=== PATIENT | female | born 1975 | race Caucasian/White ===

== ENCOUNTER 2018-11-18 05:00 | Inpatient (IN) | payer BC ==
[2018-11-14 16:17] LABS: BASOPHILS # (AUTO) 0.1 (0.0-0.1); BASOPHILS % 1.2 % (0.0-1.0); EOSINOPHILS # (AUTO) 0.3 (0.0-0.4); EOSINOPHILS % 3.3 % (0.0-6.0); HEMATOCRIT 38.8 % (34.2-44.1); HEMOGLOBIN 12.6 g/dL (12.0-16.0); LYMPHOCYTES # (AUTO) 2.2 (1.0-3.2); LYMPHOCYTES % 29.3 % (18.0-39.1); MEAN CORPUSCULAR HEMOGLOBIN 29.9 pg (28-32); MEAN CORPUSCULAR HGB CONC 32.5 g/dL (31-35); MEAN CORPUSCULAR VOLUME 91.9 fL (81-99); MONOCYTES # (AUTO) 0.8 (0.2-0.8); NEUTROPHILS # (AUTO) 4.3 (2.1-6.9); NEUTROPHILS % 55.9 % (38.7-80.0); PLATELET COUNT 215 x10e3/uL (140-360); RED BLOOD COUNT 4.22 x10e6/uL (3.6-5.1); RED CELL DISTRIBUTION WIDTH 13.4 % (11.7-14.4)
[2018-11-14 16:36] LABS: ANION GAP 11.5 mmol/L (8-16); CALCIUM 8.1 mg/dL (8.4-10.2); CREATININE, SERUM 1.71 mg/dL (0.57-1.11); POTASSIUM 4.5 mmol/L (3.5-5.1)
[2018-11-18] VITALS (41 sets, daily range): BP systolic 5–161; BP diastolic 28–95
[~2018-11-18] VITALS: Ht 167.6 cm; Wt 103.0 kg
[~2018-11-18 05:00] MED LIST: AMITRIPTYLINE H25 MG PO; ASPIRIN325 MG PO; ATORVASTATIN CA10 MG PO; B 100 PO; CYMBALTA30 MG PO; DECARA25000 UNIT PO; GABAPENTIN300 MG PO; GENERLAC10 GM/15 M PO; LISINOPRIL10 MG PO; METOPROLOL SUCC50 MG PO; NOVOLIN 70/30 SQ; OMEPRAZOLE40 MG PO; ONDANSETRON PO; ROPINIROLE HC0.25 MG PO; SPIRONOLACTONE25 MG PO; TYLENOL WITH C1 EACH PO
--- OUTSIDE RECORDS SUMMARY | 2018-11-18 05:08 | XMS REPORT ---
Author Author [facility] Address Unknown Phone Unavailable Care Team Providers Care Russet Repairer Name Role Phone Unavailable Unavailable Payers Payer Name Policy Type Policy Number Effective Date Expiration Date Problems This patient has no known problems. Allergies, Adverse Reactions, Alerts Allergy Name Allergy Type Status Severity Reaction(s) Onset Date Inactive Date Treating Clinician Comments carisoprodol DA Active SV 2018-01-18 00:00:00 prednisone DA Active U 2018-01-18 00:00:00 daptomycin DA Active SV 2018-01-18 00:00:00 Medications This patient has no known medications. Results Test Description Test Time Test Comments Text Results Atomic Results Result Comments - XR ENEMA W/AIR 2018-09-24 16:08:00 FAX: Lasha Tarango [phone] [place]: [address] St: REG Name: [facility] : 1975 Age/S: 43/F [address] Unit #: [id number] Loc: [place] [address] Phys: Lasha Garcia MD Acct: [id number] Dis Date: Status: REG CLI PHONE #: [phone] Exam Date: 09/24/2018 1112 FAX #: [phone] Reason: EPIGASTRIC [id number] EXAMS: CPT CODE: [id number] XR ENEMA W/AIR [id number] REASON FOR EXAM: EPIGASTRIC [id number] Exam Order Date: 09/24/2018 8:35 AM Attending Darshan: Lasha Garcia MD PROCEDURE: Gastrografin enema and double contrast barium enema FINDINGS: The patient was brought to radiology and placed supine on the table. The aircraft machinist radiograph shows scattered mild amount of stool in the colon. The patient was then placed in a left lateral decubitus position. An enema tip was introduced within the rectum. The retention balloon was inflated. Gastrografin was introduced within the colon through the rectal tube. There is a high-grade irregular stricture of the distal sigmoid colon near the rectum. The remaining portion of the colon is grossly unremarkable. The Gastrografin was evacuated. A repeat double contrast barium enema with focus on the sigmoid colon was performed. Again there is a high-grade irregular stenosis of the distal sigmoid colon near the rectum. Fluoroscopic time: 66 sec Fluoroscopic dose: 348 mGy Fluoroscopic images: 30 IMPRESSION: Short segment high-grade (80%) stenosis of the distal sigmoid colon with irregular wall, multiple core appearing lesion suspicious for neoplasm. at 1606 Reported and signed by: Luis Amador M.D. CC: Lasha Garcia MD Technologist: Anahi solomon; STUDENT TECHNOLOGIST Trnscrd Date/Time/By: 09/24/2018 (2647) : By: ParthaVTL Orig Print D/T: S: 09/24/2018 (8032) PAGE 1 Signed Report
[2018-11-18] MEDS ORDERED: INSULIN REGULAR, HUMAN 100 UNIT/1 ML 3ML VIAL ONE ×2 (06:21→11:26)
[2018-11-18] MEDS ORDERED: BUPIVACAINE HCL 0.5% INJ 30 ML VIAL INJ ONE (06:40)
[2018-11-18] MEDS ORDERED: LEVOFLOXACIN 500MG/D5W 100ML 100 ML IV ONE (07:16)
[2018-11-18] MEDS ORDERED: METRONIDAZOLE 500MG/NS 100ML 100 ML IV ONE (07:16)
[2018-11-18] MEDS ORDERED: METHYLENE BLUE 1% INJ 10 ML VIAL INJ ONE (09:27)
[2018-11-18] MEDS ORDERED: IOPAMIDOL 610MG/1ML 300 MG/ML VIAL IV ONE (09:31)
[2018-11-18] MEDS ORDERED: NALOXONE HCL INJ 0.4 MG/ML AMP IV PRN (11:00)
[2018-11-18] MEDS ORDERED: DIPHENHYDRAMINE HCL INJ 50 MG/ML VIAL IM PRN (11:00)
[2018-11-18] MEDS ORDERED: ACETAMINOPHEN 1000 MG/100 ML IV PRN ×2 (11:00→19:15)
[2018-11-18] MEDS ORDERED: MORPHINE SULFATE 1 MG/ML 30ML PCA IV PRN ×2 (11:00→13:00)
[2018-11-18] MEDS ORDERED: DEXTROSE 50% SYRINGE 50 ML IV PRN ×2 (11:00→19:15)
[2018-11-18] MEDS ORDERED: MORPHINE SULFATE 1 MG/ML 30ML PCA ONE (11:21)
[2018-11-18] MEDS ORDERED: INSULIN LISPRO 100 UNIT/1 ML 3ML VIAL SQ SCH (11:30)
--- NOTE | 2018-11-18 11:48 | NUR ---
RECEIVED REPORT FROM [facility] IN OR WAITING FOR PT TO ARRIVE TO UNIT
[2018-11-18] MEDS ORDERED: LEVOFLOXACIN 500MG/D5W 100ML 100 ML IV SCH (12:00)
--- NOTE | 2018-11-18 12:15 | NUR ---
PT ARRIVED TO FLOOR DROWSY BUT ALERT. PT ABD DRESSING ARE CLEAN AND DRY. SON DRAIN FULL EMPTIED 80CC. CHECKED CUSTOMS AND BORDER PROTECTION INSPECTOR PUMP WITH SHAWN AT BEDSIDE. PT UNDERSTANDS TO PRESS IF NEEDED PT IS NPO FOR S/P RESECTION BEATTY IN PLACE DRAINING CLEAR YELLOW URINE WILL TAKE V/S NOW
--- NOTE | 2018-11-18 12:20 | NUR ---
PT BP LOW UPON ARRIVAL TO UNIT, PT AROUSES WITH STERNAL RUB, BUT DROWSY ATTEMPTED TO TAKE BP MANUALLY UNABLE TO GET A READING CLAMPED BANDER AND CELLOPHANER MACHINE HELPER PUMP AND STARTED A BOLUS AT THIS TIME RAPID CALLED
--- NOTE | 2018-11-18 12:25 | NUR ---
RAPID RESPONSE TEAM ASSESSING PT, UPON ARRIVAL PT PLACE ON O2 2L , BOLUS FLOWING WITH LR , NEW IVSTARTED TO THE LEFT AC FOR ADDITIONAL ACCESS IF INDICATED . TEAM HAS AGREED PT IS CANDIDATE FOR ICU FLOOD FOR BETTER MONITORING .
--- NOTE | 2018-11-18 12:33 | NUR ---
Call placed to Dr. diaz at this time to inform that patient's blood pressure was low and we were bolusing her fluids at this time. Inquiring about other orders. Bolus patient with one liter of fluids. Went to assess patient in room with flood nurse and noted BP to be dropping noted at 61/37. Rapid response called.
[2018-11-18] MEDS ORDERED: NALOXONE HCL INJ 0.4 MG/ML AMP ONE (12:42)
--- NOTE | 2018-11-18 12:44 | NUR ---
Call placed to Dr. Palacios and informed of the new orders from Dr. diaz and the current situation of this patient. New orders to transfer to icu and continue with the rapid response. IV antibiotics were changed as well. Orders noted
[2018-11-18] MEDS ORDERED: LACTATED RINGER'S 1,000 ML ONE ×2 (12:55→18:24)
--- NOTE | 2018-11-18 13:10 | NUR ---
MD CESAR WAS NOTIFIED OF SITUATION. AGREED WITH PLAN OF CARE. PT IS ON SECOND BOLUS OF LR AT THIS TIME BP HAS ELEVATED WITH FLUIDS AND DOSE OF [facility] EMERGENCY MEDICINE PHYSICIAN ANDREA GARCIA IS STAYING WITH PT UNTIL TRANSFER IS COMPLETE. PT BP IS NOW 86/40 HR OF 85 SAT 100 ON 2L FAMILY IS AT BEDSIDE AND AWARE OF PLAN OF CARE.
[2018-11-18 13:12] LABS: ABG PH 7.33 (7.31-7.41)
[2018-11-18 13:13] LABS: ABG HCO3 23 mmol/L (23-28); ABG PCO2 43 mmHg (41-51); ABG PO2 104 mmHg (80-105)
[2018-11-18 13:19] LABS: BASOPHILS # (AUTO) 0.1 (0.0-0.1); BASOPHILS % 0.4 % (0.0-1.0); EOSINOPHILS # (AUTO) 0.1 (0.0-0.4); EOSINOPHILS % 0.9 % (0.0-6.0); HEMATOCRIT 35.5 % (34.2-44.1); HEMOGLOBIN 11.6 g/dL (12.0-16.0); LYMPHOCYTES # (AUTO) 1.6 (1.0-3.2); MEAN CORPUSCULAR HEMOGLOBIN 29.6 pg (28-32); MEAN CORPUSCULAR HGB CONC 32.7 g/dL (31-35); MEAN CORPUSCULAR VOLUME 90.6 fL (81-99); MONOCYTES # (AUTO) 0.8 (0.2-0.8); MONOCYTES % 6.3 % (4.4-11.3); NEUTROPHILS # (AUTO) 9.7 (2.1-6.9); NEUTROPHILS % 78.9 % (38.7-80.0); PLATELET COUNT 206 x10e3/uL (140-360); RED BLOOD COUNT 3.92 x10e6/uL (3.6-5.1); RED CELL DISTRIBUTION WIDTH 13.3 % (11.7-14.4)
--- NOTE | 2018-11-18 13:40 | NUR ---
PT TRANSFERRED TO ICU AT THIS TIME
[2018-11-18 13:43] LABS: ANION GAP 11.4 mmol/L (8-16); CALCIUM 7.7 mg/dL (8.4-10.2); CREATININE, SERUM 1.4 mg/dL (0.57-1.11); POTASSIUM 4.4 mmol/L (3.5-5.1)
--- NOTE | 2018-11-18 14:27 | Operative Report ---
DATE OF PROCEDURE: 11/18/2018 SURGEON: Ej Mcgee MD PREOPERATIVE DIAGNOSIS: Rectosigmoid colon stricture. POSTOPERATIVE DIAGNOSES: Rectosigmoid colon stricture and transected ureter. PROCEDURES: Laparoscopic-assisted rectosigmoid colon resection with coloproctostomy. GEOSPATIAL APPLICATIONS DEVELOPER: None. ANESTHESIA: General. INDICATIONS AND FINDINGS: The patient is a 43-year-old female with complaints of pain with constipation. Workup revealed a stricture in the rectosigmoid colon. Surgery, there was dense fibrosis around the distal sigmoid colon extending into the rectum, where there was fibrosis in the rectosigmoid colon with area of stricture that appeared to be possibly secondary to ischemia or chronic inflammation. After the resection was done, it was noted that the ureter on the left side was transected requiring repair by Urology, Dr. aBch. There was no tumor that could be identified. There was no free fluid in the abdomen. Liver had changes of cirrhosis. Small bowel appeared normal. TECHNIQUE: After adequate general endotracheal anesthesia, the patient in supine position and legs in Yellofins stirrups, the abdomen and perineum were prepped and draped in a sterile fashion with ChloraPrep to the abdomen and Betadine to the perineum. Initially, laparoscopy was done. 0.5% Marcaine infiltrated the umbilicus. Incision was made in the umbilicus, abdominal wall was elevated and Veress needle was introduced. Pneumoperitoneum was then created. A 10 mm trocar and cannula was then passed through this wound. Laparoscopic camera was introduced. Initial laparoscopy revealed extensive adhesions to lower abdomen involving the omentum. A 5 mm trocar and cannula was placed in the epigastrium just to the left of midline. The adhesions involving the omentum were lysed using a LigaSure device. Once the adhesions were lysed enough, a 5 mm trocar and cannula was placed to the left of the midline suprapubically. The left colon was mobilized by dividing peritoneal attachments. The colon was mobilized up to the splenic flexure. Colon was completely mobilized down to the sigmoid colon, where there was found to be extensive adhesions and fibrosis around the colon. Colon was mobilized. Care was taken not to injure the colon. Once the colon down to the mid sigmoid were mobilized, I decided to switch to open surgery because the adhesions became very dense, difficult to visualize. Through a lower midline incision, the peritoneal cavity was entered. The remaining adhesions involving the omentum were lysed. Omentum was adherent in the pelvis. This also was lysed. There was considerable adhesions and fibrosis around the colon. Colon was mobilized further by dividing peritoneal attachments. The left ureter was identified and preserved. As the colon was mobilized, there were very extensive adhesions around the distal sigmoid colon with fibrosis. Care was taken to stay close to the colon. The ureter had been identified as the colon was mobilized, however, it was freed from all the adhesions. Bladder was also adherent to the colon and was freed from the bladder. Colon was mobilized distally. I decided at this point to divide the colon. This was done on the distal sigmoid colon, divided with PEDRO PABLO stapler, mesentery was then divided with LigaSure device. As the colon was mobilized further, it was found to have significant fibrosis around the colon. Mesentery was divided straight down to the sacral prominence and then the mesentery divided with LigaSure device and the colon was mobilized. The area of stricture was found to be in the rectosigmoid junction. As the colon was mobilized further, vessels going into the colon were divided with LigaSure device until the colon was completely free from the bladder and free below the area of the stricture, which was palpable, grossly appeared to be significant fibrosis of the colon. Once the colon was completely free below the area of the stricture, a TX 60 stapler was placed across the rectum below the area of the stricture, staple line fired, colon was divided and removed. The proximal colon was then mobilized, easily reached the pelvis and then using an EEA stapler, anastomosis was made between the proximal and distal colon. Pursestring suture of 2-0 silk was placed into the side of the proximal colon, anvil placed in the colon, a pursestring suture tied around the anvil, EEA stapler was introduced transanally and anastomosis made between the proximal colon and the rectum using the EEA stapler and once it was completed, tissue donuts were seen to be intact. The pelvis was filled with saline and air instilled through the rectum and there was no evidence of any leakage. Examination of pelvis, ureter was identified, as I entered close to the pelvis, it was found that there was an area where the ureter was transected. With this identified, Urology was called, Dr. Bach, and the ureter was repaired directly with the details covered in Dr. Bach's operative note. Once this was completed, the wound was irrigated with saline, inspected for hemostasis, which was seen to be adequate. A 19-Dutch Robin drain was placed into the area of the ureteral repair through a separate stab wound incision. The midline fascia was closed with running suture of #1 PDS. Subcutaneous tissue was irrigated with saline. Skin to all wounds closed with gretel. Sterile dressing was applied. The patient tolerated procedure well. Estimated blood loss was 300 mL. There were no complications. All counts were correct. The patient was taken to the recovery room in satisfactory condition. MD RADHA TavarezG/MODL /[id number] cc: MD Emily Cabrera MD
[2018-11-18] MEDS: ONDANSETRON HCL INJ 2MG/ML 2ML 2 MG/ML VIAL IV PRN (14:40)
[2018-11-18] MEDS: DEXTROSE 5%/LACTATED RINGERS 1,000 ML IV SCH ×2 (14:56→18:59)
[2018-11-18] MEDS: METRONIDAZOLE 500MG/NS 100ML 100 ML IV SCH ×2 (14:56→18:24)
[2018-11-18] MEDS: MORPHINE SULFATE INJ 4 MG/ML INJ 1ML IV PRN (16:48)
[2018-11-18] MEDS ORDERED: PROPOFOL IV EMULSION 10 MG/ML 20 ML VIAL ONE (17:49)
[2018-11-18] MEDS ORDERED: ROCURONIUM BROMIDE 10 MG/ML 5ML VIAL ONE (17:49)
[2018-11-18] MEDS ORDERED: LIDOCAINE HCL 2% LOCAL INJ 5 ML SDV VIAL INJ ONE (17:49)
[2018-11-18] MEDS ORDERED: ONDANSETRON HCL INJ 2MG/ML 2ML 2 MG/ML VIAL ONE (17:49)
[2018-11-18] MEDS ORDERED: SEVOFLURANE INHAL SOLN 250 ML PEN BTL ONE (17:49)
[2018-11-18] MEDS ORDERED: FENTANYL CITRATE/PF 100MCG/2 ML INJ ONE (18:22)
[2018-11-18] MEDS ORDERED: MIDAZOLAM HCL 2 MG/2 ML VIAL ONE (18:22)
[2018-11-18] MEDS: PIPER-TAZ 3.375 GM 50 ML IV SCH (18:24)
--- NOTE | 2018-11-18 18:55 | NUR ---
nursing report given to assembler 1st shift rn
[2018-11-18] MEDS ORDERED: LACTATED RINGER'S 500 ML IV ONE (19:15)
[2018-11-18] MEDS ORDERED: VANCOMYCIN 1GM/NS 250 ML 250 ML IV ONE (19:45)
--- NOTE | 2018-11-18 20:24 | NUR ---
PATIENT received from med surg 1 after artificial breeding distributor called at 1220. patient lethargic, hypotensive. starting ivf's as ordered. abdominal incisions dressing intact but rlq oozing drainage. gustavo drain emptied twice during icu transfer. notified Dr. Palacios, Mikala, and Arely all updated with patient status. new orders received. miranda catheter changed for 20Fr 10cc nonsilicone per Dr. Bach order. pt tolerated miranda exchange well.
[2018-11-18] MEDS ORDERED: PNEUMOCOCCAL VACCINE POLYVALENT 23 MCG/0.5 ML VIAL IM NR (20:30)
[2018-11-18] MEDS ORDERED: LIDOCAINE HCL 2% LOCAL 20 ML VIAL ONE ×2 (20:40→20:46)
--- NOTE | 2018-11-18 21:00 | NUR ---
While rounding on another patient Dr. Ravinder Jacobs observed patient's critical BP status and was informed Dr. Joey Palacios had ordered a central line to be placed for Vasopressors. At that time Dr. Jacobs offered to place the central line since it would take several hours for IR to arrive and do so. Central line was placed at 2044 without incident or patient distress. Chest X-ray obtained and line placement confirmed.
[2018-11-18 21:16] LABS: HEMATOCRIT 35.2 % (34.2-44.1); HEMOGLOBIN 11.6 g/dL (12.0-16.0)
[2018-11-18] MEDS: NOREPINEPHRINE INJ 4MG/4ML 8 MG in DEXTROSE 5% 250ML 250 ML IV PRN (21:40)
--- NOTE | 2018-11-18 21:53 | Diagnostic Imaging Report ---
Examination: Single AP view of the chest. COMPARISON: None. INDICATION: Status post central line placement IMPRESSION: 1. Lines and Tubes: Right IJ central line has distal tip projecting near the cavoatrial junction 2. Hypoinflated lungs with bibasilar atelectasis. No definite consolidation or effusion. No pneumothorax. 3. Enlarged cardiac silhouette, which may be due to AP projection and low lung volumes. The intravenous crowding, likely due to low lung volumes. 4. No acute bony abnormalities. Signed by: Dr. Kareem Pelaez M.D. on 11/18/2018 9:50 PM
[2018-11-18] MEDS: INSULIN LISPRO 100 UNIT/1 ML 3ML VIAL SQ SCH (22:00)
--- NOTE | 2018-11-18 22:38 | NUR ---
Left message with Dr. Maxwell's answering service regarding consult at 9930. Awaiting return call.
[2018-11-18] MEDS: PANTOPRAZOLE 40 MG 10ML VIAL IV SCH (23:30)
--- NOTE | 2018-11-18 23:44 | Consultation ---
DATE OF CONSULTATION: 11/18/2018 SERVICE: Urology. HISTORY OF PRESENT ILLNESS: This is a 43-year-old, who underwent resection of the sigmoid colon anastomosis for stricture and abdominal pain. During the procedure, the surgeon noticed that the ureter on the left side was transected above the junction between the operative two-third and lower third of the ureter. At that point, I was called in. Lower abdominal incision between the umbilicus and symphysis pubis was done and the 2 edges of the ureter were identified. Dissection was done on the proximal as well as distal. The blood supply appeared to be good for both segments. At this point, trimming of the distal was done on each side and stay sutures were placed. Both sides were spatulated in the opposite direction. A 7-Chinese 26 cm long double-J stent was then positioned proximally as well as distally. The anastomosis was then carried using a 4-0 Vicryl absorbable sutures. Interrupted sutures were placed anteriorly and then the ureter was flipped and additional sutures were placed posteriorly. The anastomosis appeared to be watertight. The trimmed area of very distal ureter on both edges was removed. The omentum was then brought down and placed on the anastomosis. A #19 Robin was brought out with separate stab incision on the right side of the abdomen and I placed in the pelvis on the right side. Following this, wound was closed with running PDS suture and skin was approximated with skin gretel. This was done with Dr. Mcgee. The patient appeared to be stable. PHYSICAL EXAMINATION: VITAL SIGNS: Blood pressure was 125/80, pulse 80. The patient is on respirator. Appeared to be quite obese. CHEST: Clear. ABDOMEN: Incision is in the lower abdomen between symphysis pubis and umbilicus. EXTREMITIES: Lower extremities, unremarkable. LABORATORY DATA: Reviewed. White count on 11/14/2018 was 7.6, hemoglobin 12.6, creatinine 1.4 on 11/18/2018 and electrolytes otherwise normal. No urinalysis was present at that time. IMPRESSION: 1. Injury to the left ureter and junction between the operative third and lower third. 2. Status post colon resection of the sigmoid for a sigmoid stricture and abdominal pain. 3. Obesity. PLAN: Dr. Mcgee advised anastomosis of the ureter to correct the injury is required. Decision was made about this procedure. MD GRACIELA Pedraza/JOHNATHAN /[id number]
[2018-11-19] VITALS (42 sets, daily range): BP systolic 77–141; BP diastolic 32–107
--- NOTE | 2018-11-19 00:19 | Operative Report ---
DATE OF PROCEDURE: 11/18/2018 SURGEON: Emily Bach MD SERVICE: Urology. PREOPERATIVE DIAGNOSES: 1. Injury, transection of the left ureter, the junction between the upper two-third and lower third. 2. Status post resection of sigmoid stricture. 3. Obesity. POSTOPERATIVE DIAGNOSES: 1. Injury, transection of the left ureter, the junction between the upper two-third and lower third. 2. Status post resection of sigmoid stricture. 3. Obesity. OPERATIONS PERFORMED: 1. End-to-end anastomosis of the ureter following spatulation of both sides and excision of the edge. 2. Placement of omentum surrounding the anastomosis. 3. Placement of a drain 19 Robin. 4. Placement of double-J stent through the ureterotomies, 7 English 26 cm longer. 5. X-ray to verify the proper position of the stents. Radiologist is not present. MORTGAGE LOAN ASSISTANT: Ej Mcgee MD. DESCRIPTION OF PROCEDURE AND FINDINGS: Both edges of the ureter were identified. Stay sutures were placed and the edges were spatulated. Following this, a double-J stent was properly positioned in the proximal as well as distal. Anastomosis was created with no tension at all and end-to-end anastomosis was done using the spatulated of both edges. 4-0 absorbable Vicryl suture was used, interrupted sutures were placed. The edge, this was excised and removed. The anastomosis appeared to be watertight. Following this, the omentum was freed and brought down and placed around the anastomosis. A 19-Robin drain was inserted. A stab wound on the right side of the lower abdomen was used to introduce the drain that was placed in the left side around the . Following this, with Dr. Mcgee, the lower abdominal incision was closed with running #2 PDS, which was used. The skin was approximated with skin gretel. The patient tolerated the procedure well. Estimated blood loss for the . The patient was transferred to the recovery room. Emily Bach MD [facility]/MODL /[id number]
[2018-11-19] MEDS: PIPER-TAZ 3.375 GM 50 ML IV SCH ×4 (00:35→18:34)
[2018-11-19] MEDS ORDERED: SODIUM CHLORIDE 0.9% 250ML 250 ML ONE (00:37)
[2018-11-19] MEDS: METRONIDAZOLE 500MG/NS 100ML 100 ML IV SCH ×4 (01:00→18:34)
[2018-11-19] MEDS: INSULIN LISPRO 100 UNIT/1 ML 3ML VIAL SQ SCH ×6 (01:29→21:01)
[2018-11-19] MEDS: MORPHINE SULFATE INJ 4 MG/ML INJ 1ML IV PRN ×6 (02:38→23:05)
--- NOTE | 2018-11-19 02:40 | Consultation ---
DATE OF CONSULTATION: 11/18/2018 REASON FOR CONSULTATION: Medical management. CHIEF COMPLAINT: Status post sigmoid colon resection with complication of injury to the right ureter, status post right ureteral resection by Dr. Bach. SUMMARY: The patient is a 43-year-old female with postoperative hypotension and possible infection. The patient transferred to the ICU on multiple IV boluses of fluid. Her systolic blood pressure is improving, the systolic now is 104 over 57 diastolic. The patient received lactated Ringer. She seems in pain, but not in any respiratory distress. The patient is improving with her blood pressure previously was systolic in the 80s. The patient is awake. BUN and creatinine noted of 18 and 1.4 respectively. The patient had a Tillman catheter in place. She had a SON drain on the right side. She has some significant output at this time. The patient is in ICU, continue with ICU Critical Care. PAST MEDICAL HISTORY: Including liver cirrhosis, major depression, diabetes type 2, fatty liver, gastroparesis, reflux, hypertension, chronic kidney disease, history of stroke with right-sided weakness. History of back surgery, knee surgery, , hysterectomy, appendectomy, and liver biopsy. The patient is now status post rectosigmoid colon stricture resection with transected ureter with estimated blood loss approximately 300 mL. PHYSICAL EXAMINATION: VITAL SIGNS: Temperature is 98, blood pressure 104/57, pulse rate 100, and respirations 18. GENERAL: The patient is critically stable. HEENT: Normocephalic, atraumatic. Anicteric. NECK: Supple grossly. PULMONARY: Diminished breath sounds. CARDIOVASCULAR: Slightly tachycardic. ABDOMEN: Status post surgery as mentioned above. Tillman catheter in place. Diminished bowel sounds appropriate. EXTREMITIES: SCD in place. NEUROLOGIC: The patient is aphasic. She has right-sided weakness due to previous stroke. At baseline, the patient is able to ambulate with walker and assistance. LABORATORY DATA: Sodium is 137, potassium 4.4, chloride 107, bicarb 23, BUN 18, creatinine 1.4, glucose 241. WBC 12.2, hemoglobin 11.6, hematocrit 35.5, and platelets 206. IMPRESSION: 1. Status post operative day #1 sigmoid colon stricture, status post resection with right ureteral injury, status post repair. 2. Hypotension, most likely postop reaction, could be from infection, possible sepsis versus volume depletion. We will see resuscitation note. 3. Baseline multiple chronic medical problems. PLAN: Obtain repeated lab work in the morning. Continue with antibiotic, change the Levaquin to Zosyn for broader coverage. We will add on vancomycin 1 g. Continue with metronidazole IV. IV fluid resuscitation, insulin sliding scale coverage. We will do H and H every 6 hours and if needed, we will transfuse the patient. Currently, the patient is stable in the ICU with her sister by her bedside. MD GISELLE Ibrahim/MICHAELL /[id number]
[2018-11-19 03:46] LABS: HEMATOCRIT 35.9 % (34.2-44.1); HEMOGLOBIN 11.7 g/dL (12.0-16.0)
[2018-11-19] MEDS: DEXTROSE 5%/LACTATED RINGERS 1,000 ML IV SCH ×3 (03:59→19:49)
--- NOTE | 2018-11-19 04:05 | Operative Report ---
DATE OF PROCEDURE: 11/18/2018 SURGEON: Kris Jacobs MD PREOPERATIVE DIAGNOSIS: Anemia secondary to chronic blood loss and sigmoid colon stricture. POSTOPERATIVE DIAGNOSIS: Anemia secondary to chronic blood loss and sigmoid colon stricture. CONSENT: Consent was obtained from the patient and the family. ANESTHESIA: 1% lidocaine was used for local anesthesia. PROCEDURE: Central line placement under ultrasound guidance. PROCEDURE IN DETAIL: The patient was placed in a supine position. The ultrasound was used to locate the right internal jugular vein. The patient was then prepped sterilely. Ultrasound was again used to locate the right internal jugular vein. The right internal jugular vein was cannulated on the first attempt with a 16-gauge needle. A wire was then passed through the needle and the triple-lumen catheter was passed over the wire by the Seldinger technique. All the ports were flushed. The chest x-ray is pending. COMPLICATIONS: None. ESTIMATED BLOOD LOSS: None. Kris Jacobs MD [facility]/MODL /[id number]
[2018-11-19 05:28] LABS: BASOPHILS # (AUTO) 0.1 (0.0-0.1); BASOPHILS % 0.5 % (0.0-1.0); EOSINOPHILS # (AUTO) 0.1 (0.0-0.4); EOSINOPHILS % 0.9 % (0.0-6.0); HEMATOCRIT 35.4 % (34.2-44.1); HEMOGLOBIN 11.4 g/dL (12.0-16.0); LYMPHOCYTES # (AUTO) 1.5 (1.0-3.2); LYMPHOCYTES % 10.4 % (18.0-39.1); MEAN CORPUSCULAR HGB CONC 32.2 g/dL (31-35); MEAN CORPUSCULAR VOLUME 90.1 fL (81-99); MONOCYTES # (AUTO) 1.4 (0.2-0.8); MONOCYTES % 9.6 % (4.4-11.3); NEUTROPHILS # (AUTO) 11.6 (2.1-6.9); NEUTROPHILS % 78.1 % (38.7-80.0); PLATELET COUNT 268 x10e3/uL (140-360); RED BLOOD COUNT 3.93 x10e6/uL (3.6-5.1); RED CELL DISTRIBUTION WIDTH 13.6 % (11.7-14.4)
[2018-11-19 05:44] LABS: INR 1.25; PROTHROMBIN TIME 16.3 seconds (11.9-14.5)
[2018-11-19 05:45] LABS: PARTIAL THROMBOPLASTIN TIME 35.1 seconds (23.8-35.5)
[2018-11-19 05:53] LABS: ALBUMIN/GLOBULIN RATIO 0.7 (0.8-2.0); ANION GAP 9.3 mmol/L (8-16); CALCIUM 7.5 mg/dL (8.4-10.2); CREATININE, SERUM 1.58 mg/dL (0.57-1.11); POTASSIUM 4.3 mmol/L (3.5-5.1)
[2018-11-19] MEDS ORDERED: SODIUM CHLORIDE 0.9% 1000ML 1,000 ML IV ONE (06:00)
[2018-11-19] MEDS ORDERED: LEVOFLOXACIN 500MG/D5W 100ML 100 ML IV SCH (09:00)
[2018-11-19] MEDS: PANTOPRAZOLE 40 MG 10ML VIAL IV SCH (11:30)
--- NOTE | 2018-11-19 14:11 | Diagnostic Imaging Report ---
CT BRAIN WO HISTORY: Right arm weakness COMPARISON: None. TECHNIQUE: Noncontrast axial scans were obtained from skull base to the vertex. Coronal and sagittal reconstructions obtained from the axial data. One or more of the following dose reduction techniques were used: Automated exposure control, adjustment of the mA and/or kV according to patient size, and/or utilization of iterative reconstruction technique. DISCUSSION: Scalp/Skull: Unremarkable. Brain sulci: Appropriate for patient's age. Ventricles: Mild ex vacuo dilatation of the left lateral ventricle. Otherwise, unremarkable Extra-axial spaces: No masses or fluid collections. Parenchyma: Focal loss of mon-white differentiation along the left precentral gyrus and postcentral gyrus may be due to acute or subacute ischemia. Adjacent cystic encephalomalacia along the anterior left centrum semiovale and yi radiata is compatible with remote infarct. Otherwise, no mass or hemorrhage is seen. Dural sinuses: No abnormal densities. Sellar/Suprasellar region: Intact. Skull base: Intact. Incidental findings: None. IMPRESSION: 1. Focal loss of mon-white differentiation in the left perirolandic region may be due to acute or subacute ischemia. 2. Adjacent cystic encephalomalacia along the left anterior centrum semiovale and yi radiata is compatible with remote/chronic infarct. Evaluation of the left carotid artery with CTA or MRA is recommended. Signed by: Dr. Hank Ramos M.D. on 11/19/2018 2:07 PM
--- NOTE | 2018-11-19 16:23 | Diagnostic Imaging Report ---
EXAM: ABDOMEN-1VIEW (KUB) DATE: 11/19/2018 1:32 PM INDICATION: Sigmoid colon stricture COMPARISON: None FINDINGS: Supine view of the abdomen shows a normal distribution of bowel air. A left double-J ureteral stent is present extending from the level of the left kidney to the level of the bladder. There is a soft tissue drain in the pelvis. A vertical row of skin gretel is seen overlying the pelvis to the right of midline. Skin gretel are also seen in the midline upper abdomen and in the midline pelvis. Lumbar fusion hardware extends from L3 through L5. There are electrodes projected over the L1-L3 vertebral bodies. IMPRESSION: 1. No bowel dilatation or evidence for bowel obstruction. 2. Left double-J ureteral stent extends from the level of the kidney to the level of bladder. Soft tissue drain is seen in the pelvis. Signed by: Dr. Triston Franklin M.D. on 11/19/2018 4:20 PM
--- NOTE | 2018-11-19 18:02 | NUR ---
CASE MANAGEMENT INITIAL ASSESSMENT Marketing Strategy Analyst to bedside to discuss plan of care with patient/family. CM/SW role and care transitions discussed. Anticipated discharge plan discussed along with duration of care. CM/SW discussed patients right to make decisions in care. CM/SW work hours given. Patient lives: MOTHER REJI [place] Admit/Transfer: ER Hospital/ER visits since last admit:0 POA/Emergency contact: REJI MASON [phone] Current/Previous Home Health: NONE PCP/Follow-up Care: DR FATMATA MARIN Current/Previous DME: [employer] Medications (referring to index hospitalization or the first time you were in the hospital) a. Were changes made in your medications when you were in the hospital on [date of index hospitalization]? N0 b. Did you understand the changes? c. Were you able to obtain your new medications right away? Yes No n/a SNF only Explain: d. Were you able to take your medications like the doctor wanted you to? YES PER PCP e. Did the hospital give you an accurate, easy to understand list of medications when you left? N/A Scale of 1-10 how comfortable does patient feel with disease management in outpatient settin Other Services: PT'S WHOLE FAMILY ARE NURSES AND HELP PT'S MOTHER CARE FOR HER; THEY TAKE SHIFTS HELPING Employment Status: UNEMPLOYED Areas of Concerns: NONE Referral Needs: TO BE DETERMINED Education Needs: NONE IMM/HOSKINS given and signed (if applicable): N/A Goal for discharge:TO RETURN HOME WITH FAMILY CM/SW left business card at the bedside with contact information. Name and number was also written on the patients whiteboard. Patient verbalized understanding of discussion. CM will follow-up with ongoing discharge and transition of care needs.
[2018-11-19] MEDS ORDERED: CEFEPIME 1GM/NS 0.9% 50 ML 50 ML IV SCH (19:15)
[2018-11-19] MEDS: NOREPINEPHRINE INJ 4MG/4ML 8 MG in DEXTROSE 5% 250ML 250 ML IV PRN (19:49)
[2018-11-19] MEDS: ASPIRIN 300 MG SUPP PR SCH (19:49)
[2018-11-19] MEDS: ACETAMINOPHEN 1000 MG/100 ML IV PRN (20:05)
[2018-11-20] VITALS (25 sets, daily range): BP systolic 96–144; BP diastolic 41–73
[2018-11-20] MEDS: METRONIDAZOLE 500MG/NS 100ML 100 ML IV SCH ×4 (00:05→18:05)
--- NOTE | 2018-11-20 00:46 | Consultation ---
DATE OF CONSULTATION: 11/19/2018 REASON FOR CONSULTATION: Sepsis, septic shock. HISTORY OF PRESENT ILLNESS: This is a 43-year-old white female, who is currently in the intensive care unit. This patient originally comes in on November 18, 2018, with abdominal pain. She was found to have rectosigmoid colon stricture with transected urethra. She underwent laparoscopic-assisted rectosigmoid colon resection with coloproctostomy by Dr. Ej Mcgee on November 18. After resection, it was noted that the urethra on the left side required repair. Urology was contacted, Dr. Bach. There was no fluid in the abdomen, but from the operative report she has liver cirrhosis. The patient had surgery, discharged to the floor, apparently became hypotensive and was brought to the intensive care unit. I was asked to see her and she is currently alert, follows command. The patient has no complaints. She is really not a good source of information. Her mother and her family at the bedside, they provided the history. This patient who is a 43-year-old, who has history of hemochromatosis diagnosed 10 years ago. As a result, she was found to have chronic kidney disease stage III, liver cirrhosis. She gets recurrent infections. She was septic twice before. She is coming now with sigmoid stricture with abdominal pain. During surgery, she had an injury to her left urethra, underwent repair. The patient postoperatively dropped her blood pressure, so I am asked to see her. She currently looks comfortable. PAST MEDICAL HISTORY: Significant for liver cirrhosis, depression, diabetes mellitus, fatty liver, gastroparesis, reflux disease, hypertension, obesity, chronic kidney disease, history of stroke affecting her right side with weakness and speech since then. She does have history of back surgery, knee surgery, , hysterectomy, appendectomy, liver biopsy plus hemochromatosis as mentioned above about 10 years. ALLERGIES: ACCORDING TO THE FAMILY, SHE IS ALLERGIC TO GABAPENTIN, DAPTOMYCIN, PREDNISONE, CARISOPRODOL. DAPTOMYCIN CAUSES TWITCHING ACCORDING TO THE MOTHER. SOCIAL HISTORY: There is no smoking, drug abuse, or alcohol abuse. FAMILY HISTORY: Noncontributory. She has 5 siblings. REVIEW OF SYSTEMS: She is alert. Does not provide any complaints, she is not a good communicator. MEDICATION LIST: The patient is currently on Zosyn, metronidazole, acetaminophen, dextrose. PHYSICAL EXAMINATION: GENERAL: She is alert. VITAL SIGNS: Vitals stable. She had a temperature of 101.5. HEENT: She is normocephalic. She is not icteric. NECK: Supple. CHEST: Few crackles. COR: S1, S2. No S3, S4, or murmur. ABDOMEN: Soft. Bowel sounds present. No tenderness. EXTREMITIES: No edema. SKIN: No rash. IMPRESSION AND PLAN: 1. Sepsis postoperatively, probably peritonitis early. The patient clinically looks better now. I think probably there is a component of dehydration, status post rectosigmoid colon resection, status post injury to the urethra, diabetes mellitus, neuropathy, liver cirrhosis, chronic kidney disease, depression, cerebrovascular accident. I agree with Flagyl. I will change the Zosyn to cefepime. We will give her 1 g q.12 hours. Continue with Flagyl. She just spiked fever again. We will get her blood cultures. 2. Anemia. 3. Chronic kidney disease. 4. History of hemochromatosis. 5. History of stroke. 6. We will follow up. MD ARMIN Mustafa/JOHNATHAN /[id number]
--- NOTE | 2018-11-20 01:11 | Consultation ---
DATE OF CONSULTATION: 11/19/2018 Neurology consult note. HISTORY OF PRESENT ILLNESS: Ms. De Leon is a 43-year-old right-hand dominant woman with past medical history significant for multiple vascular risk factors including a prior stroke with residual dysarthria, expressive aphasia, and mild right hemiparesis, admitted to [facility] on November 18, 2018, with abdominal pain. Ms. De Leon was found to have a stricture of the sigmoid colon and was taken emergently to the operating room for partial colectomy. This procedure was complicated by injury to the left ureter. Ms. De Leon is status post repair of the left ureter. At approximately 1100 on November 19, 2018, the patient was noted to have worsened expressive aphasia as well as right hemiparesis. A CT of the brain without contrast was ordered and revealed acute to subacute ischemia in the left perirolandic region. A neurology consultation was requested for further evaluation and treatment of stroke. At present, Ms. De Leon is in the ICU, septic, on norepinephrine at 4 mcg/minute. Other than pain medication, the patient is not being sedated. According to the patient's family members who are at the bedside, Ms. De Leon's residual deficits from her prior stroke were mild to moderate. Her dysarthria and expressive aphasia were reportedly moderate. Her right hemiparesis was mild. At home, the patient was able to walk without assistance. In the community, the patient utilized a walker when ambulating. At home, Ms. De Leon is independent in her activities of daily living as well as some independent activities of daily living (preparing simple meals, washing dishes, loading the clean rice grader and reel tender, etc.). Ms. De Leon is responsible for the management of her medications at home. Her family does not know whether or not the patient has been taking her medications including aspirin 325 mg by mouth daily, as prescribed. PAST MEDICAL HISTORY: Hypertension, hyperlipidemia, insulin-dependent diabetes mellitus complicated by peripheral neuropathy, CKD stage 3B, hemochromatosis, liver cirrhosis secondary to hemochromatosis, prior stroke with residual dysarthria, expressive aphasia, and mild right hemiparesis, and restless legs syndrome. PAST SURGICAL HISTORY: As per history of present illness, thoracic spine fusion, left knee surgery, section, total hysterectomy, cholecystectomy, and appendectomy. PAST HOSPITALIZATIONS: Surgeries/procedures as listed, stroke in December 2017, urosepsis in July 2018. FAMILY MEDICAL HISTORY: Hypertension, diabetes mellitus, and coronary artery disease. SOCIAL HISTORY: Ms. De Leon is . She is unemployed. The patient does continue to smoke cigarettes. She has smoked one half to one pack of cigarettes per day for the past 25 years. The patient's family does not report current or prior alcohol or recreational drug use. HOME MEDICATIONS: Reviewed. Please see the list of home medications available in the electronic medical record. HOSPITAL MEDICATIONS: Reviewed. Please see the list of hospital medications available in the electronic medical record. ALLERGIES: CARISOPRODOL, PREDNISONE, PREGABALIN, DAPTOMYCIN. NO KNOWN FOOD ALLERGIES. NO KNOWN ALLERGIES TO LATEX. NO KNOWN ALLERGIES TO IODINE OR OTHER CONTRAST MATERIALS. PHYSICAL EXAMINATION: VITAL SIGNS: Height 68 inches, weight 240 pounds, BMI 36.5 kg/m2. Blood pressure 123/36 mmHg on norepinephrine 4 mcg/minute, pulse 115 beats per minute, respiratory rate 23 breaths per minute, and oxygen saturation 100% on 2 L by nasal cannula. GENERAL: The patient is awake and alert, appears mildly distressed. Obese. HEENT: Normocephalic, atraumatic. Pupils are equal, reactive, and sluggishly reactive to light. Moist mucous membranes. NECK: Supple. No appreciable thyromegaly. No appreciable carotid bruits. CARDIOVASCULAR: S1, S2, tachycardic, regular rhythm. No murmurs, rubs, or gallops. RESPIRATORY: Tachypneic. Clear to auscultation bilaterally. No wheezes, rhonchi, or rales. EXTREMITIES: The skin is warm and dry. No clubbing, cyanosis, or edema. The posterior tibial and dorsalis pedis pulses are 1+ and symmetric. SKIN: No rashes or lesions. NEUROLOGIC: Memory/attention: The patient is awake and alert, oriented to person only. Cranial nerves: Cranial nerve 1-not tested. Cranial nerve 2, 3, 4, and 6- pupils are equal and round, react sluggishly to light (from 4 mm to 2 mm). Extraocular movements are grossly intact. No nystagmus. Cranial nerve 5-sensation to light touch is grossly intact in the bilateral V1 through V3 distributions. Strength in the temporalis and masseter muscles appears to be within normal limits. Cranial nerve 7-the face is asymmetric on the right as are all facial movements. There is moderate to severe right central facial weakness. Cranial nerve 8-hearing is grossly intact to voice bilaterally. Cranial nerve 9, 10-the soft palate elevates equally and symmetrically. Cranial nerve 12-the tongue protrudes midline and moves symmetrically from [id number]. Strength: Bulk is normal. Ms. De Leon will not participate in a formal assessment of strength. She does move the left arm spontaneously. Strength of the finger flexors on the left is 5/5. Ms. De Leon withdraws the remaining extremities from peripheral noxious stimulation. Tone is mildly decreased in the right arm and right leg. DTRs: Deep tendon reflexes are 2+ at the left triceps, biceps, and brachioradialis. Deep tendon reflexes are 3+ at the right triceps, biceps, and brachioradialis. Deep tendon reflexes are absent and symmetric at the patellas and Achilles. Plantar responses are flexor bilaterally. Sensation: Sensation is as per motor exam. Cerebellar: Unable to assess due to lack of the patient's cooperation. Gait: Deferred. Speech: Spontaneous speech is markedly dysarthric with expressive aphasia. Repetition is intact. Involuntary movements: None. Pronator drift: As per motor exam. LABORATORY DATA: The most recent comprehensive metabolic panel is significant for sodium of 134, creatinine of 1.58, estimated GFR of 36, glucose of 291, calcium of 7.5, total protein of 4.8, and albumin of 2.0. Serum glucoses have ranged from 245 to 357 in the past 24 hours. The most recent CBC with differential and platelets reveals a white blood cell count of 14.86 with a right shift with 78.1% neutrophils, 10.4% lymphocytes, 9.6% monocytes, 0.9% eosinophils, and 0.5% basophils. An arterial blood gas drawn on November 18, 2018, revealed a pH of 7.33, pCO2 of 43, PO2 of 104, bicarbonate of 23, O2 saturation of 98.0, base excess of -3.0, and FiO2 of 28. PT 16.3, INR 1.25, and PTT 35.1. DIAGNOSTIC STUDIES: Electrocardiogram on 11/18/2018: Normal sinus rhythm at 83 beats per minute with a prolonged QT interval. Chest x-ray 11/18/2018: 1. Lines and tubes: Right IJ central line has distal tip projecting near the cavoatrial junction. 2. Hypoinflated lungs with bibasilar atelectasis. No definite consolidation or effusion. No pneumothorax. 3. Enlarged cardiac silhouette, which may be due to AP projection and low lung volumes. The intravenous crowding, likely due to low lung volumes. 4. No acute bony abnormalities. CT of the brain without contrast on 11/19/2018: On my review, there is evidence of acute to subacute ischemia in the left paralytic region. This is adjacent to cystic encephalomalacia along the left anterior centrum semiovale and yi radiata. Cerebral volumes are appropriate for age. There is mild ex vacuo dilatation of the left lateral ventricle. There are findings compatible with [id number] chronic small vessel ischemic disease. Abdomen x-ray on 11/19/2018: 1. No bowel dilatation or evidence for bowel obstruction. 2. Left double-J ureteral stent extends from the level of the kidney to the level of bladder. Soft tissue drain is seen in the pelvis. ASSESSMENT AND PLAN: Ms. De Leon is a 43-year-old right-hand dominant woman with multiple vascular risk factors, admitted to [facility] on November 18, 2018, with abdominal pain and stricture of the sigmoid colon, status post partial colectomy. On the morning of November 19, 2018, worsening of the patient's baseline dysarthria, expressive aphasia, and right hemiparesis was observed. This was subsequently found to be due to a second stroke in the left middle cerebral artery distribution. Ms. De Leon has undergone a thorough neurological examination with findings detailed above. The patient's laboratory data and other diagnostic studies have been reviewed and are documented above. RECOMMENDATIONS: 1. A lipid panel and hemoglobin A1c will be ordered. 2. An echocardiogram will be ordered. 3. Bilateral carotid artery ultrasound with Doppler will be ordered. 4. Ms. De Leon is n.p.o. at present. Therefore, she will receive aspirin 300 mg per rectum daily for stroke prophylaxis. 5. The patient is septic, on norepinephrine 4 mcg/minute. Maintain blood pressures as high as possible for the next 24-48 hours status post stroke. 6. The patient's lipid panel is pending. Her goal total cholesterol is less than 200 with an LDL of less than 70. As stated above, Ms. De Leon is n.p.o. at this time. 7. The patient's hemoglobin A1c is pending. Her goal hemoglobin A1c is less than 7.0. Ms. De Leon is on sliding scale insulin per protocol. Tight glycemic control is recommended while the patient is hospitalized. 8. Gastrointestinal prophylaxis with Protonix. Deep venous thrombosis prophylaxis with DONNIE hose and SCDs. 9. Speech and Physical therapy consultations will be delayed pending stabilization of the patient. 10. The patient will require tobacco cessation counseling prior to discharge. 11. Defer treatment of the remaining medical comorbidities to the primary and other services following the patient. Thank you for this consultation. I will continue to follow the patient while she remains in the hospital. TIME SPENT: 70 minutes. Tracy Boggs MD CP/JOHNATHAN /[id number] MTDAlicia
[2018-11-20] MEDS: INSULIN LISPRO 100 UNIT/1 ML 3ML VIAL SQ SCH ×6 (01:24→21:58)
[2018-11-20] MEDS: DEXTROSE 5%/LACTATED RINGERS 1,000 ML IV SCH (01:25)
[2018-11-20] MEDS: MORPHINE SULFATE INJ 4 MG/ML INJ 1ML IV PRN ×3 (04:04→20:18)
--- NOTE | 2018-11-20 04:30 | NUR ---
Pt SON dressing changed. Midline abd dressing reinforced with non-adherent dressing, abd, and tape. Pt gown changed. New XL Allevyn Life Sacral Patch placed on pt, glide sheet and paper pads changed, jose david-care/miranda care completed.
--- NOTE | 2018-11-20 04:50 | NUR ---
AM blood specimen collected and sent with Cori to lab.
[2018-11-20 05:41] LABS: ANION GAP 10.1 mmol/L (8-16); CREATININE, SERUM 1.74 mg/dL (0.57-1.11); POTASSIUM 4.1 mmol/L (3.5-5.1)
[2018-11-20 06:46] LABS: HEMATOCRIT 31.4 % (34.2-44.1); HEMOGLOBIN 10.3 g/dL (12.0-16.0); MEAN CORPUSCULAR HEMOGLOBIN 29.7 pg (28-32); MEAN CORPUSCULAR HGB CONC 32.8 g/dL (31-35); MEAN CORPUSCULAR VOLUME 90.5 fL (81-99); PLATELET COUNT 223 x10e3/uL (140-360); RED BLOOD COUNT 3.47 x10e6/uL (3.6-5.1)
--- NOTE | 2018-11-20 07:00 | NUR ---
Bedside report given to Shraddha MONTALVO. Care plan reviewed, no family present at this time. No signs of distress noted at this time
[2018-11-20 08:18] LABS: EOSINOPHILS % (MANUAL) 1 % (0-7); HYPOCHROMASIA SLIGHT; LYMPHOCYTES % (MANUAL) 7 % (19-48); METAMYELOCYTES % (MANUAL) 1 % (0-0); MONOCYTES % (MANUAL) 9 % (3.4-9.0); NEUTROPHILS % (MANUAL) 82 % (40-74); PLATELET ESTIMATE ADEQUATE; PLATELET MORPHOLOGY COMMENT NORMAL; RBC MORPHOLOGY COMMENT NORMAL
--- NOTE | 2018-11-20 09:37 | NUR ---
ASSESSMENT: Spiritual concern Pt's mother requested prayer in writing for pt in Pre-Op Waiting Room prayer box. Pt's mother stated pt identifies as Yarsanism. Pt sleeping soundly and no family at bedside at time of visit. Acoustical Logging Engineer left card providing information on how to contact radioisotope production operator. Will follow as able. BETINA Posadalain Spiritual Care Department O: [phone] Pager: [phone] ([phone] number calling from)
[2018-11-20] MEDS: PANTOPRAZOLE 40 MG 10ML VIAL IV SCH (10:38)
[2018-11-20] MEDS: ASPIRIN 300 MG SUPP PR SCH (10:38)
[2018-11-20] MEDS: CEFEPIME 1GM/NS 0.9% 50 ML 50 ML IV SCH ×2 (10:38→21:57)
[2018-11-20 11:23] LABS: BASOPHILS % 0.2 % (0.0-1.0); EOSINOPHILS # (AUTO) 0.1 (0.0-0.4); EOSINOPHILS % 0.3 % (0.0-6.0); HEMATOCRIT 29.7 % (34.2-44.1); HEMOGLOBIN 9.7 g/dL (12.0-16.0); LYMPHOCYTES # (AUTO) 1.1 (1.0-3.2); LYMPHOCYTES % 7.1 % (18.0-39.1); MEAN CORPUSCULAR HEMOGLOBIN 29.7 pg (28-32); MEAN CORPUSCULAR HGB CONC 32.7 g/dL (31-35); MEAN CORPUSCULAR VOLUME 90.8 fL (81-99); MONOCYTES % 6.7 % (4.4-11.3); NEUTROPHILS # (AUTO) 12.5 (2.1-6.9); NEUTROPHILS % 84.5 % (38.7-80.0); PLATELET COUNT 198 x10e3/uL (140-360); RED BLOOD COUNT 3.27 x10e6/uL (3.6-5.1)
[2018-11-20 11:31] LABS: INR 1.47; PROTHROMBIN TIME 18.4 seconds (11.9-14.5)
[2018-11-20 11:46] LABS: ALBUMIN 1.7 g/dL (3.5-5.0); ALBUMIN/GLOBULIN RATIO 0.5 (0.8-2.0); ANION GAP 8.9 mmol/L (8-16); CREATININE, SERUM 1.77 mg/dL (0.57-1.11); POTASSIUM 3.9 mmol/L (3.5-5.1)
[2018-11-20] MEDS ORDERED: FUROSEMIDE INJ 10 MG/ML 2 ML VIAL IV ONE ×2 (12:15→14:30)
--- NOTE | 2018-11-20 13:20 | NUR ---
Dr. Roy notified of new patient consult. will continue to monitor
[2018-11-20] MEDS: LACTATED RINGER'S 1,000 ML IV SCH ×2 (13:27→20:51)
--- NOTE | 2018-11-20 14:05 | Diagnostic Imaging Report ---
Examination: Single AP view of the chest. COMPARISON: 11/18/2018 INDICATION: Shortness of breath DISCUSSION: Right internal jugular central venous catheter is unchanged in position. Lung volumes remain low with interval worsening bibasilar airspace opacities, likely atelectasis. Stable cardiomediastinal contour with prominence of the pulmonary interstitium likely accentuated by low lung volumes.. No acute osseous abnormality. IMPRESSION: Persistent low lung volumes with worsening bibasilar airspace opacities, likely atelectasis. Signed by: Dr. Ej Rocha M.D. on 11/20/2018 2:01 PM
--- NOTE | 2018-11-20 14:08 | Diagnostic Imaging Report ---
ADDENDUM #1 Addendum: Additional radiograph showing the lower abdomen and pelvis is submitted, showing distal aspects of the left internal ureteral stent as well as the low margin of the pelvic surgical drain, which appears stable in position. No change to impression. Signed by: Dr. Ej Rocha M.D. on 11/24/2018 7:33 AM ORIGINAL REPORT Exam: Abdominal film Clinical History: Shortness of breath,: Stricture Comparison: 11/19/2018 DISCUSSION: Stable bowel gas pattern without dilated, air-filled loops of small bowel. Left internal ureteral stent and pelvic surgical drain appears stable in position though are incompletely visualized along their inferior aspects. Midline surgical gretel, lumbar spine fusion hardware, and electrodes projecting over L1 and L2 are also unchanged. No mass effect or organomegaly. IMPRESSION: Stable nonobstructive bowel gas pattern relative to 11/19/2018. Left ureteral stent, pelvic surgical drainage catheter, and spinal surgical hardware as above. Signed by: Dr. Ej Rocha M.D. on 11/20/2018 2:04 PM
--- NOTE | 2018-11-20 14:26 | NUR ---
WOUND CARE CONSULTATION: THIS IS A 43 YEAR OLD FEMALE PATIENT ADMITTED TO [facility] FOR SIGMOID COLON STRICTURE. DR. CESAR AND DR. RUFFIN ASSISTED IN PREFORMING LAPAROSCOPIC ASSISTED RECTOSIGMOID COLON RESECTION ON 11-18-18. HEAD TO TOE SKIN ASSESSMENT PERFORMED. PATIENT HAS A MIDLINE ABDOMINAL PRESSURE DRESSING THAT IS SATURATED AND HAVING TO BE REINFORCED EACH SHIFT OR MORE THAN ONCE A SHIFT. A SON DRAIN IS VISIBLE TO THE RIGHT LOWER QUADRANT OF THE ABDOMEN AND HAS 75CC OF SEROSANGUINEOUS DRAINAGE NOTED IN DRAIN. PHONE CALL MADE TO DR. Vladimir RUFFIN TO REPORT FINDINGS OF THE SATURATED SURGICAL DRESSING THAT IS IN PLACE AND THE CONCERN FOR SUCH FREQUENT DRESSING CHANGES. ICU NURSE RECEIVED THE RETURN CALL AND RECEIVED NEW ORDERS TO REMOVE THE SURGICAL DRESSING TO THE ABDOMEN AND REPLACE WITH CURRENT DRESSING SELECTIONS THAT WERE IN PLACE. THE PATIENT HAS A REDDENED AREA OF CONCERN TO THE SACRUM, 100% BLANCHABLE. LABS: WBC14.79 [id number] BLOOD CULTURE PENDING. MEDICATIONS: METRONIDAZOLE CEFEPIME RECOMMENDATION: -CONTINUE ALTERNATING PRESSURE RELIEF MATTRESS. -BILATERAL HEEL PROTECTORS IN PLACE UPGRADED TO BILATERAL HEEL MEDIC BOOTS TO BLE. -TURN EVERY 2 HOURS. -NURSING TO REINFORCE MIDLINE ABDOMINAL DRESSING PRN PER DR. RUFFIN'S ORDERS. -NURSING TO CLEAN REDDENED AREA TO SACRUM WITH NORMAL SALINE, PAT DRY, APPLY VENELEX AND COVER WITH ALLEVYN FOAM; CHANGE DAILY AND PRN. THANK YOU FOR THIS WOUND CARE CONSULT. Addendum: 11/20/18 at 1443 by Rosamaria Little RN Amended: Links added.
[2018-11-20] MEDS: ACETAMINOPHEN 1000 MG/100 ML IV PRN (18:06)
--- NOTE | 2018-11-20 19:00 | NUR ---
Bedside report received from Shraddha MONTALVO. Care plan reviewed, family present and at the bedside. No signs of distress or discomfort noted at this time.
--- NOTE | 2018-11-20 20:43 | Progress Note ---
DATE: 11/20/2018 SUBJECTIVE: Ms. De Leon remains in intensive care unit. No new issues. She does have a complicated medical history, expressive aphasia, hemiparesis, thoracic spine fusion, , total hysterectomy, cholecystectomy, appendectomy, hypertension, hyperlipidemia, diabetes, chronic kidney disease stage 3B, hemochromatosis, liver cirrhosis secondary to hemochromatosis, CVA with residual dysarthria, expressive aphasia, and hemiparesis with restless legs syndrome. The patient is currently in the intensive care unit. Her blood culture is still pending. Her white count was 14.79 and hemoglobin 9.7. Sodium 134, potassium 3.9, and creatinine 1.77. The patient, who is currently on metronidazole and cefepime. Chest x-ray showed bibasilar airspace opacities. IMPRESSION AND PLAN: Sepsis on admission, postop. The patient, who presented with abdominal pain, found to have rectosigmoid colon stricture, underwent laparoscopic-assisted rectosigmoid colon resection with colpotomy by Dr. Mcgee on November 18. She did have sustained trauma to the urethra intraoperatively. She was seen by Dr. Jacobs and now I am asked to see her to assist with antibiotic. Continue the current choice of IV antibiotic as ordered. Recheck CBC. Recheck chemistry panel. Continue supportive care. MD ARMIN Mustafa/JOHNATHAN /[id number]
--- NOTE | 2018-11-20 21:34 | Consultation ---
DATE OF CONSULTATION: 11/20/2018 Renal Consultation REASON FOR CONSULTATION: Acute kidney injury on chronic kidney disease. CONSULTING PHYSICIAN: Jean Marie Palacios MD HISTORY OF PRESENT ILLNESS: A 43-year-old female with history of stage 3 chronic kidney disease, diabetes, hypertension, and strokes, was admitted for sigmoid colon resection, which was complicated by injury to her right ureter, status post repair by Dr. Bach. The patient developed worsening kidney function after she was hypotensive postoperatively. She had decreased urine output, Nephrology consultation was called. The patient was unable to give history as she is aphasic from previous stroke and history is taken from medical record as well as her sisters. REVIEW OF SYSTEMS: As above, otherwise unable to obtain. PAST MEDICAL HISTORY: 1. Chronic kidney disease stage 3. 2. 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 3. Diabetes. 4. Hypertension. 5. Hemachromatosis with cirrhosis. 6. Chronic pain syndrome. 7. Neuropathy. 8. GERD. PAST SURGICAL HISTORY: 1. Back surgery. 2. Knee surgery. 3. . 4. Hysterectomy. 5. Appendectomy. SOCIAL HISTORY: Positive tobacco. No alcohol. FAMILY HISTORY: Positive for chronic kidney disease. ALLERGIES: LYRICA, DAPTOMYCIN, PREDNISONE, CARISOPRODOL. CURRENT MEDICATIONS: See list. PHYSICAL EXAMINATION: VITAL SIGNS: Blood pressure 120/65, pulse 126, temperature 99.7, T-max 100.0, respiratory rate 18 at . GENERAL: No apparent distress. HEENT: Oropharynx clear and no scleral icterus. No peripheral edema. NECK: Supple. No elevation in jugular venous pressure. No lymphadenopathy. CHEST: Clear to auscultation anteriorly bilaterally. CARDIOVASCULAR: Regular rhythm. Tachycardiac. ABDOMEN: Soft, positive bowel sounds. Surgical site clean. Drain in place. EXTREMITIES: No edema. No clubbing. No cyanosis. SKIN: Warm. IMAGING: Chest x-ray; persistent lower lung volumes with atelectasis. Abdominal x-ray shows left ureteral stent, pelvic surgical drain catheter, and spinal surgical hardware as above. LABORATORY DATA: White count 14.79 down from 15.59. Hemoglobin 9.7, hematocrit 29.7, platelets 198. Sodium 134, potassium 3.9, chloride 105, CO2 24, BUN 12, creatinine 1.77, creatinine on admission was 1.71, glucose 392, hemoglobin A1c 7.8. ASSESSMENT AND PLAN: 1. Stage 3 chronic kidney disease. The patient is at baseline. We will not do any further workup. Her acute kidney injury is due to volume depletion. We will continue with IV fluids. 2. Hyponatremia. Continue with isotonic fluids. We will follow. 3. Hypotension, improved with fluids. 4. Anemia, suspect secondary to chronic kidney disease. 5. Status post ureteral repair with stent. Keep Tillman in place. Urology following. 6. Status post sigmoid colon resection postop day #2 per General Surgery. 7. Hemochromatosis with cirrhosis. Avoid diuresing patient too much. 8. CVA with aphasia. The patient is approximately at baseline. MD DEYA Hankins/MODL /[id number]
[2018-11-21] VITALS (24 sets, daily range): BP systolic 92–155; BP diastolic 47–88
[2018-11-21] MEDS: ACETAMINOPHEN 1000 MG/100 ML IV PRN ×2 (00:24→17:36)
[2018-11-21] MEDS: METRONIDAZOLE 500MG/NS 100ML 100 ML IV SCH ×4 (00:57→18:08)
[2018-11-21] MEDS: INSULIN LISPRO 100 UNIT/1 ML 3ML VIAL SQ SCH ×5 (02:00→16:54)
[2018-11-21] MEDS: LACTATED RINGER'S 1,000 ML IV SCH (04:15)
[2018-11-21 04:29] LABS: BASOPHILS # (AUTO) 0.1 (0.0-0.1); BASOPHILS % 0.4 % (0.0-1.0); EOSINOPHILS # (AUTO) 0.2 (0.0-0.4); EOSINOPHILS % 1.2 % (0.0-6.0); HEMATOCRIT 27.6 % (34.2-44.1); HEMOGLOBIN 8.9 g/dL (12.0-16.0); LYMPHOCYTES # (AUTO) 0.9 (1.0-3.2); LYMPHOCYTES % 7.7 % (18.0-39.1); MEAN CORPUSCULAR HEMOGLOBIN 29.9 pg (28-32); MEAN CORPUSCULAR HGB CONC 32.2 g/dL (31-35); MEAN CORPUSCULAR VOLUME 92.6 fL (81-99); MONOCYTES % 8.3 % (4.4-11.3); NEUTROPHILS # (AUTO) 9.8 (2.1-6.9); PLATELET COUNT 186 x10e3/uL (140-360); RED BLOOD COUNT 2.98 x10e6/uL (3.6-5.1); RED CELL DISTRIBUTION WIDTH 14.1 % (11.7-14.4)
[2018-11-21 04:48] LABS: ANION GAP 9.6 mmol/L (8-16); CREATININE, SERUM 1.78 mg/dL (0.57-1.11); POTASSIUM 3.6 mmol/L (3.5-5.1)
[2018-11-21 05:09] LABS: PHOSPHORUS 2.2 MG/DL (2.3-4.7)
[2018-11-21] MEDS: MORPHINE SULFATE INJ 4 MG/ML INJ 1ML IV PRN ×4 (06:19→20:37)
[2018-11-21] MEDS ORDERED: MAGNESIUM SULFATE 2GM/50ML 50 ML IV ONE (07:30)
[2018-11-21] MEDS: BALSAM PERU/CASTOR OIL 5 GM OINT...G. TP SCH (10:58)
[2018-11-21] MEDS: PANTOPRAZOLE 40 MG 10ML VIAL IV SCH (10:58)
[2018-11-21] MEDS: CEFEPIME 1GM/NS 0.9% 50 ML 50 ML IV SCH ×2 (10:58→20:35)
[2018-11-21] MEDS: ASPIRIN 300 MG SUPP PR SCH (10:58)
[2018-11-21] MEDS ORDERED: FUROSEMIDE INJ 10 MG/ML 2 ML VIAL IV PRN (12:00)
[2018-11-21] MEDS ORDERED: SODIUM CHLORIDE 0.9% 250ML 250 ML IV ONE (12:00)
[2018-11-21] MEDS ORDERED: INSULIN GLARGINE 100 UNITS/ML VIAL SQ SCH (12:15)
[2018-11-21] MEDS: FUROSEMIDE INJ 10 MG/ML 2 ML VIAL IV SCH (12:45)
--- NOTE | 2018-11-21 14:00 | NUR ---
spoke to daniel, another kub was shot lower.
[2018-11-21] MEDS: DULOXETINE HCL 30 MG DELAYED RELEASE PO SCH (18:08)
[2018-11-21] MEDS: GABAPENTIN 300 MG CAP PO SCH (20:36)
[2018-11-21] MEDS: ATORVASTATIN 10 MG TAB PO SCH (20:36)
[2018-11-21] MEDS: INSULIN GLARGINE 100 UNITS/ML VIAL SQ SCH (20:36)
[2018-11-21] MEDS ORDERED: HEPARIN SOD (PORCINE) 5,000 UNIT/ML VIAL SC SCH (21:00)
--- NOTE | 2018-11-21 23:15 | NUR ---
Gave report to Manasa Lauren RN
--- NOTE | 2018-11-21 23:20 | NUR ---
Pt Transferred to 197 via Hospital Bed accompanied by 2 RNs. Awake, NAD.
[2018-11-22] VITALS (7 sets, daily range): BP systolic 111–136; BP diastolic 61–91
[2018-11-22] MEDS: METRONIDAZOLE 500MG/NS 100ML 100 ML IV SCH ×2 (00:26→05:58)
[2018-11-22] MEDS: INSULIN LISPRO 100 UNIT/1 ML 3ML VIAL SQ SCH ×4 (00:26→18:47)
[2018-11-22] MEDS ORDERED: SODIUM CHLORIDE 0.9% 250ML 250 ML ONE (00:30)
[2018-11-22] MEDS: MORPHINE SULFATE INJ 4 MG/ML INJ 1ML IV PRN ×4 (01:26→20:30)
[2018-11-22] MEDS: ACETAMINOPHEN 1000 MG/100 ML IV PRN (04:45)
[2018-11-22 05:47] LABS: BASOPHILS # (AUTO) 0.1 (0.0-0.1); BASOPHILS % 0.5 % (0.0-1.0); EOSINOPHILS # (AUTO) 0.5 (0.0-0.4); HEMATOCRIT 30.1 % (34.2-44.1); HEMOGLOBIN 9.7 g/dL (12.0-16.0); LYMPHOCYTES % 10.2 % (18.0-39.1); MEAN CORPUSCULAR HEMOGLOBIN 29.3 pg (28-32); MEAN CORPUSCULAR HGB CONC 32.2 g/dL (31-35); MEAN CORPUSCULAR VOLUME 90.9 fL (81-99); MONOCYTES # (AUTO) 0.9 (0.2-0.8); MONOCYTES % 9.8 % (4.4-11.3); NEUTROPHILS # (AUTO) 6.9 (2.1-6.9); NEUTROPHILS % 73.8 % (38.7-80.0); PLATELET COUNT 187 x10e3/uL (140-360); RED BLOOD COUNT 3.31 x10e6/uL (3.6-5.1); RED CELL DISTRIBUTION WIDTH 13.7 % (11.7-14.4)
[2018-11-22 06:21] LABS: ANION GAP 10.2 mmol/L (8-16); CALCIUM 8.2 mg/dL (8.4-10.2); CREATININE, SERUM 1.51 mg/dL (0.57-1.11); MAGNESIUM 1.4 MG/DL (1.3-2.1); PHOSPHORUS 1.8 MG/DL (2.3-4.7); POTASSIUM 3.2 mmol/L (3.5-5.1)
[2018-11-22] MEDS: CEFEPIME 1GM/NS 0.9% 50 ML 50 ML IV SCH ×2 (08:59→22:19)
[2018-11-22] MEDS: DULOXETINE HCL 30 MG DELAYED RELEASE PO SCH ×2 (08:59→16:10)
[2018-11-22] MEDS: PANTOPRAZOLE 40 MG 10ML VIAL IV SCH (08:59)
[2018-11-22] MEDS: ASPIRIN 325 MG TAB PO SCH (08:59)
[2018-11-22] MEDS: FUROSEMIDE INJ 10 MG/ML 2 ML VIAL IV SCH (08:59)
[2018-11-22] MEDS: GABAPENTIN 300 MG CAP PO SCH ×3 (08:59→22:19)
[2018-11-22] MEDS ORDERED: ACETAMINOPHEN 1000 MG/100 ML IV PRN (09:15)
[2018-11-22] MEDS ORDERED: POTASSIUM CHLORIDE 20MEQ/100ML 100 ML IV ONE (09:30)
[2018-11-22] MEDS ORDERED: POTASSIUM PHOSPHATE 20 MM in SODIUM CHLORIDE 0.9% 250ML 250 ML IV ONE (09:45)
[2018-11-22] MEDS: ONDANSETRON HCL INJ 2MG/ML 2ML 2 MG/ML VIAL IV PRN ×2 (09:50→20:30)
[2018-11-22] MEDS: BALSAM PERU/CASTOR OIL 5 GM OINT...G. TP SCH (10:02)
[2018-11-22] MEDS: INSULIN GLARGINE 100 UNITS/ML VIAL SQ SCH (20:35)
[2018-11-22] MEDS: ATORVASTATIN 10 MG TAB PO SCH (22:19)
[2018-11-23] VITALS (9 sets, daily range): BP systolic 105–117; BP diastolic 55–71
[2018-11-23] MEDS: INSULIN LISPRO 100 UNIT/1 ML 3ML VIAL SQ SCH ×5 (00:06→21:14)
[2018-11-23] MEDS: MORPHINE SULFATE INJ 4 MG/ML INJ 1ML IV PRN ×4 (01:01→21:13)
--- NOTE | 2018-11-23 04:04 | Diagnostic Imaging Report ---
EXAM: Modified barium swallow INDICATION: Evaluate swallowing COMPARISON: None FINDINGS: This examination was conducted in conjunction with speech pathologist. Patient was given, by mouth, liquids and solids of various consistencies. Examination showed premature spillage to the vallecula with mixed texture. Flash penetration was noted with large consecutive straw sips of thin liquids. No aspiration was seen. Fluoro time: 1.2 minutes IMPRESSION: <No evidence of aspiration. Please see speech pathology report for detailed description and recommendations.> Signed by: Dr. Kareem Pelaez M.D. on 11/23/2018 4:01 AM
--- NOTE | 2018-11-23 05:23 | NUR ---
Patient had small yellow BM, assisted to cleaned and changed diaper. Patient tolerated well. Will continue to monitor.
[2018-11-23 06:00] LABS: HEMATOCRIT 31.4 % (34.2-44.1); MEAN CORPUSCULAR HEMOGLOBIN 29.2 pg (28-32); MEAN CORPUSCULAR HGB CONC 31.8 g/dL (31-35); MEAN CORPUSCULAR VOLUME 91.8 fL (81-99); PLATELET COUNT 212 x10e3/uL (140-360); RED BLOOD COUNT 3.42 x10e6/uL (3.6-5.1); RED CELL DISTRIBUTION WIDTH 13.7 % (11.7-14.4)
[2018-11-23 06:23] LABS: ANION GAP 10.2 mmol/L (8-16); CALCIUM 8.1 mg/dL (8.4-10.2); CREATININE, SERUM 1.26 mg/dL (0.57-1.11); POTASSIUM 3.2 mmol/L (3.5-5.1)
[2018-11-23 06:42] LABS: MAGNESIUM 1.2 MG/DL (1.3-2.1); PHOSPHORUS 2.5 MG/DL (2.3-4.7)
--- NOTE | 2018-11-23 07:22 | NUR ---
Report given to oncoming nurse,walking round done.
[2018-11-23] MEDS ORDERED: MAGNESIUM SULFATE 2GM/50ML 50 ML IV ONE (08:30)
[2018-11-23] MEDS ORDERED: POTASSIUM CHLORIDE 20MEQ/100ML 200 ML IV ONE (08:30)
[2018-11-23] MEDS: FUROSEMIDE INJ 10 MG/ML 2 ML VIAL IV SCH (08:51)
[2018-11-23] MEDS: DULOXETINE HCL 30 MG DELAYED RELEASE PO SCH ×2 (08:51→16:14)
[2018-11-23] MEDS: GABAPENTIN 300 MG CAP PO SCH ×3 (08:51→21:13)
[2018-11-23] MEDS: CEFEPIME 1GM/NS 0.9% 50 ML 50 ML IV SCH ×2 (08:51→21:13)
[2018-11-23] MEDS: ASPIRIN 325 MG TAB PO SCH (08:51)
[2018-11-23] MEDS: BALSAM PERU/CASTOR OIL 5 GM OINT...G. TP SCH (08:51)
[2018-11-23] MEDS: PANTOPRAZOLE 40 MG 10ML VIAL IV SCH (08:51)
[2018-11-23] MEDS ORDERED: POTASSIUM CHLORIDE 10MEQ EA PO NR (12:00)
[2018-11-23] MEDS ORDERED: MAGNESIUM SULFATE 2GM/50ML IV NR (12:00)
[2018-11-23] MEDS: METRONIDAZOLE 500MG/NS 100ML 100 ML IV SCH ×2 (13:09→22:02)
[2018-11-23 16:14] LABS: BASOPHILS % 0.4 % (0.0-1.0); EOSINOPHILS # (AUTO) 0.5 (0.0-0.4); EOSINOPHILS % 5.2 % (0.0-6.0); HEMATOCRIT 32.3 % (34.2-44.1); HEMOGLOBIN 10.4 g/dL (12.0-16.0); LYMPHOCYTES # (AUTO) 1.4 (1.0-3.2); LYMPHOCYTES % 13.6 % (18.0-39.1); MEAN CORPUSCULAR HEMOGLOBIN 29.3 pg (28-32); MEAN CORPUSCULAR HGB CONC 32.2 g/dL (31-35); MONOCYTES % 10.3 % (4.4-11.3); NEUTROPHILS # (AUTO) 7.1 (2.1-6.9); PLATELET COUNT 212 x10e3/uL (140-360); RED BLOOD COUNT 3.55 x10e6/uL (3.6-5.1); RED CELL DISTRIBUTION WIDTH 13.6 % (11.7-14.4)
--- NOTE | 2018-11-23 20:39 | NUR ---
Report received from AM nurse. Patient resting on his bed. Family in the room.Denied pain and no SOB. Respiration even and unlabored. Assisted to connected 2liters oxygen via nasal canula. Spo2 maintained 93%Bed in lower position,locked. Call carl within reach. Will continue to monitor.
[2018-11-23] MEDS: ATORVASTATIN 10 MG TAB PO SCH (21:13)
[2018-11-23] MEDS: INSULIN GLARGINE 100 UNITS/ML VIAL SQ SCH (21:14)
[2018-11-24] VITALS (7 sets, daily range): BP systolic 105–138; BP diastolic 58–95
[2018-11-24] MEDS: ONDANSETRON HCL INJ 2MG/ML 2ML 2 MG/ML VIAL IV PRN ×5 (01:50→18:22)
[2018-11-24] MEDS: MORPHINE SULFATE INJ 4 MG/ML INJ 1ML IV PRN ×6 (01:50→21:46)
[2018-11-24 05:01] LABS: HEMATOCRIT 30.5 % (34.2-44.1); HEMOGLOBIN 9.8 g/dL (12.0-16.0); MEAN CORPUSCULAR HEMOGLOBIN 29.3 pg (28-32); MEAN CORPUSCULAR HGB CONC 32.1 g/dL (31-35); MEAN CORPUSCULAR VOLUME 91.3 fL (81-99); PLATELET COUNT 235 x10e3/uL (140-360); RED BLOOD COUNT 3.34 x10e6/uL (3.6-5.1); RED CELL DISTRIBUTION WIDTH 13.7 % (11.7-14.4)
[2018-11-24 05:21] LABS: ANION GAP 9.6 mmol/L (8-16); CREATININE, SERUM 1.25 mg/dL (0.57-1.11); MAGNESIUM 1.5 MG/DL (1.3-2.1); POTASSIUM 3.6 mmol/L (3.5-5.1)
--- NOTE | 2018-11-24 05:30 | NUR ---
Patient had small leaking from SON site, assisted to changed dressing at this time. Patient tolerated well. Will continue to monitor.
[2018-11-24] MEDS: METRONIDAZOLE 500MG/NS 100ML 100 ML IV SCH ×3 (05:55→22:05)
[2018-11-24] MEDS: FUROSEMIDE 40 MG TAB PO SCH ×2 (05:56→09:55)
[2018-11-24] MEDS: INSULIN LISPRO 100 UNIT/1 ML 3ML VIAL SQ SCH ×4 (07:50→21:23)
[2018-11-24] MEDS: ASPIRIN 325 MG TAB PO SCH (09:54)
[2018-11-24] MEDS: CEFEPIME 1GM/NS 0.9% 50 ML 50 ML IV SCH ×2 (09:54→21:22)
[2018-11-24] MEDS: PANTOPRAZOLE SOD 40 MG TABEC PO SCH (09:54)
[2018-11-24] MEDS: BALSAM PERU/CASTOR OIL 5 GM OINT...G. TP SCH (09:55)
[2018-11-24] MEDS: DULOXETINE HCL 30 MG DELAYED RELEASE PO SCH ×2 (09:55→16:56)
[2018-11-24] MEDS: GABAPENTIN 300 MG CAP PO SCH ×3 (09:55→21:23)
[2018-11-24] MEDS: FLUCONAZOLE 200 MG/100 ML 100 ML IV SCH (11:30)
--- NOTE | 2018-11-24 15:13 | NUR ---
ST NOTE: Attempted to see pt x 2 for f/u with diet and SLE. Pt labile and upset at 1315 and had received morphine prior to 1513 attempt. will check pt status on 11/25/18. Handoff to SELVIN Landry
[2018-11-24 15:55] LABS: BASOPHILS # (AUTO) 0.1 (0.0-0.1); BASOPHILS % 0.7 % (0.0-1.0); EOSINOPHILS # (AUTO) 0.5 (0.0-0.4); EOSINOPHILS % 4.3 % (0.0-6.0); HEMATOCRIT 32.6 % (34.2-44.1); HEMOGLOBIN 10.4 g/dL (12.0-16.0); LYMPHOCYTES # (AUTO) 1.9 (1.0-3.2); LYMPHOCYTES % 15.7 % (18.0-39.1); MEAN CORPUSCULAR HEMOGLOBIN 29.4 pg (28-32); MEAN CORPUSCULAR HGB CONC 31.9 g/dL (31-35); MEAN CORPUSCULAR VOLUME 92.1 fL (81-99); MONOCYTES # (AUTO) 1.1 (0.2-0.8); MONOCYTES % 9.2 % (4.4-11.3); NEUTROPHILS # (AUTO) 8.2 (2.1-6.9); NEUTROPHILS % 69.1 % (38.7-80.0); PLATELET COUNT 244 x10e3/uL (140-360); RED BLOOD COUNT 3.54 x10e6/uL (3.6-5.1); RED CELL DISTRIBUTION WIDTH 13.6 % (11.7-14.4)
[2018-11-24] MEDS: HOME MEDICATION--PATIENTS OWN TOP PRN (17:00)
--- NOTE | 2018-11-24 19:29 | NUR ---
Nutrition Screen Note RD Recommendation for Physician: -Rec adding ADA to GI soft diet as medically appropriate; diet texture per CORRECTIONAL MAINTENANCE TECHNICIAN Plan of Care: RD following, monitoring for tolerance and adequacy Nutrition reason for involvement: LOS Primary Diagnose(s): sigmoid colon stricture PMH: CKD III, CVA w aphasia, DM, HTN, hemachromatosis w cirrhosis, chronic pain, neuropathy, GERD Ht: 66in Wt: 238.13lb BMI: 38.4kg/m2 IBW: 130lb RD Assessment: (11/24) Chart reviewed. Labs and meds reviewed. 43yo F, who was admitted for abdominal pain. Pt underwent resection of the sigmoid colon anastomosis for stricture and abdominal pain on 11/18. Unable to obtain hx from pt due to aphasia. CORRECTIONAL MAINTENANCE TECHNICIAN following. Per SELVIN Sanchez, pt was able to tolerate milk and juice this AM. No GI complains noted. Diet has been advanced to GI soft. Will continue to monitor and follow. Please consult if pt has poor appetite while on regular diet. Current Diet: GI soft diet Malnutrition Evaluation (11/24/2018) The patient does not meet criteria for a specified degree of malnutrition at this time. Will re-evaluate at follow-up as appropriate. Diet Education Needs Assessment: Diet education not indicated. Nutrition Care Level: low Signed: Mia Belcher, MS, RD, LD
[2018-11-24] MEDS: ATORVASTATIN 10 MG TAB PO SCH (21:22)
[2018-11-24] MEDS: INSULIN GLARGINE 100 UNITS/ML VIAL SQ SCH (21:23)
[2018-11-25] VITALS (9 sets, daily range): BP systolic 94–127; BP diastolic 58–85
[2018-11-25] MEDS: MORPHINE SULFATE INJ 4 MG/ML INJ 1ML IV PRN ×6 (03:11→22:41)
[2018-11-25] MEDS: METRONIDAZOLE 500MG/NS 100ML 100 ML IV SCH ×3 (05:24→23:11)
[2018-11-25] MEDS: ASPIRIN 325 MG TAB PO SCH (09:21)
[2018-11-25] MEDS: PANTOPRAZOLE SOD 40 MG TABEC PO SCH (09:21)
[2018-11-25] MEDS: FUROSEMIDE 40 MG TAB PO SCH (09:21)
[2018-11-25] MEDS: CEFEPIME 1GM/NS 0.9% 50 ML 50 ML IV SCH ×2 (09:21→22:14)
[2018-11-25] MEDS: GABAPENTIN 300 MG CAP PO SCH ×3 (09:21→22:14)
[2018-11-25] MEDS: DULOXETINE HCL 30 MG DELAYED RELEASE PO SCH ×2 (09:21→17:50)
[2018-11-25] MEDS: BALSAM PERU/CASTOR OIL 5 GM OINT...G. TP SCH (09:21)
[2018-11-25] MEDS: INSULIN LISPRO 100 UNIT/1 ML 3ML VIAL SQ SCH ×4 (09:22→22:12)
--- NOTE | 2018-11-25 10:04 | Diagnostic Imaging Report ---
Abdomen, one view dated 11/25/2018 at 8:46 AM. History: Ureteral stent placement. Comparison: KUB dated 11/20/2018 Findings: Spinal fixator device is present. Rods overlie the lower lumbar spine. Skin gretel overlying the abdomen. Surgical drain within the pelvis. There is a double-J ureteral stent on the left in appropriate position. The intestinal gas pattern is nonobstructive with contrast outlining the colon. There no masses or abnormal calcifications. The osseous structures are intact. IMPRESSION: No acute abdominal abnormality. Signed by: Dr. Drew Garibay DO on 11/25/2018 10:00 AM
[2018-11-25] MEDS: FLUCONAZOLE 200 MG/100 ML 100 ML IV SCH (10:50)
[2018-11-25] MEDS: ONDANSETRON HCL INJ 2MG/ML 2ML 2 MG/ML VIAL IV PRN (10:58)
[2018-11-25] MEDS ORDERED: SODIUM CHLORIDE 0.9% 250ML 250 ML ONE (11:00)
--- NOTE | 2018-11-25 14:05 | NUR ---
ST NOTE: Att to see pt at 0945, pt having dressing changed. Now upgraded to mechanical soft with thin liquids, tolerating per RN. Will return if time permits. Handoff to SELVIN Landry
[2018-11-25] MEDS: HOME MEDICATION--PATIENTS OWN TOP PRN (14:31)
--- NOTE | 2018-11-25 16:33 | NUR ---
ORDER FOR LTAC FROM DR RUFFIN NURSE TAYLER NOTIFIED DR CESAR OF LTAC ORDER AND HE CANCELLED ORDER WBC GOING UP SPOKE WITH PT'S MOTHER, REJI MI REGARDING EVENTUAL DISCHARGE PLANS SHE WOULD LIKE PT TO GO TO ACUTE REHAB SINCE SHE DID HAVE A STROKE AFTER SURGERY AND IS NOT NEAR BACK TO HER BASELINE NOTE ON FRONT OF CHART FOR DR CESAR NOTIFYING HIM OF MOTHER'S WISHES WHEN PT IS MEDICALLY STABLE CM TO FOLLOW
[2018-11-25] MEDS: INSULIN GLARGINE 100 UNITS/ML VIAL SQ SCH (22:12)
[2018-11-25] MEDS: ATORVASTATIN 10 MG TAB PO SCH (22:14)
[2018-11-26] VITALS (8 sets, daily range): BP systolic 95–147; BP diastolic 53–94
[2018-11-26] MEDS: METRONIDAZOLE 500MG/NS 100ML 100 ML IV SCH ×3 (05:24→22:00)
[2018-11-26] MEDS: MORPHINE SULFATE INJ 4 MG/ML INJ 1ML IV PRN ×3 (05:25→20:34)
--- NOTE | 2018-11-26 06:37 | NUR ---
patient is running low grade fever its 100.7 ; made dr Mcgee aware, he ordered tylenol.
[2018-11-26] MEDS ORDERED: ACETAMINOPHEN 325 MG TAB ONE (06:38)
[2018-11-26] MEDS: INSULIN LISPRO 100 UNIT/1 ML 3ML VIAL SQ SCH ×4 (07:30→21:00)
[2018-11-26] MEDS: PANTOPRAZOLE SOD 40 MG TABEC PO SCH (08:56)
[2018-11-26] MEDS: FUROSEMIDE 40 MG TAB PO SCH (08:57)
[2018-11-26] MEDS: BALSAM PERU/CASTOR OIL 5 GM OINT...G. TP SCH (08:57)
[2018-11-26] MEDS: ASPIRIN 325 MG TAB PO SCH (08:57)
[2018-11-26] MEDS: DULOXETINE HCL 30 MG DELAYED RELEASE PO SCH ×2 (08:57→16:53)
[2018-11-26] MEDS: CEFEPIME 1GM/NS 0.9% 50 ML 50 ML IV SCH (08:57)
[2018-11-26] MEDS: GABAPENTIN 300 MG CAP PO SCH ×3 (08:57→20:34)
--- NOTE | 2018-11-26 10:39 | NUR ---
GURWINDER called pt mother, Gaby De Leon [phone] to notify her of order for acute inpatient rehab eval. She states she wants [facility] and gave telephone consent for choice letter for [facility] in [place]. GURWINDER called and notified Rachael Cash BSN RN, liaison and nurse with Dr. Davenport of pt choice. GURWINDER called Marii Raines [phone], liaison with [facility] and notified her of eval. She will be by later to spanish moss picker clinical. Faxed demographics at this time to [phone] [address]
[2018-11-26] MEDS: FLUCONAZOLE 200 MG/100 ML 100 ML IV SCH (12:56)
--- NOTE | 2018-11-26 14:00 | NUR ---
[facility] called to state they are in network with insurance and requested CM to fax clinical. Clinical faxed to [phone]
--- NOTE | 2018-11-26 19:07 | NUR ---
Received change of shift report from AM nurse. Rounds completed.
--- NOTE | 2018-11-26 20:09 | NUR ---
Patient turned and repositioned in bed. Pt had med, brown, soft BM. Tillman to bedside drainage 400cc dark yellow urine. SON drain with 40cc of light brown thick liquid. Patient c/o pain = 8 gen. with f/u with pain meds as ordered by MD. Cream applied to ailyn area on sacrum. Elevated right arm on pillow.
[2018-11-26] MEDS: ATORVASTATIN 10 MG TAB PO SCH (20:33)
[2018-11-26] MEDS: INSULIN GLARGINE 100 UNITS/ML VIAL SQ SCH (21:00)
[2018-11-27] VITALS (7 sets, daily range): BP systolic 113–153; BP diastolic 61–88
--- NOTE | 2018-11-27 | NUR ---
Patient turned q2 hours and prn. Patient moans but denies painb at this time. Family at bedside. Patient had BM x2.
[2018-11-27] MEDS: METRONIDAZOLE 500MG/NS 100ML 100 ML IV SCH ×3 (05:18→21:40)
--- NOTE | 2018-11-27 06:18 | NUR ---
Patient refused blood draw from line. and refused antibiotic. Will f/u.
[2018-11-27] MEDS: INSULIN LISPRO 100 UNIT/1 ML 3ML VIAL SQ SCH ×4 (07:30→21:40)
[2018-11-27 07:33] LABS: ANION GAP 9.1 mmol/L (8-16); CALCIUM 8.4 mg/dL (8.4-10.2); CREATININE, SERUM 1.33 mg/dL (0.57-1.11); POTASSIUM 3.1 mmol/L (3.5-5.1)
[2018-11-27] MEDS: PANTOPRAZOLE SOD 40 MG TABEC PO SCH (08:18)
[2018-11-27] MEDS: BALSAM PERU/CASTOR OIL 5 GM OINT...G. TP SCH (08:19)
[2018-11-27] MEDS: GABAPENTIN 300 MG CAP PO SCH ×3 (08:19→21:40)
[2018-11-27] MEDS: FUROSEMIDE 40 MG TAB PO SCH (08:19)
[2018-11-27] MEDS: ASPIRIN 325 MG TAB PO SCH (08:19)
[2018-11-27] MEDS: DULOXETINE HCL 30 MG DELAYED RELEASE PO SCH ×2 (08:19→16:58)
[2018-11-27] MEDS: MORPHINE SULFATE INJ 4 MG/ML INJ 1ML IV PRN ×4 (08:45→19:45)
[2018-11-27] MEDS ORDERED: POTASSIUM CHLORIDE 10MEQ EA PO ONE (09:00)
--- NOTE | 2018-11-27 09:13 | NUR ---
KAVON CALLED AND STATED SHE SPOKE WITH MOTHER AND WAS TOLD BY DOCTOR SHE WAS GOING TO NEED ANOTHER SURGERY AT [facility] SO NOT APPROPRIATE FOR [facility], MOTHER STATES SHE WANTS TO SPEAK WITH MD TODAY AND THEN MAKE A DECISION IF SHE WANTS [facility] OR SNF.
[2018-11-27] MEDS ORDERED: POTASSIUM CHLORIDE 20 MEQ TAB CR PO ONE (09:45)
[2018-11-27] MEDS: FLUCONAZOLE 200 MG/100 ML 100 ML IV SCH (11:00)
--- NOTE | 2018-11-27 12:10 | NUR ---
ST NOTE: Pt having lunch and refused Speech-Language Therapy at this time. Will continue to follow. Pt to d/c to IRF
--- NOTE | 2018-11-27 15:26 | NUR ---
Dr. Maxwell at the bedside making rounds. Per Flagyl and Diflucan should remain IV and not switch to PO. Dr. Maxwell removed right quadrant dressing with moderate amount of brownish drainage noted. SON site cleanse and drainage sponge/ABD pad applied.
--- NOTE | 2018-11-27 18:47 | Progress Note ---
DATE: 11/27/2018 SUBJECTIVE: The patient is out of ICU, comfortable, lying in bed. No problems. Family at bedside. She states she is feeling better. She still has a drain. OBJECTIVE: GENERAL: She is currently alert, does not seem to be in acute distress. VITAL SIGNS: Stable, currently afebrile. HEENT: She is not icteric. NECK: Supple. No JVD. No lymphadenopathy. No thyromegaly. CHEST: Clear bilateral. HEART: S1, S2. No S3, S4, or murmur. ABDOMEN: Soft. Bowel sounds present. No tenderness. She does have a drain from the right lower quadrant seems more like stool material. ASSESSMENT AND PLAN: 1. This patient is status post sigmoid colon resection postop with injury to her urethra status post stent repair concerned now about the present fistula. 2. Sepsis postop, resolved. 3. Status post surgery for rectosigmoid colon stricture status post laparoscopic-assisted rectosigmoid colon resection on November 18, 2018. 4. 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 She is currently on Flagyl, currently on fluconazole. She had low fever on November 26 at 100.3, but nothing since then. We will continue with IV antibiotic for now. We will follow and discuss with the family. MD ARMIN Mustafa/JOHNATHAN /[id number]
--- NOTE | 2018-11-27 19:03 | NUR ---
Walking round done and report given. Call carl within reach. Mom at the bedside.
[2018-11-27] MEDS: INSULIN GLARGINE 100 UNITS/ML VIAL SQ SCH (21:40)
[2018-11-27] MEDS: ATORVASTATIN 10 MG TAB PO SCH (21:40)
[2018-11-27] MEDS ORDERED: SODIUM CHLORIDE 0.9% 250ML 250 ML ONE (22:40)
[2018-11-28] VITALS (8 sets, daily range): BP systolic 111–126; BP diastolic 63–81
[2018-11-28] MEDS: MORPHINE SULFATE INJ 4 MG/ML INJ 1ML IV PRN ×5 (01:21→22:09)
[2018-11-28 05:21] LABS: BASOPHILS # (AUTO) 0.1 (0.0-0.1); BASOPHILS % 0.8 % (0.0-1.0); EOSINOPHILS # (AUTO) 0.5 (0.0-0.4); EOSINOPHILS % 3.9 % (0.0-6.0); HEMATOCRIT 30.7 % (34.2-44.1); HEMOGLOBIN 9.9 g/dL (12.0-16.0); LYMPHOCYTES # (AUTO) 2.1 (1.0-3.2); LYMPHOCYTES % 15.3 % (18.0-39.1); MEAN CORPUSCULAR HEMOGLOBIN 28.9 pg (28-32); MEAN CORPUSCULAR HGB CONC 32.2 g/dL (31-35); MEAN CORPUSCULAR VOLUME 89.8 fL (81-99); MONOCYTES # (AUTO) 1.5 (0.2-0.8); MONOCYTES % 11.2 % (4.4-11.3); NEUTROPHILS # (AUTO) 9.1 (2.1-6.9); NEUTROPHILS % 67.5 % (38.7-80.0); PLATELET COUNT 482 x10e3/uL (140-360); RED BLOOD COUNT 3.42 x10e6/uL (3.6-5.1); RED CELL DISTRIBUTION WIDTH 13.3 % (11.7-14.4)
[2018-11-28 05:47] LABS: ANION GAP 10.4 mmol/L (8-16); CALCIUM 8.3 mg/dL (8.4-10.2); CREATININE, SERUM 1.24 mg/dL (0.57-1.11); POTASSIUM 3.4 mmol/L (3.5-5.1)
[2018-11-28] MEDS: METRONIDAZOLE 500MG/NS 100ML 100 ML IV SCH (06:37)
[2018-11-28] MEDS: POTASSIUM CHLORIDE 10MEQ EA PO SCH (06:37)
--- NOTE | 2018-11-28 07:15 | NUR ---
Bedside report rec'd. Patient resting, eyes closed. No acute distress noted.
[2018-11-28] MEDS: INSULIN LISPRO 100 UNIT/1 ML 3ML VIAL SQ SCH ×4 (07:30→21:01)
[2018-11-28] MEDS ORDERED: POTASSIUM CHLORIDE 10MEQ EA PO ONE (08:45)
[2018-11-28] MEDS: PANTOPRAZOLE SOD 40 MG TABEC PO SCH (09:25)
[2018-11-28] MEDS: ASPIRIN 325 MG TAB PO SCH (09:25)
[2018-11-28] MEDS: DULOXETINE HCL 30 MG DELAYED RELEASE PO SCH ×2 (09:26→16:15)
[2018-11-28] MEDS: GABAPENTIN 300 MG CAP PO SCH ×3 (09:26→21:01)
[2018-11-28] MEDS: BALSAM PERU/CASTOR OIL 5 GM OINT...G. TP SCH (09:26)
[2018-11-28] MEDS: FUROSEMIDE 40 MG TAB PO SCH (09:26)
--- NOTE | 2018-11-28 10:09 | NUR ---
SPOKE WITH DR ROLLE AND NURSE MAUREEN REGARDING DC PLAN DR ROLLE STATES HE HAS ALREADY SPOKE WITH FAMILY REGARDING [facility] AND THEY ARE "OK WITH IT" MAUREEN CALLING TO GET ORDER FROM DR CESAR FOR [facility]
--- NOTE | 2018-11-28 10:15 | NUR ---
ORDER ALREADY IN CHART FOR ACUTE REHAB CRISTIAN CALLED PT'S MOTHER REJI MI [phone] SHE VERIFIED THAT SHE SPOKE WITH DR ROLLE AND HAS DECIDED TO GO WITH [facility] CHOICE LETTER AND MOT CONSENTS OVER PHONE TAKEN
[2018-11-28] MEDS: FLUCONAZOLE 100 MG TAB PO SCH (12:05)
[2018-11-28] MEDS: METRONIDAZOLE 500 MG TAB PO SCH ×3 (12:05→21:29)
--- NOTE | 2018-11-28 13:45 | NUR ---
CALLED ANDREWS WITH [facility] AND NOTIFIED HER OF CONSULT PHONE: [phone] FAXED CLINICAL TO [facility] [phone] CONFIRMATION REC'D
[2018-11-28] MEDS: INSULIN GLARGINE 100 UNITS/ML VIAL SQ SCH (21:01)
[2018-11-28] MEDS: ATORVASTATIN 10 MG TAB PO SCH (21:01)
[2018-11-28] MEDS: HEPARIN SOD (PORCINE) 5,000 UNIT/ML VIAL SC SCH (21:02)
[2018-11-28] MEDS: ONDANSETRON HCL INJ 2MG/ML 2ML 2 MG/ML VIAL IV PRN (22:09)
--- NOTE | 2018-11-28 22:48 | NUR ---
Patient had small yellow BM, assisted to cleaned and changed diaper/pads. Patient tolerated well. Will continue to monitor.
[2018-11-29] VITALS (8 sets, daily range): BP systolic 105–142; BP diastolic 50–89
[2018-11-29] MEDS: ACETAMINOPHEN 325 MG TAB PO PRN ×3 (00:11→22:13)
--- NOTE | 2018-11-29 00:24 | Consultation ---
DATE OF CONSULTATION: 11/28/2018 REASON FOR CONSULTATION: 1. Status post left MCA CVA stroke with right-sided hemiparesis upper extremity, more pronounced in the lower extremity. 2. Previous history of CVA. 3. Recent stricture surgery with interruption of ureter and urethral fixation. HISTORY: A [id number]-female, right-hand dominant with past medical history of CVA, right-sided weakness mild. She came to the hospital on October with abdominal pain and found to have strictures in the sigmoid colon and was taken to surgery and underwent partial colectomy. The patient's case was complicated by injury to the left ureter and it was repaired. The patient on November 19 was found to have expressive aphasia was worsening as well as right-sided hemiparesis. CT of the brain revealed an acute to subacute left region stroke. Neurology consult was obtained. The patient is confirmed to have a left MCA CVA with worsening right upper extremity weakness. She is since doing a little bit better PAST MEDICAL HISTORY: Hypertension, hyperlipidemia, diabetes, diabetic peripheral neuropathy, CKD stage 3, hemochromatosis, liver cirrhosis secondary to hemochromatosis, prior CVA with dysarthria, mild right upper extremity weakness. SURGERIES: Include thoracic spine fusion, left knee surgery, , hysterectomy, cholecystectomy, appendectomy. FAMILY HISTORY: Hypertension, diabetes, and coronary artery disease runs in the family. SOCIAL HISTORY: The patient is , unemployed, lives with her mother, was somewhat ambulatory. HABITS: Was smoking. Nondrinker. ALLERGIES: SOMA, PREDNISONE, PREGABALIN, DAPTOMYCIN. NO KNOWN FOOD ALLERGIES. REVIEW OF SYSTEMS: CONSTITUTIONAL: According to the patient, she had some right-sided mild weakness. She has dysarthria and no complaints of swallow issues. Rest of the review of systems essentially negative. LABORATORY DATA: White cell count 13.4, hemoglobin 9.9, hematocrit 30.7, platelets of . Sodium 135, potassium 3.4, BUN of 10, creatinine 1.24. PHYSICAL EXAMINATION: GENERAL: The patient is awake, alert, dysarthric. She has right-sided facial weakness. EYES: Gaze is conjugate. TONGUE: Deviates to the right with protrusion. NECK: Supple. HEART: Regular. LUNGS: Fair air entry throughout. ABDOMEN: Protuberant little bit, but she has dressing and gretel in place where she had surgery to her abdomen. EXTREMITIES: Functional range of motion to the left arm and left leg. No movement of right upper extremity. No active movement of the right upper extremity, right lower extremity. She is has very good strength. Sensory gavin, diminished sensation to the right arm and she said her right leg sensation is normal as is left arm and left leg. Manual muscle testing 5/5 strength in left arm and left leg throughout, and right lower extremity and right leg demonstrates 4/5 strength, and the right upper extremity 0/5 strength. Therapies have not been initiated. IMPRESSION: 1. Status post left MCA CVA with right-sided hemiparesis upper extremity history of stroke with right-sided mild weakness. 2. Recent surgery for stricture treatment. 3. Ureteral repair. 4. History of cirrhosis of the liver secondary to hemochromatosis. 5. The patient with hypertension. PLAN: Therapy will be initiated most likely could benefit from inpatient rehab. We will follow along and check with insurance Thank you once again for allowing me to participate in the care of this unfortunate patient. Arian Davenport DO RPL/MODL /[id number]
[2018-11-29] MEDS: MORPHINE SULFATE INJ 4 MG/ML INJ 1ML IV PRN ×6 (01:16→20:41)
[2018-11-29] MEDS: METRONIDAZOLE 500 MG TAB PO SCH ×3 (05:19→22:09)
[2018-11-29] MEDS: POTASSIUM CHLORIDE 10MEQ EA PO SCH (05:19)
[2018-11-29 05:26] LABS: BASOPHILS # (AUTO) 0.1 (0.0-0.1); EOSINOPHILS # (AUTO) 0.5 (0.0-0.4); HEMATOCRIT 31.1 % (34.2-44.1); HEMOGLOBIN 9.9 g/dL (12.0-16.0); LYMPHOCYTES % 16.8 % (18.0-39.1); MEAN CORPUSCULAR HEMOGLOBIN 28.7 pg (28-32); MEAN CORPUSCULAR HGB CONC 31.8 g/dL (31-35); MEAN CORPUSCULAR VOLUME 90.1 fL (81-99); MONOCYTES # (AUTO) 1.5 (0.2-0.8); MONOCYTES % 12.7 % (4.4-11.3); NEUTROPHILS # (AUTO) 7.6 (2.1-6.9); NEUTROPHILS % 63.9 % (38.7-80.0); PLATELET COUNT 498 x10e3/uL (140-360); RED BLOOD COUNT 3.45 x10e6/uL (3.6-5.1); RED CELL DISTRIBUTION WIDTH 13.4 % (11.7-14.4)
[2018-11-29 05:47] LABS: ANION GAP 10.9 mmol/L (8-16); CALCIUM 8.2 mg/dL (8.4-10.2); CREATININE, SERUM 1.48 mg/dL (0.57-1.11); POTASSIUM 3.9 mmol/L (3.5-5.1)
--- NOTE | 2018-11-29 06:57 | NUR ---
Report given to WILLOW MONTALVO.
[2018-11-29] MEDS: INSULIN LISPRO 100 UNIT/1 ML 3ML VIAL SQ SCH ×4 (07:52→20:40)
[2018-11-29] MEDS: FLUCONAZOLE 100 MG TAB PO SCH (08:18)
[2018-11-29] MEDS: HEPARIN SOD (PORCINE) 5,000 UNIT/ML VIAL SC SCH ×2 (08:18→20:40)
[2018-11-29] MEDS: DULOXETINE HCL 30 MG DELAYED RELEASE PO SCH ×2 (08:18→16:37)
[2018-11-29] MEDS: PANTOPRAZOLE SOD 40 MG TABEC PO SCH (08:18)
[2018-11-29] MEDS: ASPIRIN 325 MG TAB PO SCH (08:18)
[2018-11-29] MEDS: FUROSEMIDE 40 MG TAB PO SCH (08:19)
[2018-11-29] MEDS: GABAPENTIN 300 MG CAP PO SCH ×3 (08:19→20:39)
[2018-11-29] MEDS: FUROSEMIDE 20 MG TAB PO SCH (08:47)
[2018-11-29] MEDS: BALSAM PERU/CASTOR OIL 5 GM OINT...G. TP SCH (13:25)
[2018-11-29] MEDS: AMITRIPTYLINE HCL 25 MG TAB PO SCH (20:39)
[2018-11-29] MEDS: ATORVASTATIN 10 MG TAB PO SCH (20:39)
[2018-11-29] MEDS: INSULIN GLARGINE 100 UNITS/ML VIAL SQ SCH (20:41)
--- NOTE | 2018-11-29 22:03 | Progress Note ---
DATE: 11/29/2018 SUBJECTIVE: Ms. Moises Singh is doing better. More alert. No complaints. Her sister at the bedside. I reviewed with them her laboratory data and her findings. The patient has no complaints. REVIEW OF SYSTEMS: HEENT: Negative. PULMONARY: Negative. CARDIAC: Negative. : Negative. GI: Negative. PHYSICAL EXAMINATION: GENERAL: She is currently alert, follows commands, does not seem to be in acute distress. VITAL SIGNS: Stable. Currently afebrile. HEENT: She is not icteric. NECK: Supple. CHEST: Clear. COR: S1, S2. No S3, S4, or murmur. ABDOMEN: Soft. Bowel sounds present. No tenderness. She does have a drain. Does have thick brownish material. IMPRESSION: This patient is a 43-year-old white female, who has history of cerebrovascular accident and right-sided weakness, was admitted on November 18 with abdominal pain and found to have severe stricture in the sigmoid colon and was taken to surgery, underwent partial colectomy, complicated by injury to the left urethra, which was repaired on November 19. She had aphasia. The CAT scan of the brain showed acute and subacute stroke. Neurology was consulted and confirmed to have a left middle cerebral artery cerebrovascular accident with worsening right upper extremity weakness. The patient also had sepsis and peritonitis and grew yeast from the fluid. The patient is currently more alert, comfortable, stable. Concerned if she is developing a fistula because we can see stools coming from the drain. Surgery is following, but from Infectious Disease point of view, she is doing much better. Continue with fluconazole and metronidazole. She is getting them orally at the present time. Acute kidney injury/chronic kidney disease, stable. Diabetes mellitus. PLAN: Plan for her to go to rehab. From Infectious Disease point of view, I would like to take the central line out. If possible, we will change her pain medication to oral p.r.n. We will follow. MD ARMIN Mustafa/MODL /[id number]
[2018-11-30] VITALS (8 sets, daily range): BP systolic 106–127; BP diastolic 67–87
[2018-11-30] MEDS: HYDROCODONE/APAP 7.5MG-325MG 1 EA TAB PO PRN ×3 (02:57→21:05)
[2018-11-30 05:18] LABS: ANION GAP 14.2 mmol/L (8-16); CALCIUM 8.9 mg/dL (8.4-10.2); CREATININE, SERUM 1.49 mg/dL (0.57-1.11); POTASSIUM 4.2 mmol/L (3.5-5.1)
[2018-11-30] MEDS: METRONIDAZOLE 500 MG TAB PO SCH ×3 (05:50→22:40)
[2018-11-30] MEDS: POTASSIUM CHLORIDE 10MEQ EA PO SCH (05:50)
[2018-11-30] MEDS: PANTOPRAZOLE SOD 40 MG TABEC PO SCH (07:51)
[2018-11-30] MEDS: INSULIN LISPRO 100 UNIT/1 ML 3ML VIAL SQ SCH ×4 (07:54→21:04)
[2018-11-30] MEDS: ASPIRIN 325 MG TAB PO SCH (08:34)
[2018-11-30] MEDS: DULOXETINE HCL 30 MG DELAYED RELEASE PO SCH ×2 (08:34→17:03)
[2018-11-30] MEDS: FUROSEMIDE 20 MG TAB PO SCH (08:34)
[2018-11-30] MEDS: BALSAM PERU/CASTOR OIL 5 GM OINT...G. TP SCH (08:34)
[2018-11-30] MEDS: FLUCONAZOLE 100 MG TAB PO SCH (08:34)
[2018-11-30] MEDS: DOCUSATE SODIUM 100 MG CAP PO SCH ×2 (08:34→14:21)
[2018-11-30] MEDS: HEPARIN SOD (PORCINE) 5,000 UNIT/ML VIAL SC SCH ×2 (08:34→21:05)
[2018-11-30] MEDS: GABAPENTIN 300 MG CAP PO SCH ×3 (08:35→21:05)
[2018-11-30] MEDS: MORPHINE SULFATE INJ 4 MG/ML INJ 1ML IV PRN ×2 (09:41→18:28)
--- NOTE | 2018-11-30 17:52 | Progress Note ---
DATE: 11/30/2018 SUBJECTIVE: Ms. De Leon is doing better. No new complaints. OBJECTIVE: GENERAL: Alert, follows some simple commands and does not seem to be in acute distress. VITAL SIGNS: Stable. Afebrile. Her T-max 100.1. HEENT: Normocephalic, not icteric. NECK: Supple. No JVD. No lymphadenopathy. No thyromegaly. CHEST: Clear bilateral heart S1, S2. No S3, S4, or murmur. ABDOMEN: Soft. Bowel sounds present. No tenderness. EXTREMITIES: No edema. The drain still in the right lower quadrant showing stool type material, but liquid. IMPRESSION: 1. Low fever today. The central line was removed yesterday. We will observe the patient clinically, she seems okay now. Said she spiked high fever. May have blood cultures, CT scan, and put her back on antibiotic. We just discontinued antibiotic that too recently. 2. Chronic kidney disease, stage 3. 3. Status post surgery of the rectosigmoid colon stricture with urethra injury, status post surgery, status post peritonitis, now concerned about perhaps fistula, but stable. 4. History of hemochromatosis, history of stroke now with recent stroke. Leah tropicalis in the abdominal fluid. Currently on metronidazole, Neurontin, Florien p.r.n., fluconazole, Cymbalta, and Zofran. We will follow. MD ARMIN Mustafa/JOHNATHAN /[id number]
[2018-11-30] MEDS: INSULIN GLARGINE 100 UNITS/ML VIAL SQ SCH (21:04)
[2018-11-30] MEDS: ATORVASTATIN 10 MG TAB PO SCH (21:05)
[2018-11-30] MEDS: AMITRIPTYLINE HCL 25 MG TAB PO SCH (21:05)
[2018-12-01] VITALS (7 sets, daily range): BP systolic 101–111; BP diastolic 57–77
[2018-12-01] MEDS: MORPHINE SULFATE INJ 4 MG/ML INJ 1ML IV PRN ×3 (02:44→15:41)
[2018-12-01] MEDS: METRONIDAZOLE 500 MG TAB PO SCH ×2 (05:45→15:02)
[2018-12-01] MEDS: POTASSIUM CHLORIDE 10MEQ EA PO SCH (05:45)
[2018-12-01] MEDS: INSULIN LISPRO 100 UNIT/1 ML 3ML VIAL SQ SCH ×4 (07:30→21:00)
[2018-12-01] MEDS: GABAPENTIN 300 MG CAP PO SCH ×3 (08:09→21:00)
[2018-12-01] MEDS: FUROSEMIDE 20 MG TAB PO SCH (08:09)
[2018-12-01] MEDS: PANTOPRAZOLE SOD 40 MG TABEC PO SCH (08:09)
[2018-12-01] MEDS: FLUCONAZOLE 100 MG TAB PO SCH (08:09)
[2018-12-01] MEDS: DOCUSATE SODIUM 100 MG CAP PO SCH ×2 (08:09→16:17)
[2018-12-01] MEDS: ASPIRIN 325 MG TAB PO SCH (08:09)
[2018-12-01] MEDS: DULOXETINE HCL 30 MG DELAYED RELEASE PO SCH ×2 (08:09→16:59)
[2018-12-01] MEDS: BALSAM PERU/CASTOR OIL 5 GM OINT...G. TP SCH (08:34)
[2018-12-01] MEDS: HYDROCODONE/APAP 7.5MG-325MG 1 EA TAB PO PRN (08:34)
[2018-12-01] MEDS: HEPARIN SOD (PORCINE) 5,000 UNIT/ML VIAL SC SCH ×2 (08:37→21:00)
--- NOTE | 2018-12-01 13:30 | NUR ---
REPORT GIVEN TO ONCOMING NURSE. VISITOR AT BEDSIDE, CALL CRISTINA WITHIN REACH.
--- NOTE | 2018-12-01 14:14 | NUR ---
CALL TO ANDREWS Narayan [facility] X2. NO ANSWER; LEFT VM. CALL TO [facility] @ [phone]. SPOKE W BARRY. STATES ANDREWS IS OUT TODAY. SHE ASKED FOR A CALL BACK # FOR CM AND WILL CALL BACK W UPDATE.
--- NOTE | 2018-12-01 16:54 | NUR ---
Nutrition Screen Note RD Recommendation for Physician: - Rec adding ADA to GI soft diet as medically appropriate Plan of Care: RD following, monitoring for tolerance and adequacy Nutrition reason for involvement: Follow up Primary Diagnose(s): sigmoid colon stricture PMH: CKD III, CVA w aphasia, DM, HTN, hemachromatosis w cirrhosis, chronic pain, neuropathy, GERD Ht: 66in Wt: 238.13lb; 227.04lb BMI: 38.4kg/m2 IBW: 130lb RD Assessment: (12/01) Pt was discussed during AM rounds. Pending placement. Limited hx obtained from pt due to aphasia. Per RN Kathleen, pt was eating very well with 75-100% PO intake. Current diet texture was well tolerated. No GI complains noted. Family was bringing foods and sweets from home. BG 170 - 250 on insulin. Will continue to monitor and follow. (11/24) Chart reviewed. Labs and meds reviewed. 43yo F, who was admitted for abdominal pain. Pt underwent resection of the sigmoid colon anastomosis for stricture and abdominal pain on 11/18. Unable to obtain hx from pt due to aphasia. AIR CHIPPER following. Per SELVIN Sanchez, pt was able to tolerate milk and juice this AM. No GI complains noted. Diet has been advanced to GI soft. Will continue to monitor and follow. Please consult if pt has poor appetite while on regular diet. Current Diet: GI soft diet Malnutrition Evaluation (11/24/2018) The patient does not meet criteria for a specified degree of malnutrition at this time. Will re-evaluate at follow-up as appropriate. Diet Education Needs Assessment: Diet education not indicated. Nutrition Care Level: low Signed: Mia Belcher MS, RD, LD
--- NOTE | 2018-12-01 16:55 | NUR ---
Informed dr mcmillan, patient with elevated temperature and low grade fever through out shift, patient c/o nausea but no vomiting observed, orders received and entered, patients brother at bedside, updated on new orders
[2018-12-01] MEDS: ONDANSETRON HCL INJ 2MG/ML 2ML 2 MG/ML VIAL IV PRN ×2 (16:59→23:17)
[2018-12-01] MEDS: ACETAMINOPHEN 325 MG TAB PO PRN (17:16)
[2018-12-01 18:10] LABS: BASOPHILS # (AUTO) 0.1 (0.0-0.1); BASOPHILS % 0.9 % (0.0-1.0); EOSINOPHILS # (AUTO) 0.6 (0.0-0.4); EOSINOPHILS % 4.6 % (0.0-6.0); HEMATOCRIT 34.9 % (34.2-44.1); HEMOGLOBIN 10.9 g/dL (12.0-16.0); LYMPHOCYTES # (AUTO) 2.1 (1.0-3.2); LYMPHOCYTES % 16.2 % (18.0-39.1); MEAN CORPUSCULAR HEMOGLOBIN 28.7 pg (28-32); MEAN CORPUSCULAR HGB CONC 31.2 g/dL (31-35); MEAN CORPUSCULAR VOLUME 91.8 fL (81-99); MONOCYTES # (AUTO) 1.7 (0.2-0.8); MONOCYTES % 13.2 % (4.4-11.3); NEUTROPHILS % 63.1 % (38.7-80.0); PLATELET COUNT 587 x10e3/uL (140-360); RED CELL DISTRIBUTION WIDTH 13.8 % (11.7-14.4)
--- NOTE | 2018-12-01 18:22 | NUR ---
informed dr schroeder, patient nauseated and c/o abdominal pain and that medications given were not effective, orders received and entered, sister at bedside updated on new orders, verbalized understanding
[2018-12-01 18:24] LABS: ANION GAP 15.2 mmol/L (8-16); CALCIUM 9.1 mg/dL (8.4-10.2); CREATININE, SERUM 1.54 mg/dL (0.57-1.11)
[2018-12-01 18:27] LABS: POTASSIUM 5.2 mmol/L (3.5-5.1)
[2018-12-01] MEDS ORDERED: PROMETHAZINE 12.5MG/ NACL 0.9% 50 ML IV PRN (18:30)
[2018-12-01] MEDS ORDERED: PROMETHAZINE 12.5MG/ NACL 0.9% 12.5 MG/50 ML BAG IV PRN (18:30)
[2018-12-01] MEDS ORDERED: DIATRIZOATE MEGL/DIATRIZOA SOD 30 ML BTL PO ONE (18:32)
[2018-12-01] MEDS: HYDROMORPHONE 2MG/ML 2 MG/ML ML IV PRN ×2 (18:39→23:17)
--- NOTE | 2018-12-01 19:00 | NUR ---
patient received awake, alert, lying quietly in bed. vss. pain minimal at this time per patient. 02/2l/nc in use. respirations even and unlabored. patient to have ct abd and pelvis tonight. patient/family aware of this. pm assessment complete. many family members noted at the bedside. patient/family instructed to call for assistance when needed.
--- NOTE | 2018-12-01 20:47 | NUR ---
patient out of room for ct scan abd/pelvis via bed at this time. Sujey MONTALVO (med surg chrg) with patient.
[2018-12-01] MEDS: INSULIN GLARGINE 100 UNITS/ML VIAL SQ SCH (21:00)
[2018-12-01] MEDS: ATORVASTATIN 10 MG TAB PO SCH (21:00)
[2018-12-01] MEDS: AMITRIPTYLINE HCL 25 MG TAB PO SCH (21:00)
--- NOTE | 2018-12-01 21:15 | NUR ---
patient returned from ct scan at this time. patients pm medications given. patient medicated with Tylenol 650 mg po for temp 101.2. no c/o pain noted at this time. family remains at the bedside.
--- NOTE | 2018-12-01 21:17 | NUR ---
blood sugar 277. humalog 8 units and lantus 20 units sq given at this time. patient eating apple sauce at this time without difficulty.
--- NOTE | 2018-12-01 21:40 | Diagnostic Imaging Report ---
EXAMINATION: CT of the abdomen and pelvis without contrast. TECHNIQUE: Helical CT images of the abdomen and pelvis were performed from the lung bases to the lesser trochanters. No intravenous contrast was given. Positive enteric contrast. Coronal and sagittal reformatted images were obtained.Dose modulation, iterative reconstruction, and/or weight based adjustment of the mA/kV was utilized to reduce the radiation dose to as low as reasonably achievable. COMPARISON: None. CLINICAL HISTORY:Colonic structure DISCUSSION: ABSENCE OF INTRAVENOUS CONTRAST DECREASES SENSITIVITY FOR DETECTION OF FOCAL LESIONS AND VASCULAR PATHOLOGY. ABDOMEN/PELVIS: LOWER THORAX: Bilateral lower lung atelectasis. HEPATOBILIARY:No focal hepatic lesions. No biliary ductal dilation. The gallbladder is normal. SPLEEN: No splenomegaly. PANCREAS: No focal masses or ductal dilatation. ADRENALS: No adrenal nodules. KIDNEYS/URETERS: Left ureteral stent proximal portion in the renal pelvis and the distal overlying the left distal ureter. PELVIC ORGANS/BLADDER: The bladder is decompressed with a Tillman catheter. PERITONEUM/RETROPERITONEUM: Surgical drain extends over the decompressed bladder with the tip in the left lower pelvis. LYMPH NODES: No intra-abdominal,retroperitoneal, pelvic or inguinal lymphadenopathy. VESSELS: The celiac trunk,superior and inferior mesenteric and bilateral renal arteries are patent The portal, superior mesenteric and splenic veins are patent. GI TRACT: Enteric contrast is within the small bowel and colon. Area of anastomosis of the lower sigmoid colon. Wall thickening involving the sigmoid colon exam axial image 75. Narrowing of the distal sigmoid colon for example axial image 85 adjacent to the anastomosis. Air and contrast left lower pelvis extending 15 cm in axial dimension Small foci of additional areas of pneumoperitoneum. BONES AND SOFT TISSUES: No bony destructive lesions. No soft tissue abnormalities. IMPRESSION: Distal sigmoid narrowing/stricture. Distal sigmoid perforation with large 15 cm collection containing contrast and air. A drain is adjacent to the collection. Signed by: Dr. Vladislav Shah M.D. on 12/01/2018 9:37 PM
--- NOTE | 2018-12-01 22:45 | NUR ---
ct abd/pelvis results called to at this time. new order received for IR Consult for percutaneous drainage of fluid collection. no further orders noted.
--- NOTE | 2018-12-01 23:17 | NUR ---
patient medicated with dilaudid 2 mg and zofran 4 mg ivp for c/o abd pain 04/11 at this time.
[2018-12-02] VITALS (7 sets, daily range): BP systolic 102–121; BP diastolic 62–83
--- NOTE | 2018-12-02 03:00 | NUR ---
complete bed bath/skin care provided at this time.
[2018-12-02] MEDS: HYDROMORPHONE 2MG/ML 2 MG/ML ML IV PRN ×5 (04:15→20:19)
[2018-12-02] MEDS: ONDANSETRON HCL INJ 2MG/ML 2ML 2 MG/ML VIAL IV PRN ×3 (04:15→13:00)
--- NOTE | 2018-12-02 04:15 | NUR ---
patient medicated with dilaudid 2 mg and zofran 4 mg ivp for c/o abd pain 03/11 at this time.
--- NOTE | 2018-12-02 05:00 | NUR ---
all gretel to lower midline abd incision removed per orders. incision left open to air. no drainage noted. no c/o pain at this time.
[2018-12-02 05:26] LABS: BASOPHILS # (AUTO) 0.1 (0.0-0.1); EOSINOPHILS # (AUTO) 0.6 (0.0-0.4); EOSINOPHILS % 5.6 % (0.0-6.0); HEMOGLOBIN 10.3 g/dL (12.0-16.0); LYMPHOCYTES # (AUTO) 1.9 (1.0-3.2); LYMPHOCYTES % 17.9 % (18.0-39.1); MEAN CORPUSCULAR HEMOGLOBIN 28.7 pg (28-32); MEAN CORPUSCULAR HGB CONC 31.2 g/dL (31-35); MEAN CORPUSCULAR VOLUME 91.9 fL (81-99); MONOCYTES # (AUTO) 1.6 (0.2-0.8); MONOCYTES % 15.2 % (4.4-11.3); NEUTROPHILS # (AUTO) 6.2 (2.1-6.9); NEUTROPHILS % 58.4 % (38.7-80.0); PLATELET COUNT 581 x10e3/uL (140-360); RED BLOOD COUNT 3.59 x10e6/uL (3.6-5.1); RED CELL DISTRIBUTION WIDTH 13.8 % (11.7-14.4)
[2018-12-02 05:44] LABS: ANION GAP 10.2 mmol/L (8-16); CALCIUM 9.1 mg/dL (8.4-10.2); CREATININE, SERUM 1.44 mg/dL (0.57-1.11); MAGNESIUM 1.8 MG/DL (1.3-2.1); POTASSIUM 4.2 mmol/L (3.5-5.1)
--- NOTE | 2018-12-02 06:00 | NUR ---
consent obtained for percutaneous drainage of fluid collection by patient and placed on chart at this time.
[2018-12-02] MEDS: INSULIN LISPRO 100 UNIT/1 ML 3ML VIAL SQ SCH ×4 (07:30→20:55)
[2018-12-02] MEDS ORDERED: METRONIDAZOLE 500MG/NS 100ML 100 ML IV SCH (08:30)
[2018-12-02] MEDS: BALSAM PERU/CASTOR OIL 5 GM OINT...G. TP SCH (08:35)
[2018-12-02] MEDS: DULOXETINE HCL 30 MG DELAYED RELEASE PO SCH ×2 (08:35→17:38)
[2018-12-02] MEDS: GABAPENTIN 300 MG CAP PO SCH ×3 (08:35→20:47)
[2018-12-02] MEDS: ASPIRIN 325 MG TAB PO SCH (08:35)
[2018-12-02] MEDS: DOCUSATE SODIUM 100 MG CAP PO SCH ×2 (08:35→17:38)
[2018-12-02] MEDS: FUROSEMIDE 20 MG TAB PO SCH (08:35)
[2018-12-02] MEDS: HEPARIN SOD (PORCINE) 5,000 UNIT/ML VIAL SC SCH ×2 (08:35→22:33)
--- NOTE | 2018-12-02 08:36 | NUR ---
PER OR, PT TO GO DOWN FOR PROCEDURE SOON, KEEP NPO. MORNING PO MEDS HELD WITH HEPARIN.
[2018-12-02] MEDS: PIPER-TAZ 3.375 GM 50 ML IV SCH ×3 (08:40→20:19)
[2018-12-02] MEDS: PANTOPRAZOLE 40 MG 10ML VIAL IV SCH (08:40)
[2018-12-02 08:46] LABS: EOSINOPHILS % (MANUAL) 4 % (0-7); LYMPHOCYTES % (MANUAL) 25 % (19-48); MONOCYTES % (MANUAL) 12 % (3.4-9.0); NEUTROPHILS % (MANUAL) 59 % (40-74)
[2018-12-02 08:53] LABS: HYPOCHROMASIA SLIGHT; PLATELET ESTIMATE ADEQUATE; PLATELET MORPHOLOGY COMMENT NORMAL; RBC MORPHOLOGY COMMENT NORMAL
--- NOTE | 2018-12-02 10:25 | NUR ---
PT OFF UNIT FOR PROCEDURE. VS STABLE
[2018-12-02] MEDS ORDERED: FENTANYL CITRATE/PF 100MCG/2 ML INJ ONE (11:02)
[2018-12-02] MEDS ORDERED: MIDAZOLAM HCL 2 MG/2 ML VIAL ONE (11:02)
--- NOTE | 2018-12-02 12:42 | NUR ---
pt returned from procedure, vs stable. new drain to gravity LLQ.
--- NOTE | 2018-12-02 16:14 | Diagnostic Imaging Report ---
Date and Time: 12/02/2018 Procedure: CT-guided drainage of a left pelvic abscess rough and trueing machine operator: Dr. Rocha Pre-operative diagnosis: Left pelvic fluid and gas collection Post-operative diagnosis: Left pelvic abscess, suspected contained sigmoid colon perforation Conscious Sedation: Versed 1 mg and Fentanyl 75 mcg. The patient's heart rate and pulse oximetry were continuously monitored by the interventional radiology nurse. Blood pressure was monitored at 5 minute intervals. Total monitored sedation time: 60 minutes Additional Medications: Lidocaine 1% for local anesthesia Fluoroscopy time: 0 Dose-area Product: 0 mGycm2. Frontal Air Kerma: 0 Contrast used: None Estimated blood loss: Less than 10 cc Blood products administered: None Complications: No immediate Specimens: 60 cc feculent, debris-containing fluid Implants: 12 Spanish locking loop drainage catheter Condition at completion: Stable Disposition: Return to IMU DISCUSSION: Informed consent was obtained and documented in the medical record after discussion of risks and benefits. Patient was placed in the supine position on the CT couch. A marker grid was placed over the left lower quadrant of the abdomen. Limited CT of the low abdomen and pelvis confirmed a suitable percutaneous approach to the large left pelvic fluid and gas collection. The overlying skin was marked, then prepped and draped in the standard sterile fashion. 1% lidocaine was infiltrated into the skin and subcutaneous tissues for local anesthesia. Then under intermittent CT guidance, an 18-gauge needle was advanced into the anterior aspect of the collection. A 0.0 3 5-in. Amplatz Super Stiff wire was then advanced through the needle and coiled within the posterior/deep pelvic aspect of the collection. The needle was removed over the wire and the tract was dilated. Then a 12 Spanish locking loop drainage catheter was advanced over the wire, which was then removed. The locking loop of the drainage catheter was positioned in the deep/posterior portion of the fluid collection. A total of 60 cc of thick, feculent, debris-containing fluid was obtained. A specimen was submitted for Gram stain, aerobic and anaerobic cultures. The catheter was flushed with sterile saline, secured to the skin with monofilament nylon suture, and connected to gravity drainage. A sterile dressing was applied. The patient tolerated the procedure well without immediate complication. FINDINGS: Large left pelvic abscess. IMPRESSION: Successful CT-guided percutaneous drainage of a pelvic abscess, without immediate complication. The drainage catheter should be irrigated with sterile saline every 4 hours given debris-laden nature of the fluid. Orders to this effect were placed in the patient's chart prior to her leaving the radiology department. Signed by: Dr. Ej Rocha M.D. on 12/02/2018 4:11 PM
--- NOTE | 2018-12-02 16:41 | NUR ---
ORDER RECEIVED FOR LTAC EVAL. MET W THE PT, HER MOTHER AND SISTER AT THE BEDSIDE. INFORMED OF CHOICES OF LTAC. MOM WAS FAMILIAR. STATES SHE WAS OK W [facility]. CHOICE LETTER WAS SIGNED AND COPY TO PT AND COPY TO CHART. MOT INITIATED AND SIGNED BY PT'S MOTHER. CONTACTED [facility] FOR EVAL.
--- NOTE | 2018-12-02 18:53 | Progress Note ---
DATE: 12/02/2018 SUBJECTIVE: Yesterday, I was contacted in the evening as the patient was running fever, asked to do a CAT scan of the pelvis and blood cultures. Start the patient on Zosyn. CAT scan was done and showed there is an abscess, so the patient underwent fluid drainage. The patient currently lying in bed comfortably. The patient showed a distal sigmoid perforation with largest 15 cm containing contrast and air. The patient is currently lying in bed comfortably. PHYSICAL EXAMINATION: GENERAL: She is currently alert, oriented, does not seem to be in acute distress. VITAL SIGNS: Stable, currently afebrile. HEENT: She is not icteric. NECK: Supple. CHEST: Clear. ABDOMEN: Soft. Bowel sounds present. No tenderness. EXTREMITIES: No edema. IMPRESSION: 1. Intraabdominal abscess drained. Continue Zosyn. Concerned about fistula. 2. Distal segment narrowing, stricture, distal sigmoid perforation. 3. Chronic kidney disease stage 3. 4. 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 5. History of hemochromatosis. Continue with Zosyn. We will follow. MD ARMIN Mustafa/JOHNATHAN /[id number]
--- NOTE | 2018-12-02 19:18 | NUR ---
pt stable, report given to evening nurse
[2018-12-02] MEDS: ACETAMINOPHEN 325 MG TAB PO PRN (20:20)
[2018-12-02] MEDS: AMITRIPTYLINE HCL 25 MG TAB PO SCH (20:46)
[2018-12-02] MEDS: ATORVASTATIN 10 MG TAB PO SCH (20:47)
[2018-12-02] MEDS: INSULIN GLARGINE 100 UNITS/ML VIAL SQ SCH (20:55)
--- NOTE | 2018-12-02 21:13 | NUR ---
Spoke to Dr. Boggs about ptt levels and due heparin, ordered to give due dose now and check coagulations in the morning of 12/03/18.
--- NOTE | 2018-12-02 22:47 | NUR ---
patient temp. was 101.0 at 2019, tylenol was administered and rechecked at 2119 and was 98.9
[2018-12-03] VITALS (10 sets, daily range): BP systolic 108–128; BP diastolic 67–89
[2018-12-03] MEDS: HYDROMORPHONE 2MG/ML 2 MG/ML ML IV PRN ×7 (01:50→23:26)
[2018-12-03] MEDS: PIPER-TAZ 3.375 GM 50 ML IV SCH ×4 (02:57→21:54)
[2018-12-03] MEDS: HYDROCODONE/APAP 7.5MG-325MG 1 EA TAB PO PRN (03:15)
--- NOTE | 2018-12-03 04:21 | NUR ---
Received patient in bed, patient is alert, but speech is not clear, . patient is currently on room air. Patient has a gustavo drain and another drain on the right stomach for drains safety and fall precautions maintained as per hospital protocol: bed in lowest position and locked, needed items beside patient, call carl close to patient and patient instructed to use to call nurses for any assistance needed, patient verbalized understanding. 2000:family at bed side, patient rounded and stable, 2200: patient rounded and stable 0000: patient rounded and stable, 0200: patient rounded.
--- NOTE | 2018-12-03 05:00 | NUR ---
Irrigations done as ordered.
[2018-12-03 05:44] LABS: CALCIUM 8.8 mg/dL (8.4-10.2); CREATININE, SERUM 1.46 mg/dL (0.57-1.11)
--- NOTE | 2018-12-03 07:01 | NUR ---
Patient endorsed to next shift for continuity of care.
--- NOTE | 2018-12-03 08:23 | NUR ---
Dr. Arely talley received orders to stop fluid restriction under his name due to him not ordering fluid restriction.
[2018-12-03] MEDS: PANTOPRAZOLE 40 MG 10ML VIAL IV SCH (08:55)
[2018-12-03] MEDS: INSULIN LISPRO 100 UNIT/1 ML 3ML VIAL SQ SCH ×4 (08:55→21:58)
[2018-12-03] MEDS: DOCUSATE SODIUM 100 MG CAP PO SCH ×3 (08:56→17:00)
[2018-12-03] MEDS: FUROSEMIDE 20 MG TAB PO SCH (08:56)
[2018-12-03] MEDS: ASPIRIN 325 MG TAB PO SCH (08:56)
[2018-12-03] MEDS: GABAPENTIN 300 MG CAP PO SCH ×3 (08:56→21:54)
[2018-12-03] MEDS: DULOXETINE HCL 30 MG DELAYED RELEASE PO SCH ×2 (08:56→19:14)
[2018-12-03] MEDS: BALSAM PERU/CASTOR OIL 5 GM OINT...G. TP SCH (08:56)
[2018-12-03] MEDS: HEPARIN SOD (PORCINE) 5,000 UNIT/ML VIAL SC SCH (08:57)
[2018-12-03] MEDS: ACETAMINOPHEN 325 MG TAB PO PRN (08:59)
--- NOTE | 2018-12-03 11:24 | NUR ---
ST NOTE: Pt refused speech-language therapy for speech motor and oral motor strengthening today, she was labile and fatigued. Will continue to follow pt status. In conversation with mother on 12-02-18 she said the pt's speech-language was at baseline and that she normally communicates functionally by texting.
[2018-12-03] MEDS: HOME MEDICATION--PATIENTS OWN TOP PRN (12:05)
--- NOTE | 2018-12-03 13:37 | NUR ---
DISCUSSED PT IN ROUNDS TODAY. PT FOR ILEOSTOMY TOMORROW. LTAC EVAL STILL PENDING. SPOKE [facility] REUBEN NICKEL PLATER; RONI @ [phone].
--- NOTE | 2018-12-03 20:04 | NUR ---
Received patient, patient in bed, patient fairly stable, patient received pain meds. patient is alert and oriented x3. family at bed side, patient has a gustavo and a drain, site inspected and clean, safety and fall precautions maintained as per hospital protocol: bed in lowest position and locked needed items beside bed, patient is currently stable will continue to monitor
[2018-12-03] MEDS ORDERED: HEPARIN SOD (PORCINE) 5,000 UNIT/ML VIAL SC SCH (21:00)
[2018-12-03 21:18] LABS: INR 1.22
[2018-12-03] MEDS: AMITRIPTYLINE HCL 25 MG TAB PO SCH (21:54)
[2018-12-03] MEDS: ATORVASTATIN 10 MG TAB PO SCH (21:54)
[2018-12-03] MEDS: INSULIN GLARGINE 100 UNITS/ML VIAL SQ SCH (22:02)
--- NOTE | 2018-12-04 | NUR ---
Irrigation of drainage bag done as ordered. q4hrs
[2018-12-04] MEDS: PIPER-TAZ 3.375 GM 50 ML IV SCH ×4 (01:59→20:32)
[2018-12-04] MEDS: ONDANSETRON HCL INJ 2MG/ML 2ML 2 MG/ML VIAL IV PRN (02:00)
[2018-12-04] MEDS: HYDROMORPHONE 2MG/ML 2 MG/ML ML IV PRN ×6 (02:00→21:24)
[2018-12-04 05:59] LABS: ANION GAP 11.8 mmol/L (8-16); CALCIUM 8.8 mg/dL (8.4-10.2); CREATININE, SERUM 1.35 mg/dL (0.57-1.11); POTASSIUM 3.8 mmol/L (3.5-5.1)
--- NOTE | 2018-12-04 06:56 | NUR ---
patient endorsed to next shift for continuity of care.
[2018-12-04 07:00] VITALS: BP 124/65
[2018-12-04] MEDS: INSULIN LISPRO 100 UNIT/1 ML 3ML VIAL SQ SCH ×4 (07:30→21:24)
[2018-12-04 09:00] VITALS: BP 124/65
[2018-12-04] MEDS: FUROSEMIDE 20 MG TAB PO SCH (09:00)
[2018-12-04] MEDS ORDERED: HEPARIN SOD (PORCINE) 5,000 UNIT/ML VIAL SC SCH (09:00)
[2018-12-04] MEDS: GABAPENTIN 300 MG CAP PO SCH ×3 (09:00→20:32)
[2018-12-04] MEDS: DOCUSATE SODIUM 100 MG CAP PO SCH ×2 (09:00→17:00)
[2018-12-04] MEDS: ASPIRIN 325 MG TAB PO SCH (09:00)
[2018-12-04] MEDS: DULOXETINE HCL 30 MG DELAYED RELEASE PO SCH ×2 (09:00→18:29)
[2018-12-04] MEDS: PANTOPRAZOLE 40 MG 10ML VIAL IV SCH (09:48)
[2018-12-04] MEDS: BALSAM PERU/CASTOR OIL 5 GM OINT...G. TP SCH (09:49)
--- NOTE | 2018-12-04 11:48 | NUR ---
ST Therapy- Spoke with SELVIN Landry. Pt not appropriate for therapy today, in pain with peritonitis and abscess. Will continue to follow pt status, as stated in note from 12/03/18 pt can functionally communicate with texting.
[2018-12-04] MEDS: VANCOMYCIN 1GM/NS 250 ML 250 ML IV SCH (12:00)
[2018-12-04 12:30] VITALS: BP 94/68
[2018-12-04 12:30] LABS: BASOPHILS # (AUTO) 0.1 (0.0-0.1); BASOPHILS % 0.9 % (0.0-1.0); EOSINOPHILS # (AUTO) 0.4 (0.0-0.4); EOSINOPHILS % 4.1 % (0.0-6.0); HEMATOCRIT 29.7 % (34.2-44.1); HEMOGLOBIN 9.3 g/dL (12.0-16.0); LYMPHOCYTES # (AUTO) 1.9 (1.0-3.2); LYMPHOCYTES % 17.4 % (18.0-39.1); MEAN CORPUSCULAR HEMOGLOBIN 28.6 pg (28-32); MEAN CORPUSCULAR HGB CONC 31.3 g/dL (31-35); MEAN CORPUSCULAR VOLUME 91.4 fL (81-99); MONOCYTES # (AUTO) 1.7 (0.2-0.8); MONOCYTES % 15.4 % (4.4-11.3); NEUTROPHILS # (AUTO) 6.5 (2.1-6.9); NEUTROPHILS % 60.5 % (38.7-80.0); PLATELET COUNT 429 x10e3/uL (140-360); RED BLOOD COUNT 3.25 x10e6/uL (3.6-5.1); RED CELL DISTRIBUTION WIDTH 13.7 % (11.7-14.4)
[2018-12-04 13:10] LABS: BASOPHILS # (AUTO) 0.1 (0.0-0.1); BASOPHILS % 0.9 % (0.0-1.0); EOSINOPHILS # (AUTO) 0.6 (0.0-0.4); EOSINOPHILS % 4.7 % (0.0-6.0); HEMATOCRIT 30.4 % (34.2-44.1); HEMOGLOBIN 9.3 g/dL (12.0-16.0); LYMPHOCYTES # (AUTO) 2.6 (1.0-3.2); LYMPHOCYTES % 20.4 % (18.0-39.1); MEAN CORPUSCULAR HEMOGLOBIN 28.7 pg (28-32); MEAN CORPUSCULAR HGB CONC 30.6 g/dL (31-35); MEAN CORPUSCULAR VOLUME 93.8 fL (81-99); MONOCYTES # (AUTO) 2.1 (0.2-0.8); MONOCYTES % 16.4 % (4.4-11.3); NEUTROPHILS # (AUTO) 7.2 (2.1-6.9); NEUTROPHILS % 56.2 % (38.7-80.0); PLATELET COUNT 443 x10e3/uL (140-360); RED BLOOD COUNT 3.24 x10e6/uL (3.6-5.1); RED CELL DISTRIBUTION WIDTH 13.8 % (11.7-14.4)
[2018-12-04] MEDS ORDERED: VANCOMYCIN 1GM/NS 250 ML 250 ML ONE (13:25)
[2018-12-04 13:58] LABS: BAND NEUTROPHILS % (MANUAL) 2 %; EOSINOPHILS % (MANUAL) 5 % (0-7); HYPOCHROMASIA SLIGHT; LYMPHOCYTES % (MANUAL) 21 % (19-48); MONOCYTES % (MANUAL) 9 % (3.4-9.0); NEUTROPHILS % (MANUAL) 63 % (40-74); RBC MORPHOLOGY COMMENT NORMAL
[2018-12-04 13:59] LABS: PLATELET ESTIMATE SLIGHTLY INCREASED; PLATELET MORPHOLOGY COMMENT NORMAL
[2018-12-04] MEDS ORDERED: HYDROMORPHONE 2MG/ML 2 MG/ML ML ONE (14:31)
[2018-12-04] MEDS ORDERED: SODIUM CHLORIDE 0.9% 1000ML 1,000 ML ONE (14:58)
--- NOTE | 2018-12-04 15:15 | NUR ---
Patient arrived from PACU she is awake and alert and oriented x3, no s/s of distress, vital signs stable, assessed SON drain to left side placed today and SON drain to right sided abdominal quadrant draining milky grayish drainage. Transverse ileostomy to right upper quadrant, stool in ileostomy bag, stoma flat, pink moist covered with brown stool. Family at bedside with patient belongings and call light within reach will continue to monitor,
[2018-12-04 15:20] VITALS: BP 126/82
--- NOTE | 2018-12-04 15:34 | Operative Report ---
DATE OF PROCEDURE: 12/04/2018 SURGEON: Ej Mcgee MD PREOPERATIVE DIAGNOSIS: Colon fistula. POSTOPERATIVE DIAGNOSIS: Colon fistula. PROCEDURES: Creation of transverse loop colostomy. STORM DOOR MAKER: None. ANESTHESIA: General. INDICATIONS AND FINDINGS: The patient is a 43-year-old female, who had a colon rectosigmoid colon resection done about two weeks ago. 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 Surgery, there was no abnormalities in the area of the colostomy creation. TECHNIQUE: After adequate general anesthesia, the patient in supine position, the abdomen was prepped and draped in a sterile fashion with Betadine solution. Transverse incision made in the right upper quadrant, carried down through subcutaneous tissue. The fascia identified and this was opened. Muscle fiber was split and posterior fascia opened into the peritoneal cavity. Immediately seen was some omentum and this was followed to the transverse colon. The colon was mobilized by dividing some peritoneal attachments as well as freeing the omentum from the transverse colon and the colon was delivered up into the wound, easily reached to the skin level and was brought above the fascia, then the colon was opened to create a transverse loop colostomy. The edge of the colon was sutured to the open colon was sutured to the skin with interrupted sutures of 3-0 Vicryl. The entire colon was noted to be above the fascia, so it will be functionally diverting. Inside of the colon was irrigated with saline, particularly distal colon. There was not a large amount of stool in the colon. Colostomy appliance was then applied. The patient tolerated procedure well. Estimated blood loss was 10 mL. There were no complications. All counts were correct. The patient was taken to the recovery room in satisfactory condition. Ej Mcgee MD DWG/MODL /[id number]
[2018-12-04] MEDS ORDERED: HYDROMORPHONE 1MG/1ML INJ IV PRN (16:30)
[2018-12-04] MEDS ORDERED: FENTANYL CITRATE/PF 100MCG/2 ML INJ ONE (17:55)
[2018-12-04 18:00] VITALS: BP 129/77
[2018-12-04] MEDS ORDERED: NEOSTIGMINE 5 MG/5ML SYR ONE (19:41)
[2018-12-04] MEDS ORDERED: ONDANSETRON HCL INJ 2MG/ML 2ML 2 MG/ML VIAL ONE (19:41)
[2018-12-04] MEDS ORDERED: GLYCOPYRROLATE INJ 1MG/ 5 ML SYR ONE (19:41)
[2018-12-04] MEDS ORDERED: LIDOCAINE HCL 2% LOCAL INJ 5 ML SDV VIAL INJ ONE (19:41)
[2018-12-04] MEDS ORDERED: PROPOFOL IV EMULSION 10 MG/ML 20 ML VIAL ONE (19:41)
[2018-12-04] MEDS ORDERED: DEXAMETHASONE SOD PHOS INJ 4 MG/ML VIAL ONE (19:41)
[2018-12-04] MEDS ORDERED: ROCURONIUM BROMIDE 10 MG/ML 5ML VIAL ONE (19:41)
[2018-12-04] MEDS ORDERED: SEVOFLURANE INHAL SOLN 250 ML PEN BTL ONE (19:41)
[2018-12-04] MEDS: AMITRIPTYLINE HCL 25 MG TAB PO SCH (20:32)
[2018-12-04] MEDS: ATORVASTATIN 10 MG TAB PO SCH (20:32)
[2018-12-04] MEDS: ACETAMINOPHEN 325 MG TAB PO PRN (20:33)
[2018-12-04] MEDS: HEPARIN SOD (PORCINE) 5,000 UNIT/ML VIAL SC SCH (20:34)
[2018-12-04] MEDS: INSULIN GLARGINE 100 UNITS/ML VIAL SQ SCH (21:25)
[2018-12-05] VITALS: BP 111/72
[2018-12-05] MEDS: PIPER-TAZ 3.375 GM 50 ML IV SCH ×3 (01:48→15:40)
[2018-12-05] MEDS: HYDROMORPHONE 2MG/ML 2 MG/ML ML IV PRN ×4 (03:30→14:40)
[2018-12-05 04:00] VITALS: BP 95/74
--- NOTE | 2018-12-05 04:38 | NUR ---
ileostomy bag was leaking, changed it to the new one, now is intact, patient refused to be turn and wants to be on her back. PRN pain med given, will continue to monitor.
[2018-12-05 05:37] LABS: BASOPHILS # (AUTO) 0.1 (0.0-0.1); BASOPHILS % 1.2 % (0.0-1.0); EOSINOPHILS # (AUTO) 0.4 (0.0-0.4); EOSINOPHILS % 5.3 % (0.0-6.0); HEMATOCRIT 28.9 % (34.2-44.1); HEMOGLOBIN 8.9 g/dL (12.0-16.0); LYMPHOCYTES # (AUTO) 1.7 (1.0-3.2); MEAN CORPUSCULAR HEMOGLOBIN 28.2 pg (28-32); MEAN CORPUSCULAR HGB CONC 30.8 g/dL (31-35); MEAN CORPUSCULAR VOLUME 91.5 fL (81-99); MONOCYTES # (AUTO) 1.2 (0.2-0.8); MONOCYTES % 14.2 % (4.4-11.3); NEUTROPHILS # (AUTO) 4.8 (2.1-6.9); NEUTROPHILS % 57.7 % (38.7-80.0); PLATELET COUNT 367 x10e3/uL (140-360); RED BLOOD COUNT 3.16 x10e6/uL (3.6-5.1); RED CELL DISTRIBUTION WIDTH 13.7 % (11.7-14.4)
[2018-12-05 06:01] LABS: ALBUMIN 1.6 g/dL (3.5-5.0); ALBUMIN/GLOBULIN RATIO 0.3 (0.8-2.0); ALKALINE PHOSPHATASE 79 IU/L (40-150); ANION GAP 9.8 mmol/L (8-16); BLOOD UREA NITROGEN 6 mg/dL (7-26); BUN/CREATININE RATIO 5 (6-25); CALCIUM 8.3 mg/dL (8.4-10.2); CARBON DIOXIDE 26 mmol/L (22-29); CHLORIDE 100 mmol/L (98-107); CREATININE, SERUM 1.15 mg/dL (0.57-1.11); EST GLOMERULAR FILTRATION RATE 51 ML/MIN (60-); GLUCOSE 153 mg/dL (74-118); POTASSIUM 3.8 mmol/L (3.5-5.1); SODIUM 132 mmol/L (136-145)
[2018-12-05 06:20] LABS: ALANINE AMINOTRANSFERASE < 6 IU/L (0-55)
[2018-12-05 07:30] VITALS: BP 108/61
--- NOTE | 2018-12-05 07:50 | NUR ---
ST NOTE: Spoke with SELVIN Crump. Pt recovering from procedure yesterday and has been medicated for discomfort/pain. Will attempt one more time on 12/08/18. Pt has been non-cooperative with speech language therapy to this point.
[2018-12-05] MEDS: INSULIN LISPRO 100 UNIT/1 ML 3ML VIAL SQ SCH ×3 (08:01→16:31)
[2018-12-05] MEDS: PANTOPRAZOLE 40 MG 10ML VIAL IV SCH (08:39)
[2018-12-05] MEDS: BALSAM PERU/CASTOR OIL 5 GM OINT...G. TP SCH (08:39)
[2018-12-05] MEDS: ASPIRIN 325 MG TAB PO SCH (08:39)
[2018-12-05] MEDS: DULOXETINE HCL 30 MG DELAYED RELEASE PO SCH ×2 (08:39→16:07)
[2018-12-05] MEDS: FUROSEMIDE 20 MG TAB PO SCH (08:39)
[2018-12-05] MEDS: GABAPENTIN 300 MG CAP PO SCH ×2 (08:39→15:40)
[2018-12-05] MEDS: DOCUSATE SODIUM 100 MG CAP PO SCH ×2 (08:39→16:07)
[2018-12-05] MEDS: HEPARIN SOD (PORCINE) 5,000 UNIT/ML VIAL SC SCH (08:55)
[2018-12-05 12:10] VITALS: BP 106/56
[2018-12-05] MEDS ORDERED: FLUCONAZOLE 200 MG/100 ML 100 ML IV SCH (12:15)
[2018-12-05] MEDS: VANCOMYCIN 1GM/NS 250 ML 250 ML IV SCH (12:18)
--- NOTE | 2018-12-05 13:13 | NUR ---
RECEIVED NOTIFICATION FOR [facility] THE APPEAL WAS OVERTURNED AFTER P2P. CALLED TO NOTIFY BEDSIDE NURSE. SPOKE W SELVIN TRACY. STATES THEY WILL CONTACT [facility] FOR TRANSFER ORDERS. CM ALSO NOTIFIED DR. ROLLE PT ACCEPTED AT [facility]. AWAITING CALL BACK.
--- NOTE | 2018-12-05 16:05 | NUR ---
INFORMED DR CESAR PATIENT HAS BED AT [facility], [place] GIVEN TO DISCHARGE PATIENT TO [facility]
[2018-12-05 16:15] VITALS: BP 96/57
--- NOTE | 2018-12-05 16:30 | NUR ---
LONG-TERM ACUTE CARE DISCHARGE INFORMATION PATIENT HAS BEEN ACCEPTED TO: NAME: [facility] ADDRESS: [address], [place] [address] ACCEPTING PIPELINES SUPERINTENDENT: ANNETTE CARDENAS, NAIL SETTER ACCEPTING MD: DR. KATARZYNA ROLLE ROOM: 204 NURSE CALL REPORT TO: [phone] THE FOLLOWING DOCUMENTS MUST ACCOMPANY PATIENT FOR TRANSFER: COPIED CHART: [employer] SE[employer]ATION PLANT MANAGER MOT INFO RECEIVED FROM: [facility] ORDER/RECONCILED MED LIST: SELVIN HENNING [id number] DNR: N/A
--- NOTE | 2018-12-05 16:30 | NUR ---
INFORMED DR ROLLE, RECEIVED OK TO DISCHARGE PATIENT TO [facility] FROM DR CESAR
[2018-12-05] MEDS: HYDROCODONE/APAP 7.5MG-325MG 1 EA TAB PO PRN (17:20)
--- NOTE | 2018-12-17 04:02 | Discharge Summary ---
ADMISSION DIAGNOSIS: Rectosigmoid colon stricture. DISCHARGE DIAGNOSES: Rectosigmoid colon stricture, transection of left ureter, left pelvic abscess. SECONDARY DIAGNOSES: Diabetes, depression, cirrhosis of the liver, gastroparesis, chronic kidney disease, hypertension. HISTORY OF PRESENT ILLNESS: The patient is a 43-year-old female presenting with complaints of constipation, abdominal pain. Workup revealed rectosigmoid colon stricture. HOSPITAL COURSE: The patient was admitted to the hospital, underwent surgery same day as admission. She had rectosigmoid colon resection at that time with repair of left ureter with a stent. Postoperatively, the patient was initially stable. She was monitored in the intensive care unit, seen in consultation by Dr. Palacios and Dr. Bach also been seeing her. She had drainage from the drain left in place, which was found to be urine, but otherwise was stable. Bowel function gradually became normal. She was started on a diet. She was transferred to the intermediate care unit. The drainage from the drain gradually diminished and she became more stable. She developed some fever, however, and was found to have abscess in the pelvis with extravasation of contrast. She underwent percutaneous drainage of this abscess and also transverse colostomy. The patient stabilized after this, was tolerating diet. Colostomy was functioning. Drainage went to nearly zero from both drains that were in place. Wound remained clean. She was transferred to a [facility] on 12/05/2018, where she will be under the care of Dr. Palacios. At time of transfer, she was tolerating diet. The wound was clean. Colostomy was functioning. Discharge medications listed in the chart. She will be followed up at the [facility] by Dr. Palacios and Dr. Mcgee. MD NATALIIA Tavarez/JOHNATHAN /[id number]
== END 2018-12-05 17:35 | DRG 853 ==
LOC: OR 05:00 → PACU V 11:18 → MED/SURG 12:13 → ICU 13:46 → IMCU 11-21 23:15
PROVIDERS: ADMIT Surgery; ATTEND Surgery
PROC: 0TU Urinary System, Supplement (ICD-10-PCS; 2018-11-18)
PROC: 0T770DZ Dilation of Left Ureter with Intraluminal Device, Open Approach (ICD-10-PCS; 2018-11-18)
PROC: 0T9700Z Drainage of Left Ureter with Drainage Device, Open Approach (ICD-10-PCS; 2018-11-18)
PROC: 0DBU0ZZ Excision of Omentum, Open Approach (ICD-10-PCS; 2018-11-18)
PROC: 0DTN4ZZ Resection of Sigmoid Colon, Percutaneous Endoscopic Approach (ICD-10-PCS; principal; 2018-11-18 06:59)
PROC: 0D1N4ZP Bypass Sigmoid Colon to Rectum, Percutaneous Endoscopic Approach (ICD-10-PCS; 2018-11-18 06:59)
PROC: 0TQ70ZZ Repair Left Ureter, Open Approach (ICD-10-PCS; 2018-11-18 06:59)
PROC: 02HV33Z Insertion of Infusion Device into Superior Vena Cava, Percutaneous Approach (ICD-10-PCS; 2018-11-19)
PROC: 30243N1 Transfusion of Nonautologous Red Blood Cells into Central Vein, Percutaneous Approach (ICD-10-PCS; 2018-11-21)
PROC: 0W9G30Z Drainage of Peritoneal Cavity with Drainage Device, Percutaneous Approach (ICD-10-PCS; 2018-12-02)
PROC: 0D1L074 Bypass Transverse Colon to Cutaneous with Autologous Tissue Substitute, Open Approach (ICD-10-PCS; 2018-12-04)
DX: A41.9 Sepsis, unspecified organism (principal); K65.9 Peritonitis, unspecified; K63.1 Perforation of intestine (nontraumatic); N99.71 Accidental puncture and laceration of a genitourinary system organ or structure during a genitourinary system procedure; E87.1 Hypo-osmolality and hyponatremia; N17.9 Acute kidney failure, unspecified; D62 Acute posthemorrhagic anemia; K63.2 Fistula of intestine; I69.351 Hemiplegia and hemiparesis following cerebral infarction affecting right dominant side; B37.89 Other sites of candidiasis; D68.9 Coagulation defect, unspecified; K91.89 Other postprocedural complications and disorders of digestive system; K56.7 Ileus, unspecified; E86.0 Dehydration; I95.81 Postprocedural hypotension; E83.119 Hemochromatosis, unspecified; D63.1 Anemia in chronic kidney disease; I69.320 Aphasia following cerebral infarction; E66.9 Obesity, unspecified; Z68.36 Body mass index [BMI] 36.0-36.9, adult; E78.5 Hyperlipidemia, unspecified; E11.51 Type 2 diabetes mellitus with diabetic peripheral angiopathy without gangrene; E11.42 Type 2 diabetes mellitus with diabetic polyneuropathy; E11.22 Type 2 diabetes mellitus with diabetic chronic kidney disease; I12.9 Hypertensive chronic kidney disease with stage 1 through stage 4 chronic kidney disease, or unspecified chronic kidney disease; N18.3 Chronic kidney disease, stage 3 (moderate); Z79.4 Long term (current) use of insulin; K74.69 Other cirrhosis of liver; I69.322 Dysarthria following cerebral infarction; G89.4 Chronic pain syndrome; G25.81 Restless legs syndrome; B96.89 Other specified bacterial agents as the cause of diseases classified elsewhere; E87.5 Hyperkalemia; B95.2 Enterococcus as the cause of diseases classified elsewhere; B95.7 Other staphylococcus as the cause of diseases classified elsewhere; I25.10 Atherosclerotic heart disease of native coronary artery without angina pectoris
CPT/HCPCS: 36415; 36600; 49406; 70450; 71045; 74018; 74176; 74230; 74470; 76000; 80048; 80053; 80061; 82565; 82805; 82947; 82948; 83036; 83605; 83735; 83935; 84100; 84300; 85007; 85014; 85018; 85025; 85027; 85610; 85730; 86850; 86900; 86920; 87040; 87070; 87071; 87075; 87186; 87205; 88305; 88307; 92523; 93005; 93306; 93880; 96372; 97139; 99152; 99153; C1769; C2617; J0692; J1100; J1450; J1644; J1815; J1940; J1956; J2001; J2250; J2270; J2310; J2405; J2543; J2550; J3370; J3475; J3480; J7030; J7050; J7120; J7121; P9016

== ENCOUNTER 2019-03-19 08:05 | Inpatient (IN) | payer BC ==
[2019-03-18 18:05] LABS: BASOPHILS # (AUTO) 0.1 (0.0-0.1); BASOPHILS % 1.4 % (0.0-1.0); EOSINOPHILS # (AUTO) 0.9 (0.0-0.4); HEMATOCRIT 38.3 % (34.2-44.1); HEMOGLOBIN 11.6 g/dL (12.0-16.0); LYMPHOCYTES # (AUTO) 1.5 (1.0-3.2); LYMPHOCYTES % 15.6 % (18.0-39.1); MEAN CORPUSCULAR HEMOGLOBIN 25.7 pg (28-32); MEAN CORPUSCULAR HGB CONC 30.3 g/dL (31-35); MEAN CORPUSCULAR VOLUME 84.7 fL (81-99); MONOCYTES # (AUTO) 0.9 (0.2-0.8); MONOCYTES % 9.9 % (4.4-11.3); NEUTROPHILS % 63.4 % (38.7-80.0); PLATELET COUNT 309 x10e3/uL (140-360); RED BLOOD COUNT 4.52 x10e6/uL (3.6-5.1); RED CELL DISTRIBUTION WIDTH 16.4 % (11.7-14.4)
[2019-03-18 18:12] LABS: INR 1.01; PROTHROMBIN TIME 13.8 seconds (11.9-14.5)
[2019-03-18 18:13] LABS: PARTIAL THROMBOPLASTIN TIME 33.2 seconds (23.8-35.5)
--- NOTE | 2019-03-18 18:15 | Diagnostic Imaging Report ---
EXAMINATION: CHEST 2 VIEWS INDICATION: Preop. Surgery ^PREOP ^[id number] ^[id number] COMPARISON: November 20, 2018 FINDINGS: TUBES and LINES: Catheter over the left upper posterior abdomen. Lung volumes remain low with slight interval improvement of previously seen bibasilar airspace opacities, likely atelectasis. Likely small left pleural effusion. Stable cardiomediastinal contour with prominence of the pulmonary interstitium likely accentuated by low lung volumes. No acute osseous abnormality. IMPRESSION: Persistent low lung volumes with slight interval improvement of bibasilar airspace opacities, likely atelectasis. Likely small left pleural effusion. Signed by: Dr. Michael Fraser M.D. on 03/18/2019 6:12 PM
[2019-03-18 18:22] LABS: ALBUMIN 2.9 g/dL (3.5-5.0); ALBUMIN/GLOBULIN RATIO 0.6 (0.8-2.0); ANION GAP 14.3 mmol/L (8-16); CALCIUM 8.9 mg/dL (8.4-10.2); CREATININE, SERUM 3.39 mg/dL (0.57-1.11)
[2019-03-18 18:30] LABS: POTASSIUM 6.3 mmol/L (3.5-5.1)
[~2019-03-19] VITALS: Ht 172.7 cm; Wt 120.8 kg
[~2019-03-19 08:05] MED LIST changes: +DURAGESIC1 EAC1 TD; +PERCOCET 10-321 EACH PO; +PROBENECID-COL1 EACH PO; +SEROQUEL25 MG PO
[2019-03-19] MEDS ORDERED: DEXTROSE 50% SYRINGE 50 ML IV PRN (10:30)
[2019-03-19 11:11] VITALS: BP 106/56
--- NOTE | 2019-03-19 11:11 | NUR ---
RECEIVED PT TO FLOOR [id number] (FAMILY IS AT BEDSIDE , SISTER AND MOTHER) PT HAS SLURRED SPEECH, HX OF STROKE X2 (PT BASELINE) PT HAS AN IV TO THE LEFT FA 20 G PATENT AND DRY PT HAS A COLOSTOMY BAG TO THE RLQ DRY AND INTACT (NO BM NOTED ON BAG AT THIS TIME (BAG CHANGED TODAY BY FAM MEMBER) PT HAS A NEPHROSTOMY TO THE LEFT LOWER BACK (CLAMPED NO BAG OUTPUTING ANY URINE (FAMILY STATES IT WAS CLAMPED BY UROLOGY 2 WEEKS AGO) PT HAS A BEATTY CATH DRAINING CLEAR YELLOW URINE (BEATTY CHANGED LAST WEEK BY FAMILY MEMBER SWELLING TO THE RIGHT UPPER NOTED. 1+ PITTING WOUND TO BOTTOM REDNESS NOTED SKIN TEAR NOTED WILL CONTINUE TO MONITOR PT CLOSELY SIDE RAILSX2, BED WHEELS LOCKED, CALL LIGHT IS WITHIN EASY REACH, INSTRUCTED TO CALL FOR ASSISTANCE IF NEEDED
[2019-03-19] MEDS: INSULIN LISPRO 100 UNIT/1 ML 3ML VIAL SQ SCH ×3 (11:30→21:44)
[2019-03-19] MEDS: SODIUM CHLORIDE 0.9% 1000ML 1,000 ML IV SCH (11:58)
[2019-03-19] MEDS ORDERED: FUROSEMIDE INJ 10 MG/ML 4 ML VIAL IV ONE (12:00)
[2019-03-19] MEDS ORDERED: FENTANYL 50 MCG/HR PATCH TOP SCH (12:00)
[2019-03-19] MEDS ORDERED: SOD POLYSTYRENE SULFONATE SUSP 15 GM/60 ML BTL PO ONE (12:00)
[2019-03-19 12:40] VITALS: BP 106/56
[2019-03-19] MEDS: GABAPENTIN 300 MG CAP PO SCH ×2 (15:35→21:39)
[2019-03-19 16:09] VITALS: BP 119/66
[2019-03-19 16:26] LABS: ANION GAP 12.8 mmol/L (8-16); CALCIUM 8.8 mg/dL (8.4-10.2); CREATININE, SERUM 2.66 mg/dL (0.57-1.11); POTASSIUM 5.8 mmol/L (3.5-5.1)
--- NOTE | 2019-03-19 16:52 | Diagnostic Imaging Report ---
EXAM: Renal Ultrasound INDICATION: ^RENAL INSUFFICIENCY COMPARISON: CT abdomen pelvis of 12/01/2018 TECHNIQUE: Transverse and longitudinal images of the kidneys and bladder were obtained. FINDINGS: Right Kidney: Length: 8.2 cm Appearance: Normal echogenicity. Collecting system: No hydronephrosis Stones: None Cyst/Mass: None Left Kidney: Left nephroureteral stent present. Length: 11.2 cm Appearance: Normal echogenicity. Collecting system: No hydronephrosis Stones: None Cyst/Mass: None Bladder: Tillman catheter in the decompressed bladder. IMPRESSION: No hydronephrosis or definite renal calculi. Left nephroureteral stent in place. Tillman catheter in the decompressed bladder. Signed by: Tania Henning MD on 03/19/2019 4:49 PM
[2019-03-19] MEDS: COLCHICINE PO SCH (17:00)
[2019-03-19] MEDS: PROBENECID PO SCH (17:00)
[2019-03-19] MEDS: METOPROLOL SUCCINATE 50 MG TAB XL PO SCH (17:45)
[2019-03-19] MEDS: DULOXETINE HCL 30 MG DELAYED RELEASE PO SCH (17:45)
[2019-03-19] MEDS: INSULIN ASPART 70/30 100 UNITS/ML VIAL SC SCH (18:02)
[2019-03-19] MEDS: CEFTRIAXONE SOD 1 GM/NS 50 ML 50 ML IV SCH (18:02)
--- NOTE | 2019-03-19 18:03 | NUR ---
pageamberly guptaaud for k results of 6.9 awaiting for call back
[2019-03-19 18:06] LABS: BILIRUBIN,URINE NEGATIVE (NEGATIVE); CLARITY,URINE CLEAR (CLEAR); COLOR,URINE YELLOW (YELLOW); KETONES,URINE NEGATIVE (NEGATIVE); LEUKOCYTE ESTERASE ,URINE SMALL (NEGATIVE); NITRITE,URINE NEGATIVE (NEGATIVE); PROTEIN,URINE DIPSTICK NEGATIVE (NEGATIVE); URINE UROBILINOGEN 0.2 mg/dL (0.2 - 1)
--- NOTE | 2019-03-19 18:22 | NUR ---
md martínez notified of new k level new orders for additional 30 of Kayexalate given
[2019-03-19] MEDS ORDERED: SOD POLYSTYRENE SULFONATE SUSP 15 GM/60 ML BTL PO NR (18:30)
[2019-03-19 18:52] LABS: SODIUM,URINE 94 mmol/L; TOTAL PROTEIN, URINE 13.4 mg/dL (1-14)
[2019-03-19 19:51] LABS: EOSINOPHIL SMEAR,URINE NONE SEEN (NONE SEEN)
[2019-03-19 19:58] VITALS: BP 95/52
[2019-03-19 20:07] LABS: RBC,URINE 0-5 /HPF (0-5)
[2019-03-19 20:08] LABS: TRICHOMONAS,URINE MODERATE
[2019-03-19 20:45] VITALS: BP 95/52
--- NOTE | 2019-03-19 20:57 | Consultation ---
DATE OF CONSULTATION: 03/19/2019 Renal Consult REASON FOR CONSULT: Hyperkalemia and acute kidney failure. HISTORY OF PRESENT ILLNESS: This 44-year-old female with history of CKD stage 3, type 2 diabetes mellitus, hypertension, and multiple strokes, had sigmoid colon resection, the patient had an injury to her right ureter, status post repaired by Dr. Bach. She was scheduled to have cystoscopy, but now she has hyperkalemia and acute kidney failure. Also, the family reports that she had mental status changes starting Saturday. PAST MEDICAL HISTORY: Includes: 1. GERD. 2. Neuropathy. 3. Chronic pain syndrome. 4. Hemochromatosis with cirrhosis. 5. Hypertension. 6. Type 2 diabetes mellitus. 7. History of CVA, complicated by aphasia. 8. Chronic kidney disease, stage 3. PAST SURGICAL HISTORY: Includes: 1. Back surgery. 2. Knee surgery. 3. . 4. Hysterectomy. 5. Appendectomy. 6. Sigmoid colon resection with colostomy. 7. Urostomy and nephrostomy. 8. Status post ureter repair with stent. SOCIAL HISTORY: Positive for tobacco. No alcohol. FAMILY HISTORY: Positive for chronic kidney disease. ALLERGIES: DAPTOMYCIN, LYRICA, PREDNISONE, AND CARISOPRODOL. MEDICATIONS: Please see list. REVIEW OF SYSTEMS: Unable to get from the patient at this time. PHYSICAL EXAMINATION: GENERAL: The patient is very sleepy, confused. VITAL SIGNS: Blood pressure 106/56, afebrile, and pulse 92. HEENT: Pupils are equal, reactive to light and accommodation. NECK: No JVD. No bruit. LUNGS: Rhonchi. No rales. HEART: Regular rate and rhythm. No S3. No S4. ABDOMEN: Nontender and nondistended. No hepatomegaly or splenomegaly. EXTREMITIES: No clubbing, no cyanosis, no edema. LABORATORY DATA: White count 9.9, hemoglobin 11.6, hematocrit 38. Sodium 136, potassium 6.3, chloride 105, BUN 61, creatinine 3.39, GFR 15, albumin 2.9, baseline creatinine 1.15. ASSESSMENT AND PLAN: Flavz-ry-tuijnmk kidney disease, currently with hyperkalemia. The patient is treated for the hyperkalemia. We will check also renal ultrasound and we will give IV fluid if needed, currently off furosemide. Today, the patient is making more urine and clear color and she is currently having diarrhea, secondary to treatment with Kayexalate as I hoped the treatment of Kayexalate conservatively is improving her. I would discuss the case with Dr. Bach since the patient has a nephrostomy tube that is clamped, so for now, we will get renal ultrasound to rule out urinary tract infection and adjust medications as needed. We will also do blood cultures and treat potassium to prepare for cystoscopy. Thomas Downs MD MA/JOHNATHAN /[id number]
[2019-03-19] MEDS: QUETIAPINE FUMARATE 25 MG TAB PO SCH (21:39)
[2019-03-19] MEDS: ATORVASTATIN 10 MG TAB PO SCH (21:39)
[2019-03-20] VITALS (10 sets, daily range): BP systolic 99–144; BP diastolic 54–92
[2019-03-20] MEDS: OXYCODONE/ACETAMINOPHEN 5-325 1 EACH TABLET PO PRN ×3 (03:25→22:15)
[2019-03-20 07:29] LABS: ANION GAP 12.5 mmol/L (8-16); CREATININE, SERUM 1.99 mg/dL (0.57-1.11); POTASSIUM 5.5 mmol/L (3.5-5.1)
[2019-03-20] MEDS: PANTOPRAZOLE SOD 40 MG TABEC PO SCH (07:30)
[2019-03-20] MEDS: INSULIN LISPRO 100 UNIT/1 ML 3ML VIAL SQ SCH ×4 (07:30→21:56)
[2019-03-20] MEDS: INSULIN ASPART 70/30 100 UNITS/ML VIAL SC SCH ×2 (07:30→16:30)
[2019-03-20] MEDS: SODIUM CHLORIDE 0.9% 1000ML 1,000 ML IV SCH ×2 (08:44→18:44)
[2019-03-20] MEDS: AMITRIPTYLINE HCL 25 MG TAB PO SCH (08:44)
[2019-03-20] MEDS: DULOXETINE HCL 30 MG DELAYED RELEASE PO SCH ×2 (08:44→17:00)
[2019-03-20] MEDS: GABAPENTIN 300 MG CAP PO SCH ×2 (08:44→14:55)
[2019-03-20] MEDS: COLCHICINE PO SCH ×2 (08:45→17:00)
[2019-03-20] MEDS: METOPROLOL SUCCINATE 50 MG TAB XL PO SCH ×2 (08:45→17:00)
[2019-03-20] MEDS: PROBENECID PO SCH ×2 (08:45→17:00)
[2019-03-20] MEDS: FENTANYL 50 MCG/HR PATCH TOP SCH (08:45)
--- NOTE | 2019-03-20 08:45 | NUR ---
Patient alert and responsive, no resp distress, VSS and tolerated all meds, offered to reposition and patient refused, applied fentanyl patch to left upper shoulder, call light within reach, will monitor.
--- NOTE | 2019-03-20 10:45 | NUR ---
Rounds by Dr. Villalba and they want K+ level lower. Call to and orders in place for PT. Call to Dr. Horn's office and Dr. Downs covering and will call back.
--- NOTE | 2019-03-20 10:54 | NUR ---
Call to Dr. Downs and orders in place for Carmelo 60gms x1.
[2019-03-20] MEDS ORDERED: SOD POLYSTYRENE SULFONATE SUSP 15 GM/60 ML BTL PR ONE (11:30)
[2019-03-20] MEDS: CEFTRIAXONE SOD 1 GM/NS 50 ML 50 ML IV SCH (16:00)
[2019-03-20] MEDS: GABAPENTIN 100 MG CAP PO SCH ×2 (16:15→21:56)
--- NOTE | 2019-03-20 16:32 | NUR ---
PT HAS A HISTORY OF STROKE USES A DOC WALKER, SCHEDULED FOR A CYSTOCOPY WITH STENT, POT IS 6.5. NO DOCUMENTED DISCHARGE PLAN AT THIS TIME.
[2019-03-20 16:41] LABS: BASOPHILS # (AUTO) 0.1 (0.0-0.1); BASOPHILS % 1.3 % (0.0-1.0); EOSINOPHILS # (AUTO) 0.6 (0.0-0.4); EOSINOPHILS % 9.6 % (0.0-6.0); HEMATOCRIT 37.5 % (34.2-44.1); HEMOGLOBIN 11.6 g/dL (12.0-16.0); LYMPHOCYTES # (AUTO) 1.2 (1.0-3.2); LYMPHOCYTES % 20.1 % (18.0-39.1); MEAN CORPUSCULAR HEMOGLOBIN 25.7 pg (28-32); MEAN CORPUSCULAR HGB CONC 30.9 g/dL (31-35); MONOCYTES # (AUTO) 0.7 (0.2-0.8); MONOCYTES % 10.9 % (4.4-11.3); NEUTROPHILS # (AUTO) 3.4 (2.1-6.9); NEUTROPHILS % 57.8 % (38.7-80.0); PLATELET COUNT 250 x10e3/uL (140-360); RED BLOOD COUNT 4.52 x10e6/uL (3.6-5.1); RED CELL DISTRIBUTION WIDTH 15.9 % (11.7-14.4)
[2019-03-20 17:10] LABS: CALCIUM 8.7 mg/dL (8.4-10.2); CREATININE, SERUM 1.66 mg/dL (0.57-1.11)
--- NOTE | 2019-03-20 20:47 | NUR ---
patient refused repositioning. aaox3, no distress. bed locked and in lowest position, call light within reach. family at bedside. will continue to monitor.
[2019-03-20] MEDS: ATORVASTATIN 10 MG TAB PO SCH (21:56)
[2019-03-20] MEDS: QUETIAPINE FUMARATE 25 MG TAB PO SCH (21:56)
--- NOTE | 2019-03-20 22:15 | NUR ---
patient allowed for repositioning in bed for comfort. refused turning. bed locked and in lowest position, call light within reach. bed alarm on. no further needs at this time. will continue to monitor the patient.
[2019-03-21] VITALS (8 sets, daily range): BP systolic 107–152; BP diastolic 61–93
[2019-03-21] MEDS: SODIUM CHLORIDE 0.9% 1000ML 1,000 ML IV SCH (04:35)
[2019-03-21 06:38] LABS: ANION GAP 12.6 mmol/L (8-16); CALCIUM 8.8 mg/dL (8.4-10.2); CREATININE, SERUM 1.42 mg/dL (0.57-1.11); POTASSIUM 4.6 mmol/L (3.5-5.1)
[2019-03-21] MEDS: INSULIN LISPRO 100 UNIT/1 ML 3ML VIAL SQ SCH ×4 (07:30→21:00)
[2019-03-21] MEDS: PANTOPRAZOLE SOD 40 MG TABEC PO SCH (07:30)
[2019-03-21] MEDS: INSULIN ASPART 70/30 100 UNITS/ML VIAL SC SCH ×2 (07:30→16:23)
[2019-03-21] MEDS: OXYCODONE/ACETAMINOPHEN 5-325 1 EACH TABLET PO PRN ×3 (08:15→22:52)
[2019-03-21] MEDS: DULOXETINE HCL 30 MG DELAYED RELEASE PO SCH ×2 (08:58→16:16)
[2019-03-21] MEDS: AMITRIPTYLINE HCL 25 MG TAB PO SCH (08:58)
[2019-03-21] MEDS: PROBENECID PO SCH ×2 (08:58→16:16)
[2019-03-21] MEDS: COLCHICINE PO SCH ×2 (08:58→16:16)
[2019-03-21] MEDS: GABAPENTIN 100 MG CAP PO SCH ×3 (08:58→20:15)
[2019-03-21] MEDS: METOPROLOL SUCCINATE 50 MG TAB XL PO SCH ×2 (08:59→16:17)
--- NOTE | 2019-03-21 11:00 | NUR ---
rounds by Dr. Villalba and patient's potassium level down to 4.6. will complete cystoscopy on Saturday. Patient was OOB and ambulated over 200 feet with hemiwalker and with PT, OOB to chair at this time, will monitor.
[2019-03-21] MEDS: CEFTRIAXONE SOD 1 GM/NS 50 ML 50 ML IV SCH (16:16)
--- NOTE | 2019-03-21 16:39 | NUR ---
Report given to Niru MONTALVO and patient transferred to her care in stable condition
--- NOTE | 2019-03-21 18:19 | NUR ---
HOB ELEVATED, TOLERATED DINNER, VOICES NO NEEDS AT THIS TIME, CALL LIGHT WITHIN REACH
--- NOTE | 2019-03-21 19:10 | NUR ---
received patient aaox3, denies needs, denies pain. resp even/unlabored. no distress observed. mother at bedside. bed locked and in lowest position, call light within easy reach. will continue to monitor.
[2019-03-21] MEDS: ATORVASTATIN 10 MG TAB PO SCH (20:15)
[2019-03-21] MEDS: QUETIAPINE FUMARATE 25 MG TAB PO SCH (20:15)
--- NOTE | 2019-03-21 22:53 | NUR ---
patient c/o generalized pain, administered PRN pain medication. denies further needs. refused turning and repositioning. call light within reach. bed locked and in lowest position, bed alarm on.
[2019-03-22] VITALS (7 sets, daily range): BP systolic 129–174; BP diastolic 86–108
--- NOTE | 2019-03-22 00:35 | NUR ---
patient resting with eyes closed, resp even and unlabored, no distress observed. bed locked and in lowest position, call light within reach. continue to monitor.
[2019-03-22] MEDS: OXYCODONE/ACETAMINOPHEN 5-325 1 EACH TABLET PO PRN ×2 (05:33→21:16)
--- NOTE | 2019-03-22 07:16 | NUR ---
report given to oncoming nurse
[2019-03-22] MEDS: INSULIN LISPRO 100 UNIT/1 ML 3ML VIAL SQ SCH ×4 (07:30→21:35)
[2019-03-22] MEDS: INSULIN ASPART 70/30 100 UNITS/ML VIAL SC SCH ×2 (07:30→16:13)
[2019-03-22] MEDS: PANTOPRAZOLE SOD 40 MG TABEC PO SCH (07:30)
--- NOTE | 2019-03-22 08:30 | NUR ---
Patient alert and responsive, VSS, assisted to bedside for breakfast, then back to bed, emptied Colostomy bag, Tillman cath in place draining c/y urine. Rounds by attending and no major orders. Bed alarms in place, call light within reach
[2019-03-22] MEDS: METOPROLOL SUCCINATE 50 MG TAB XL PO SCH ×2 (09:00→16:14)
[2019-03-22] MEDS: COLCHICINE PO SCH ×2 (09:00→16:14)
[2019-03-22] MEDS: GABAPENTIN 100 MG CAP PO SCH ×3 (09:00→21:16)
[2019-03-22] MEDS: DULOXETINE HCL 30 MG DELAYED RELEASE PO SCH ×2 (09:00→16:13)
[2019-03-22] MEDS: PROBENECID PO SCH ×2 (09:00→16:14)
[2019-03-22] MEDS: AMITRIPTYLINE HCL 25 MG TAB PO SCH (09:00)
--- NOTE | 2019-03-22 10:23 | NUR ---
Call from Dr. Bach and orders in place to obtain consent for procedure tomorrow and will be NPO after midnight.
--- NOTE | 2019-03-22 15:46 | NUR ---
Patient with low blood sugar, awake and eating at this time, offered 2 cans of OJ and drank both, will recheck
[2019-03-22] MEDS: CEFTRIAXONE SOD 1 GM/NS 50 ML 50 ML IV SCH (16:12)
--- NOTE | 2019-03-22 18:16 | NUR ---
Patient's mother signed consent for cystoscopy for tomorrow. FS rechecked and at 121, appetite good, Tillman draining c/y urine, colostomy in place and output about 750cc. Call light within reach
--- NOTE | 2019-03-22 19:00 | NUR ---
RECEIVED PATIENT IN REPORT. PATIENT RESTING IN BED AT THIS TIME. MOTHER AT BEDSIDE. NO PAIN REPORTED AT THIS TIME. NO S&S OF DISTRESS NOTED. BED LOCKED IN LOWEST POSITION, SIDE RAILS UPX2, CALL LIGHT IN REACH.
[2019-03-22] MEDS: ATORVASTATIN 10 MG TAB PO SCH (21:16)
[2019-03-22] MEDS: QUETIAPINE FUMARATE 25 MG TAB PO SCH (21:16)
[2019-03-23] VITALS (7 sets, daily range): BP systolic 115–160; BP diastolic 60–99
[2019-03-23] MEDS: OXYCODONE/ACETAMINOPHEN 5-325 1 EACH TABLET PO PRN ×3 (03:56→23:43)
[2019-03-23 06:50] LABS: ANION GAP 13.3 mmol/L (8-16); CALCIUM 9.2 mg/dL (8.4-10.2); CREATININE, SERUM 1.22 mg/dL (0.57-1.11); POTASSIUM 4.3 mmol/L (3.5-5.1)
[2019-03-23] MEDS: INSULIN ASPART 70/30 100 UNITS/ML VIAL SC SCH ×2 (07:30→17:00)
[2019-03-23] MEDS: PANTOPRAZOLE SOD 40 MG TABEC PO SCH (07:30)
[2019-03-23] MEDS: INSULIN LISPRO 100 UNIT/1 ML 3ML VIAL SQ SCH ×4 (07:30→20:28)
[2019-03-23] MEDS: AMITRIPTYLINE HCL 25 MG TAB PO SCH (08:32)
[2019-03-23] MEDS: GABAPENTIN 100 MG CAP PO SCH ×3 (08:32→20:36)
[2019-03-23] MEDS: COLCHICINE PO SCH ×2 (08:32→17:00)
[2019-03-23] MEDS: DULOXETINE HCL 30 MG DELAYED RELEASE PO SCH ×2 (08:32→17:00)
[2019-03-23] MEDS: PROBENECID PO SCH ×2 (08:32→17:00)
[2019-03-23] MEDS: METOPROLOL SUCCINATE 50 MG TAB XL PO SCH ×2 (08:50→17:00)
[2019-03-23] MEDS ORDERED: IOPAMIDOL 610MG/1ML 300 MG/ML VIAL IV ONE ×2 (10:39→12:05)
[2019-03-23] MEDS ORDERED: FENTANYL CITRATE/PF 100MCG/2 ML INJ ONE ×2 (12:39→17:56)
--- NOTE | 2019-03-23 13:00 | NUR ---
report received from Rosamaria in recovery. patient to arrive back to unit via hospital bed, alert and in no distress.
--- NOTE | 2019-03-23 13:10 | NUR ---
patient arrived back to unit via hospital bed. patient alert and in no distress with family at bedside. call carl within reach and bed in lowest position.
[2019-03-23] MEDS: FENTANYL 50 MCG/HR PATCH TOP SCH (13:37)
[2019-03-23] MEDS: CEFTRIAXONE SOD 1 GM/NS 50 ML 50 ML IV SCH (17:00)
[2019-03-23] MEDS ORDERED: ONDANSETRON HCL INJ 2MG/ML 2ML 2 MG/ML VIAL ONE (17:56)
[2019-03-23] MEDS ORDERED: LIDOCAINE HCL 2% LOCAL INJ 5 ML SDV VIAL INJ ONE (17:56)
[2019-03-23] MEDS ORDERED: PROPOFOL IV EMULSION 10 MG/ML 20 ML VIAL ONE (17:56)
[2019-03-23] MEDS ORDERED: MIDAZOLAM HCL 2 MG/2 ML VIAL ONE (17:56)
[2019-03-23] MEDS ORDERED: DEXAMETHASONE SOD PHOS INJ 4 MG/ML VIAL ONE (17:56)
[2019-03-23] MEDS ORDERED: SEVOFLURANE INHAL SOLN 250 ML PEN BTL ONE (17:56)
--- NOTE | 2019-03-23 18:53 | Operative Report ---
DATE OF PROCEDURE: 03/23/2019 SURGEON: Emily Bach MD SERVICE: Urology. PREOPERATIVE DIAGNOSES: 1. Left percutaneous nephrostomy tube. 2. Left double-J stent. 3. Left hydronephrosis. 4. Colostomy. 5. History of left . POSTOPERATIVE DIAGNOSES: 1. Left percutaneous nephrostomy tube. 2. Left double-J stent. 3. Left hydronephrosis. 4. Colostomy. 5. History of left . OPERATIONS PERFORMED: 1. Nephrostogram, left side under fluoroscopic control. 2. Cystoscopy and right retrograde pyelograms under fluoroscopic control. 3. Removal of double-J stent from the left side. 4. Left retrograde pyelogram. 5. Left ureteroscopy. 6. Interpretation of x-ray, radiologist not present. 7. Supervision of fluoroscopy, radiologist not present. BISCUIT FACTORY WORKER: None. ANESTHESIA: General. CLINICAL INDICATION NOTE: A 44-year-old patient was treated by pa in the past following injury to the left ureter and underwent ureteral anastomosis. The patient does have a double-J stent in place as well as nephrostomy. Following that surgery, which was done during general surgery, colon surgery with injury to the ureter. The patient following that had pelvic abscess with some stool leakage and underwent colostomy as well as drain. Presently, she is brought for further assessment of the left side and possible removal of the stent and nephrostomy. Procedure was discussed with the patient and her mother and accepted. DESCRIPTION OF PROCEDURE AND FINDINGS: After appropriate level of anesthesia was achieved, the patient was placed in lithotomy position, prepped and draped in a sterile fashion. Urethra inspected was unremarkable. Bladder outlet was normal. Bladder mucosa was normal. The double-J stent was protruding from the left side. At this point, left nephrostogram was done, no leakage was noticed along the ureter. Following this, right retrograde pyelograms were done under fluoroscopic control. The right collecting system was unremarkable. Following this, the left double-J stent was pulled to the urethral meatus. A wire was passed through it and advanced into the kidney. Open-end catheter inserted and retrograde pyelograms were done, no leakage from the ureter was noticed. The wire was kept in place and a flexible ureteroscopy was done. The exam was unremarkable. Following this, the scope was removed. The patient's double-J stent will not be repositioned. The left percutaneous nephrostomy was removed under fluoroscopic control. The patient tolerated the procedure well, was transferred in satisfactory condition to the recovery room. MD GRACIELA Pedraza/JOHNATHAN /[id number]
--- NOTE | 2019-03-23 19:10 | NUR ---
walking rounds made with night clerk auditor nurse, patient aware of change and in no distress. friend at bedside, call carl within reach and bed in lowest position.
[2019-03-23] MEDS: QUETIAPINE FUMARATE 25 MG TAB PO SCH (20:36)
[2019-03-23] MEDS: ATORVASTATIN 10 MG TAB PO SCH (20:36)
[2019-03-24] VITALS (7 sets, daily range): BP systolic 101–141; BP diastolic 50–91
[2019-03-24 06:43] LABS: BASOPHILS # (AUTO) 0.1 (0.0-0.1); BASOPHILS % 1.3 % (0.0-1.0); EOSINOPHILS # (AUTO) 0.6 (0.0-0.4); EOSINOPHILS % 7.6 % (0.0-6.0); HEMOGLOBIN 11.7 g/dL (12.0-16.0); LYMPHOCYTES # (AUTO) 1.9 (1.0-3.2); LYMPHOCYTES % 22.1 % (18.0-39.1); MEAN CORPUSCULAR HEMOGLOBIN 24.9 pg (28-32); MEAN CORPUSCULAR VOLUME 83.2 fL (81-99); MONOCYTES # (AUTO) 0.8 (0.2-0.8); MONOCYTES % 8.9 % (4.4-11.3); NEUTROPHILS # (AUTO) 5.1 (2.1-6.9); NEUTROPHILS % 59.9 % (38.7-80.0); PLATELET COUNT 231 x10e3/uL (140-360); RED BLOOD COUNT 4.69 x10e6/uL (3.6-5.1); RED CELL DISTRIBUTION WIDTH 16.3 % (11.7-14.4)
[2019-03-24 07:00] LABS: ANION GAP 14.4 mmol/L (8-16); CALCIUM 8.9 mg/dL (8.4-10.2); CREATININE, SERUM 1.24 mg/dL (0.57-1.11); POTASSIUM 4.4 mmol/L (3.5-5.1)
--- NOTE | 2019-03-24 07:11 | NUR ---
Report given to SELVIN Jeffrey. Pt sleeping in bed at this time. Respirations are regular and even and pt is in no apparent distress. Call light is in reach.
[2019-03-24] MEDS: INSULIN ASPART 70/30 100 UNITS/ML VIAL SC SCH (07:30)
[2019-03-24] MEDS: INSULIN LISPRO 100 UNIT/1 ML 3ML VIAL SQ SCH ×2 (07:30→12:34)
--- NOTE | 2019-03-24 07:52 | NUR ---
Pt received in bed with eyes closed. Easily arouses with verbal stimuli. Pt denies any pain at this time. Breaths are even and unlabored.
[2019-03-24] MEDS: AMITRIPTYLINE HCL 25 MG TAB PO SCH (09:00)
[2019-03-24] MEDS: PROBENECID PO SCH ×2 (09:00→17:00)
[2019-03-24] MEDS: COLCHICINE PO SCH ×2 (09:00→17:00)
[2019-03-24] MEDS: PANTOPRAZOLE SOD 40 MG TABEC PO SCH (09:24)
[2019-03-24] MEDS: GABAPENTIN 100 MG CAP PO SCH ×2 (09:25→15:06)
[2019-03-24] MEDS: DULOXETINE HCL 30 MG DELAYED RELEASE PO SCH ×2 (09:25→17:00)
[2019-03-24] MEDS: METOPROLOL SUCCINATE 50 MG TAB XL PO SCH ×2 (09:26→17:01)
--- NOTE | 2019-03-24 09:55 | Discharge Summary ---
CONSULTANTS: Dr. Gab Roy. Dr. Emily Bach. FINAL DIAGNOSES: 1. Severe hyperkalemia, elevated potassium secondary to combination of Aldactone, chronic kidney disease, and Bactrim given for urinary tract infection. 2. Status post left nephrostomy tube and ureteral stent removal. 3. Multiple chronic baseline problems. SUMMARY: The patient is a 44-year-old female with chronic renal insufficiency, came in with acute kidney failure secondary to combination of slight dehydration. Combination of Bactrim and also Aldactone given. The patient potassium was quite elevated. She was scheduled outpatient procedures for ureteral stent removal and nephrostomy tube management, but because the potassium was quite elevated, the patient admitted to the hospital for treatment. She received multiple rounds of treatment Kayexalate and sodium bicarb, IV fluids and hold off on the Aldactone. The patient's renal function was also diminished as well, given combination of dehydration and medication induced. The patient on presentation her potassium was 6.3, BUN and creatinine of 61 and 3.39. Now, the patient is improving, the potassium is 4.4. BUN and creatinine of 22 and 1.2. Aldactone has been stopped. The patient is stable. She underwent procedures done by Dr. Emily Bach, one of the surgeon, who took care of the patient previously. She had a left percutaneous nephrostomy tube that was removed, left double-J stent removed and left hydronephrosis improved. The patient is stable, discharged home today. Stop the Aldactone and continue with other home medication. The patient is stable, discharged today. MD GISELLE Ibrahim/JOHNATHAN /[id number]
[2019-03-24] MEDS: OXYCODONE/ACETAMINOPHEN 5-325 1 EACH TABLET PO PRN ×2 (10:15→15:06)
--- NOTE | 2019-03-24 10:17 | NUR ---
Spoke to pt about discharge orders for today and pt states that her ride cannot be here until after lunch.
--- NOTE | 2019-03-24 10:45 | NUR ---
Spoke with Mrs. Gaby De Leon, which is pt mother and ride, regarding her discharge for today. Mrs. Griffin states she is at work and wont be able to pick her up until after 5pm because that is when she gets off work.
--- NOTE | 2019-03-24 12:18 | NUR ---
CM SPOKE TO PATIENT AT BEDSIDE REGARDING HOME HEALTH SERVICES. PATIENT STATES SHE WANTS TO RESUME SERVICES WITH CURRENT HOME HEALTH AGENCY [facility]. CLINICAL SENT TO [facility]. PATIENT TO RESUME SERVICES DAY AFTER DISCHARGE. DISCHARGE ORDER WRITTEN. PATIENT TO DISCHARGE TODAY [facility] (P) [phone] (F) [phone]
--- NOTE | 2019-03-24 12:20 | NUR ---
DISCHARGE DISPOSITION PATIENT DISCHARGING HOME WITH RESUMPTION OF HOME HEALTH SERVICES FROM FOLLOWING COMPANY: [employer] [facility] (P) [phone] (F) [phone]
--- NOTE | 2019-03-24 15:14 | NUR ---
WOUND CARE CONSULT: THIS IS A 44 YEAR OLD FEMALE PATIENT ADMITTED TO [facility] FOR HYPERKALEMIA AND ACUTE KIDNEY FAILURE. HEAD TO TOE SKIN ASSESSMENT PERFORMED. PATIENT HAS AN AREA OF REDNESS NOTED TO THE SACRAL CREASE MEASURING 6X2CM, 100% BLANCHALBE, SKIN INTACT. LABS: WBC8.47 ALB2.9 BLOOD CULTURE = NEGATIVE URINE CULTURE = PENDING MEDICATIONS: CEFTRIAXONE RECOMMENDATION: -CONTINUE ALTERNATING PRESSURE RELIEF MATTRESS. -APPLY BILATERAL HEEL PROTECTORS WITH PILLOW SUSPENSION. -TURN EVERY 2 HOURS AND PRN. -NURSING TO CLEAN AREA OF BLANCHABLE REDNESS TO SACRAL CREASE WITH NORMAL SALINE, PAT DRY, APPLY VENELEX THEN ALLEVYN FOAM DRESSING; CHANGE DAILY AND PRN. THANK YOU FOR THIS WOUND CARE CONSULT. Addendum: 03/24/19 at 1521 by Rosamaria Little RN Amended: Links added.
[2019-03-24] MEDS: CEFTRIAXONE SOD 1 GM/NS 50 ML 50 ML IV SCH (17:00)
--- NOTE | 2019-03-24 18:05 | NUR ---
Pt discharged home at this time. Pt is aox3 and able to verbalize needs. Denies any pain at time of discharge. Pt and family verbalized understanding of all discharge instructions and follow up nadja.
[2019-03-25] MEDS ORDERED: BALSAM PERU/CASTOR OIL 60 GM OINT...G. TP SCH (09:00)
[2019-04-24] MEDS ORDERED: NORCO 10-325 T1 EACH PO (10:08)
[2019-04-24] MEDS ORDERED: SENNA LAX8.6 MG PO (10:08)
[2019-04-24] MEDS ORDERED: DIVALPROEX SOD125 M1 PO (10:08)
[2019-04-24] MEDS ORDERED: PANTOPRAZOLE SO40 MG PO (10:08)
[2019-04-24] MEDS ORDERED: FENTANYL1 EAC1 TOP (10:08)
[2019-04-24] MEDS ORDERED: COLCRYS0.6 MG PO (10:08)
[2019-04-24] MEDS ORDERED: METOCLOPRAMIDE H5 MG PO (10:08)
== END 2019-03-24 18:09 | disposition home or self-care (01) | DRG 699 ==
LOC: OR 08:05 → PACU V 09:09 → MED/SURG 11:05
PROVIDERS: ADMIT Internal Medicine; ATTEND Internal Medicine
PROC: 0TP98DZ Removal of Intraluminal Device from Ureter, Via Natural or Artificial Opening Endoscopic (ICD-10-PCS; 2019-03-23)
PROC: BT141ZZ Fluoroscopy of Kidneys, Ureters and Bladder using Low Osmolar Contrast (ICD-10-PCS; 2019-03-23)
PROC: 0TP5X0Z Removal of Drainage Device from Kidney, External Approach (ICD-10-PCS; principal; 2019-03-23 11:33)
DX: T83.512A Infection and inflammatory reaction due to nephrostomy catheter, initial encounter (principal); N17.9 Acute kidney failure, unspecified; N39.0 Urinary tract infection, site not specified; Z68.41 Body mass index [BMI] 40.0-44.9, adult; G93.40 Encephalopathy, unspecified; N13.30 Unspecified hydronephrosis; E87.5 Hyperkalemia; R41.82 Altered mental status, unspecified; I69.320 Aphasia following cerebral infarction; Z93.3 Colostomy status; Z96.0 Presence of urogenital implants; E11.22 Type 2 diabetes mellitus with diabetic chronic kidney disease; I12.9 Hypertensive chronic kidney disease with stage 1 through stage 4 chronic kidney disease, or unspecified chronic kidney disease; N18.3 Chronic kidney disease, stage 3 (moderate); G89.4 Chronic pain syndrome; E11.42 Type 2 diabetes mellitus with diabetic polyneuropathy; R19.7 Diarrhea, unspecified; Z93.6 Other artificial openings of urinary tract status; K21.9 Gastro-esophageal reflux disease without esophagitis; T50.0X5A Adverse effect of mineralocorticoids and their antagonists, initial encounter; E66.9 Obesity, unspecified; N39.46 Mixed incontinence; Z79.4 Long term (current) use of insulin
CPT/HCPCS: 36415; 71046; 74420; 76770; 80048; 80053; 81001; 81015; 82948; 83735; 83880; 84132; 84156; 84300; 85025; 85610; 85730; 87040; 87086; 87186; 93005; 97139; C1758; J0696; J1100; J1815; J1940; J2001; J2250; J2405; J3010; J7030

== ENCOUNTER 2019-04-27 09:36 | Inpatient (IN) | payer BC ==
[2019-04-24 11:35] LABS: BASOPHILS # (AUTO) 0.1 (0.0-0.1); BASOPHILS % 1.1 % (0.0-1.0); EOSINOPHILS # (AUTO) 0.5 (0.0-0.4); EOSINOPHILS % 6.4 % (0.0-6.0); HEMATOCRIT 39.2 % (34.2-44.1); HEMOGLOBIN 11.9 g/dL (12.0-16.0); LYMPHOCYTES # (AUTO) 1.7 (1.0-3.2); LYMPHOCYTES % 20.4 % (18.0-39.1); MEAN CORPUSCULAR HEMOGLOBIN 25.9 pg (28-32); MEAN CORPUSCULAR HGB CONC 30.4 g/dL (31-35); MEAN CORPUSCULAR VOLUME 85.2 fL (81-99); MONOCYTES # (AUTO) 0.9 (0.2-0.8); NEUTROPHILS # (AUTO) 5.1 (2.1-6.9); NEUTROPHILS % 60.5 % (38.7-80.0); PLATELET COUNT 292 x10e3/uL (140-360); RED CELL DISTRIBUTION WIDTH 18.4 % (11.7-14.4)
[2019-04-24 11:55] LABS: ANION GAP 13.3 mmol/L (8-16); CALCIUM 9.2 mg/dL (8.4-10.2); CREATININE, SERUM 1.2 mg/dL (0.57-1.11); POTASSIUM 4.3 mmol/L (3.5-5.1)
[2019-04-24 17:08] LABS: ALBUMIN/GLOBULIN RATIO 0.6 (0.8-2.0); ANION GAP 14.3 mmol/L (8-16); CALCIUM 9.3 mg/dL (8.4-10.2); CREATININE, SERUM 1.24 mg/dL (0.57-1.11); POTASSIUM 4.3 mmol/L (3.5-5.1)
[~2019-04-27] VITALS: Ht 172.7 cm; Wt 117.9 kg
[~2019-04-27 09:36] MED LIST changes: +COLCRYS0.6 MG PO; +DIVALPROEX SOD125 M1 PO; +FENTANYL1 EAC1 TOP; +METOCLOPRAMIDE H5 MG PO; +NORCO 10-325 T1 EACH PO; +PANTOPRAZOLE SO40 MG PO; +SENNA LAX8.6 MG PO
[2019-04-27] MEDS ORDERED: CEFOXITIN 2GM/ D5W 50ML 50 ML IV ONE (09:52)
[2019-04-27] MEDS ORDERED: HYDROCODONE/APAP 7.5MG-325MG 1 EA TAB PO PRN (13:00)
[2019-04-27] MEDS ORDERED: ONDANSETRON PO SCH (13:00)
[2019-04-27] MEDS ORDERED: HYDROMORPHONE 1MG/1ML INJ IV PRN (13:00)
[2019-04-27] MEDS ORDERED: DEXTROSE 50% SYRINGE 50 ML IV PRN (13:00)
[2019-04-27] MEDS ORDERED: CHOLECALCIFEROL PO SCH (13:00)
--- NOTE | 2019-04-27 13:30 | Operative Report ---
DATE OF PROCEDURE: 04/27/2019 SURGEON: Ej Mcgee MD PREOPERATIVE DIAGNOSES: Perforated colon, status post colostomy. POSTOPERATIVE DIAGNOSIS: Perforated colon, status post colostomy. PROCEDURE: Closure of colostomy with partial colon resection. SERVICE SPRINKLER HELPER: None. ANESTHESIA: General. INDICATIONS AND FINDINGS: The patient is a 44-year-old female, previous surgery for colon stricture, developed perforation, requiring colostomy. The distal colon healed without any problem. At this time of surgery, there were no abnormalities of the colon noted. TECHNIQUE: After adequate general endotracheal anesthesia, the patient is in supine position, the abdomen was prepped and draped in sterile fashion with ChloraPrep solution. Incision was made around the colostomy stoma in the right upper abdomen, carried down through subcutaneous tissue down to the fascia and the colon freed from the subcutaneous tissues down to the fascia and completely freed from the fascia, so the colon easily delivered up in the wound. There was a loop colostomy. A PEDRO PABLO stapler was placed in each limb of the colostomy and fired, and then a TL60 stapler was placed across where the colostomy stoma has been fired and this portion the colostomy of the stoma was then resected. There is a small open area and a TL60 stapler was passed once again and this portion of the colon also resected. The anastomosis was found to be widely patent. Hemostasis was seen to be adequate. The colon was then returned to the peritoneal cavity. The wound was irrigated with saline, inspected for hemostasis, which was seen to be adequate. The fascia was then closed transversely with a running suture of #1 PDS. Subcutaneous tissue was irrigated with saline and closed with 3-0 Vicryl subcutaneous tissue and gretel for the skin. Sterile dressing was applied. The patient tolerated the procedure well. Estimated blood loss was 20 mL. There were no complications. All counts were correct. The patient was taken to the recovery room in satisfactory condition. Ej Mcgee MD DWG/MODL /[id number]
[2019-04-27] MEDS: SODIUM CHLORIDE 0.9% 1000ML 1,000 ML IV SCH (15:00)
--- NOTE | 2019-04-27 15:00 | NUR ---
RED PT FROM PACU VIA STRETCHER DROWSY,EASILY AROUSED,O2 2L NC IN PLACE,BEATTY TO BSD CLEAR YELLOW URINE,DRSG TO RT Abd cd&i,IV IN FUSING TO LT AC 18 G.
[2019-04-27] MEDS ORDERED: SODIUM CHLORIDE 0.9% 1000ML 1,000 ML ONE (15:02)
[2019-04-27 16:07] VITALS: BP 106/58
[2019-04-27] MEDS: INSULIN LISPRO 100 UNIT/1 ML 3ML VIAL SQ SCH ×2 (16:30→20:57)
[2019-04-27] MEDS: METOCLOPRAMIDE HCL 10 MG TAB PO SCH (16:30)
[2019-04-27] MEDS ORDERED: ROCURONIUM BROMIDE 10 MG/ML 5ML VIAL ONE (16:34)
[2019-04-27] MEDS ORDERED: NEOSTIGMINE 5 MG/5ML SYR ONE (16:34)
[2019-04-27] MEDS ORDERED: ONDANSETRON HCL INJ 2MG/ML 2ML 2 MG/ML VIAL ONE (16:34)
[2019-04-27] MEDS ORDERED: GLYCOPYRROLATE INJ 1MG/ 5 ML SYR ONE (16:34)
[2019-04-27] MEDS ORDERED: DEXAMETHASONE SOD PHOS INJ 4 MG/ML VIAL ONE (16:34)
[2019-04-27] MEDS ORDERED: LIDOCAINE HCL 2% LOCAL INJ 5 ML SDV VIAL INJ ONE (16:34)
[2019-04-27] MEDS ORDERED: PROPOFOL IV EMULSION 10 MG/ML 20 ML VIAL ONE (16:34)
[2019-04-27] MEDS ORDERED: SEVOFLURANE INHAL SOLN 250 ML PEN BTL ONE (16:34)
[2019-04-27] MEDS ORDERED: MIDAZOLAM HCL 2 MG/2 ML VIAL ONE (16:39)
[2019-04-27] MEDS ORDERED: FENTANYL CITRATE/PF 100MCG/2 ML INJ ONE (16:39)
[2019-04-27] MEDS ORDERED: NON-FORMULARY MEDICATION (Metoclopramide Hcl 5 MG) PO SCH (17:00)
[2019-04-27] MEDS: DIVALPROEX SODIUM 125 MG TABDR...ER PO SCH (17:00)
[2019-04-27] MEDS: DULOXETINE HCL 30 MG DELAYED RELEASE PO SCH (17:00)
[2019-04-27] MEDS: METOPROLOL SUCCINATE 25 MG TAB XL PO SCH (17:00)
[2019-04-27] MEDS ORDERED: METOPROLOL SUCCINATE 50 MG TAB XL PO SCH (17:00)
[2019-04-27] MEDS: COLCHICINE 0.6 MG TAB PO SCH (17:00)
[2019-04-27] MEDS ORDERED: DIVALPROEX SODIUM 125 MG PO SCH (17:00)
[2019-04-27] MEDS: GABAPENTIN 300 MG CAP PO SCH (17:00)
--- NOTE | 2019-04-27 17:00 | NUR ---
PT C/O ABD PAIN MEDICATED
[2019-04-27] MEDS ORDERED: CEFOXITIN 1GM/ D5W 50ML 50 ML IV SCH (18:00)
--- NOTE | 2019-04-27 19:45 | NUR ---
BS rounds completed with morning nurse. Pt alert to name, disoriented to place, time, and situation. 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 Pt able to communicate pain level with fingers count 8/10 abd pain. Call carl within reach. Family at BS. Will continue to monitor.
--- NOTE | 2019-04-27 19:50 | NUR ---
Pt/family c/o Dilaudid 1mg Q3 hrs pain med not relieving pain for [address] Palacios ordered to change to Dilaudid 1mg Q2hrs.
[2019-04-27 20:00] VITALS: BP 127/67
[2019-04-27 20:18] VITALS: BP 127/67
[2019-04-27] MEDS: HYDROMORPHONE 1MG/1ML INJ IV PRN ×2 (20:20→22:35)
[2019-04-27 20:45] VITALS: BP 127/67
[2019-04-27] MEDS: ATORVASTATIN 10 MG TAB PO SCH (20:56)
[2019-04-27] MEDS: AMITRIPTYLINE HCL 25 MG TAB PO SCH (20:56)
[2019-04-27] MEDS: QUETIAPINE FUMARATE 25 MG TAB PO SCH (20:57)
[2019-04-28] VITALS (7 sets, daily range): BP systolic 107–134; BP diastolic 58–65
[2019-04-28] MEDS: CEFOXITIN 1GM/ NS 50ML 50 ML IV SCH ×2 (02:26→08:56)
[2019-04-28] MEDS: SODIUM CHLORIDE 0.9% 1000ML 1,000 ML IV SCH (02:26)
[2019-04-28] MEDS: HYDROMORPHONE 1MG/1ML INJ IV PRN ×4 (02:27→19:24)
[2019-04-28 05:46] LABS: BASOPHILS # (AUTO) 0.1 (0.0-0.1); BASOPHILS % 0.5 % (0.0-1.0); EOSINOPHILS % 0.1 % (0.0-6.0); HEMATOCRIT 39.5 % (34.2-44.1); HEMOGLOBIN 11.9 g/dL (12.0-16.0); LYMPHOCYTES # (AUTO) 1.1 (1.0-3.2); LYMPHOCYTES % 9.9 % (18.0-39.1); MEAN CORPUSCULAR HEMOGLOBIN 25.9 pg (28-32); MEAN CORPUSCULAR HGB CONC 30.1 g/dL (31-35); MEAN CORPUSCULAR VOLUME 85.9 fL (81-99); MONOCYTES # (AUTO) 0.9 (0.2-0.8); NEUTROPHILS # (AUTO) 9.1 (2.1-6.9); PLATELET COUNT 260 x10e3/uL (140-360); RED CELL DISTRIBUTION WIDTH 18.1 % (11.7-14.4)
[2019-04-28 06:07] LABS: ANION GAP 13.6 mmol/L (8-16); CALCIUM 8.6 mg/dL (8.4-10.2); CREATININE, SERUM 1.42 mg/dL (0.57-1.11); POTASSIUM 4.6 mmol/L (3.5-5.1)
--- NOTE | 2019-04-28 06:55 | NUR ---
BS rounds completed with morning nurse. Pt lying in bed with eyes closed. No acute distress noted.
[2019-04-28] MEDS: INSULIN LISPRO 100 UNIT/1 ML 3ML VIAL SQ SCH ×4 (07:30→22:15)
--- NOTE | 2019-04-28 07:38 | NUR ---
patient resting in bed, alert with no distress, dressing on abdomen is intact,keep monitoring
[2019-04-28] MEDS: COLCHICINE 0.6 MG TAB PO SCH ×2 (08:56→17:10)
[2019-04-28] MEDS: PANTOPRAZOLE SOD 40 MG TABEC PO SCH (08:56)
[2019-04-28] MEDS: METOCLOPRAMIDE HCL 10 MG TAB PO SCH ×2 (08:56→17:10)
[2019-04-28] MEDS: ASPIRIN 325 MG TAB PO SCH (08:56)
[2019-04-28] MEDS: GABAPENTIN 300 MG CAP PO SCH ×2 (08:57→17:10)
[2019-04-28] MEDS: DULOXETINE HCL 30 MG DELAYED RELEASE PO SCH ×2 (08:57→17:10)
[2019-04-28] MEDS: DIVALPROEX SODIUM 125 MG TABDR...ER PO SCH ×2 (08:57→17:10)
[2019-04-28] MEDS: METOPROLOL SUCCINATE 25 MG TAB XL PO SCH ×2 (09:02→17:10)
--- NOTE | 2019-04-28 09:25 | NUR ---
Patient refused to d/c miranda out, Dr Mcgee notified, new order recvd to take it out tomorrow
[2019-04-28] MEDS: ONDANSETRON HCL INJ 2MG/ML 2ML 2 MG/ML VIAL IV PRN ×2 (12:16→16:18)
--- NOTE | 2019-04-28 15:40 | NUR ---
Visit made by the Spiritual Care Department Pastoral Visitor, Maria Eugenia Underwood. Pt sleeping soundly. Pastoral Visitor left a card describing availability of epidemiology internship and instructions on how to contact a epidemiology internship. BETINA GALVAN [employer] Spiritual Care Department O: [phone] Pager: [phone] ([phone] calling from)
--- NOTE | 2019-04-28 16:20 | NUR ---
attempted X2 to take the miranda catheter out patient refusing and screaming, her mom at bed side
--- NOTE | 2019-04-28 18:43 | NUR ---
RECEIVED REPORT FROM PREVIOUS NURSE. CALL LIGHT WITHIN REACH. PATIENT IN BED. SISTER AT BEDSIDE
[2019-04-28] MEDS: AMITRIPTYLINE HCL 25 MG TAB PO SCH (21:50)
[2019-04-28] MEDS: QUETIAPINE FUMARATE 25 MG TAB PO SCH (21:50)
[2019-04-28] MEDS: ATORVASTATIN 10 MG TAB PO SCH (21:50)
[2019-04-29] VITALS (7 sets, daily range): BP systolic 102–137; BP diastolic 53–70
[2019-04-29 05:38] LABS: BASOPHILS # (AUTO) 0.1 (0.0-0.1); EOSINOPHILS # (AUTO) 0.5 (0.0-0.4); HEMATOCRIT 35.7 % (34.2-44.1); HEMOGLOBIN 10.6 g/dL (12.0-16.0); LYMPHOCYTES % 21.4 % (18.0-39.1); MEAN CORPUSCULAR HEMOGLOBIN 25.5 pg (28-32); MEAN CORPUSCULAR HGB CONC 29.7 g/dL (31-35); MONOCYTES # (AUTO) 0.9 (0.2-0.8); MONOCYTES % 9.4 % (4.4-11.3); NEUTROPHILS # (AUTO) 5.8 (2.1-6.9); NEUTROPHILS % 62.9 % (38.7-80.0); PLATELET COUNT 267 x10e3/uL (140-360); RED BLOOD COUNT 4.15 x10e6/uL (3.6-5.1); RED CELL DISTRIBUTION WIDTH 18.3 % (11.7-14.4)
[2019-04-29 05:55] LABS: CALCIUM 8.7 mg/dL (8.4-10.2); CREATININE, SERUM 1.05 mg/dL (0.57-1.11)
--- NOTE | 2019-04-29 07:10 | NUR ---
PATIENT IN STABLE CONDITION WITH NO S/S OF RESPIRATORY DISTRESS. PATIENT C/O ABD PAIN 06/11. 02 APPLIED AT 3L NC. TELEMETRY APPLIED WITH CONTINUOUS PULSE OX. BEATTY INTACT AND DRAINING; URINE IS CLEAR AND YELLOW. BED ALARM ON. PATIENT REFUSED TO LET RN ASSESS HER BILATERAL FEET/PULSES. PATIENT REFUSED TO HAVE BEATTY REMOVED TODAY. CALL LIGHT IS WITHIN REACH, PATIENT INSTRUCTED TO CALL FOR ASSISTANCE NEEDED.
[2019-04-29] MEDS: HYDROMORPHONE 1MG/1ML INJ IV PRN ×6 (07:24→23:00)
--- NOTE | 2019-04-29 07:25 | NUR ---
Gave bedside report to oncoming nurse. call light within reach. patient in bed.
[2019-04-29] MEDS: INSULIN LISPRO 100 UNIT/1 ML 3ML VIAL SQ SCH ×4 (07:30→20:34)
[2019-04-29] MEDS: COLCHICINE 0.6 MG TAB PO SCH ×2 (08:29→16:13)
[2019-04-29] MEDS: DIVALPROEX SODIUM 125 MG TABDR...ER PO SCH ×2 (08:29→16:13)
[2019-04-29] MEDS: DULOXETINE HCL 30 MG DELAYED RELEASE PO SCH ×2 (08:29→16:13)
[2019-04-29] MEDS: ASPIRIN 325 MG TAB PO SCH (08:29)
[2019-04-29] MEDS: METOPROLOL SUCCINATE 25 MG TAB XL PO SCH ×2 (08:29→16:14)
[2019-04-29] MEDS: METOCLOPRAMIDE HCL 10 MG TAB PO SCH ×2 (08:29→15:30)
[2019-04-29] MEDS: PANTOPRAZOLE SOD 40 MG TABEC PO SCH (08:29)
[2019-04-29] MEDS: GABAPENTIN 300 MG CAP PO SCH ×2 (08:29→16:13)
[2019-04-29] MEDS: SENNOSIDES 8.6 MG TAB PO SCH ×2 (12:25→16:13)
[2019-04-29] MEDS ORDERED: ENOXAPARIN SOD INJ 40 MG/0.4 ML SYR SC SCH (17:00)
--- NOTE | 2019-04-29 17:28 | NUR ---
PATIENT'S MOTHER INQUIRED ON THE FENTANYL PATCH- RN INFORMED THE PATIENT AND HER MOTHER THAT THE FENTANYL PATCH (HOME MEDICATION) WAS NOT CONTINUED FROM THE HOME MEDICATION LIST. RN WAS GOING TO TAKE OFF CURRENT FENTANYL PATCH THAT IS LOCATED ON THE PATIENT'S RIGHT CHEST BUT PATIENT AND PATIENT'S MOTHER REFUSED FOR THE RN TO REMOVE THE PATCH. IV DILAUDID ADMINISTERED TO THE PATIENT REQUESTED BY THE PATIENT.
--- NOTE | 2019-04-29 19:15 | NUR ---
patient recieved awake, alert, lying quietly in bed. patient c/o right abd incisional pain. patient to be medicated for pain when pain medication is due. patient verbalizes understanding of this. pm assessment complete. dressing to right abd c,d,i. family noted at the bedside. patient/family instructed to call for assistance when needed.
--- NOTE | 2019-04-29 19:21 | NUR ---
PATIENT IN STABLE CONDITION WITH NO S/S OF RESPIRATORY DISTRESS. PATIENT C/O PAIN- IV DILAUDID NOT AVAILABLE AT THIS TIME. TELEMETRY APPLIED. BEATTY INTACT AND DRAINING. 02 APPLIED. CALL LIGHT IS WITHIN REACH, PATIENT INSTRUCTED TO CALL FOR ASSISTANCE NEEDED. MOTHER AND SISTER PRESENT IN ROOM. BEDSIDE REPORT GIVEN TO ONCOMING NURSE.
--- NOTE | 2019-04-29 19:30 | NUR ---
patient medicated with dilaudid 1mg ivp for c/o right abd incisional pain 03/11 per patients rerquest at this time.
[2019-04-29] MEDS: ATORVASTATIN 10 MG TAB PO SCH (20:41)
[2019-04-29] MEDS: QUETIAPINE FUMARATE 25 MG TAB PO SCH (20:41)
[2019-04-29] MEDS: AMITRIPTYLINE HCL 25 MG TAB PO SCH (20:41)
--- NOTE | 2019-04-29 23:00 | NUR ---
patient medicated with dilaudid 1mg ivp for c/o right abd incisional pain 03/11 per patients request at this time.
[2019-04-29] MEDS ORDERED: OXYCODONE/ACETAMINOPHEN 5-325 1 EACH TABLET PO PRN (23:15)
[2019-04-29] MEDS ORDERED: FENTANYL 50 MCG/HR PATCH TOP SCH (23:30)
[2019-04-30] VITALS: BP 108/58
[2019-04-30] MEDS ORDERED: FENTANYL 50 MCG/HR PATCH ONE (02:21)
[2019-04-30] MEDS: HYDROMORPHONE 1MG/1ML INJ IV PRN ×2 (02:25→08:07)
--- NOTE | 2019-04-30 02:25 | NUR ---
fentanyl 50mcg/hr pain patch applied to left upper chest. patient medicated with dilaudid 1mg ivp for c/o right abd pain 8/10 at this time per atients request. patient repositioned for comfort.
[2019-04-30 04:00] VITALS: BP 101/50
--- NOTE | 2019-04-30 06:00 | NUR ---
patient appears to be resting quietly. patient turned and repositioned q 2 hrs and prn throughout the night. no c/o pain noted at this time.
--- NOTE | 2019-04-30 07:10 | NUR ---
PATIENT RESTING IN BED- IN STABLE CONDITION WITH NO S/S OF RESPIRATORY DISTRESS. NO PAIN INDICATED BY PATIENT. TELEMETRY APPLIED. BEATTY INTACT AND DRAINING. 02 APPLIED. BED ALARM ON. CALL LIGHT IS WITHIN REACH, PATIENT INSTRUCTED TO CALL FOR ASSISTANCE NEEDED.
[2019-04-30] MEDS: INSULIN LISPRO 100 UNIT/1 ML 3ML VIAL SQ SCH ×3 (07:30→16:06)
[2019-04-30] MEDS ORDERED: HUMULIN 70/30 VIAL SQ SCH ×2 (07:30→17:00)
[2019-04-30 07:39] VITALS: BP 116/71
[2019-04-30] MEDS: DULOXETINE HCL 30 MG DELAYED RELEASE PO SCH (08:07)
[2019-04-30] MEDS: METOPROLOL SUCCINATE 25 MG TAB XL PO SCH (08:07)
[2019-04-30] MEDS: METOCLOPRAMIDE HCL 10 MG TAB PO SCH (08:07)
[2019-04-30] MEDS: COLCHICINE 0.6 MG TAB PO SCH (08:07)
[2019-04-30] MEDS: GABAPENTIN 300 MG CAP PO SCH (08:07)
[2019-04-30] MEDS: SENNOSIDES 8.6 MG TAB PO SCH (08:07)
[2019-04-30] MEDS: PANTOPRAZOLE SOD 40 MG TABEC PO SCH (08:07)
[2019-04-30] MEDS: DIVALPROEX SODIUM 125 MG TABDR...ER PO SCH (08:07)
[2019-04-30 08:39] VITALS: BP 116/71
[2019-04-30 11:18] VITALS: BP 100/57
--- NOTE | 2019-04-30 14:05 | NUR ---
PER DR. TALI THOMPSON TO LEAVE FENTANYL PATCH (ON PATIENT'S LEFT CHESTWALL) ON PATIENT FOR DISCHARGE HOME.
[2019-04-30] MEDS ORDERED: ONDANSETRON HCL 4 MG ORAL DISINTEGRATING TAB PO PRN (14:30)
--- NOTE | 2019-04-30 14:43 | NUR ---
CALLED AND SPOKE WITH DR. ROLLE REGARDING PATIENT'S BEATTY. DR. ROLLE ORDERED FOR PATIENT TO DISCHARGE WITH BEATTY AND FOLLOW UP WITH HIM AND UROLOGY DIRECTED. RECEIVED ORDER TO CANCEL "DC BEATTY" ORDER THAT ON FILE.
[2019-04-30 15:36] VITALS: BP 114/66
--- NOTE | 2019-04-30 16:56 | NUR ---
PATIENT DISCHARGE AT 1648 PER WHEELCHAIR ACCOMPANIED BY RN AND PCT TO THE FRONT LOBBY. PATIENT IN STABLE CONDITION WITH NO S/S OF RESPIRATORY DISTRESS-NO PAIN VOICED. IV REMOVED WITH TIP INTACT. BEATTY IN PLACE AND DRAINING. FENTANYL APPLIED TO LEFT CHEST WALL. DISCHARGE TEACHING, INSTRUCTIONS, AND MEDICATION GIVEN TO THE PATIENT AND HER MOTHER. ALL PERSONAL ITEMS TAKEN WITH THE PATIENT AND HER MOTHER.
[2019-05-01] MEDS ORDERED: ERGOCALCIFEROL 50,000 UNIT CAP PO SCH (09:00)
--- NOTE | 2019-05-01 11:46 | Discharge Summary ---
ADMISSION DIAGNOSES: Perforated colon, status post colostomy. DISCHARGE DIAGNOSIS: Perforated colon, status post colostomy. PRINCIPAL PROCEDURE: Closure of colostomy with partial colon resection. HISTORY OF PRESENT ILLNESS: The patient is a 44-year-old female, previous colon resection, developed perforation of the colon where it was resected requiring a proximal colostomy. Preop imaging revealed no evidence of fistula from the colon. HOSPITAL COURSE: The patient admitted to the hospital, underwent surgery same day as admission. She had closure of the colostomy with partial colon resection. Postoperatively, the patient was started on a clear liquid diet on first postop day, which she tolerated without problem. Diet was advanced to regular diet. Bowel function returned to normal. She was passing flatus and had a bowel movement. Wound remained clean. She was discharged home on the 3rd postop day. At time of discharge, she is afebrile. Wound was clean. Tolerating diet with normal bowel function. She has a chronic Tillman catheter and was sent home with Tillman catheter in place. DISCHARGE MEDICATIONS: [place] for pain. She will continue on all her same home medications as she took prior to admission. FOLLOWUP: She will follow up with Dr. Mcgee in approximately one week after discharge. DISPOSITION: Sent home in satisfactory condition on a diabetic diet. MD NATALIIA Tavarez/JOHNATHAN /[id number]
== END 2019-04-30 16:48 | disposition home or self-care (01) | DRG 330 ==
LOC: OR 09:36 → PACU V 13:14 → MED/SURG3 15:18
PROVIDERS: ADMIT Surgery; ATTEND Surgery
PROC: 0DBE0ZZ Excision of Large Intestine, Open Approach (ICD-10-PCS; principal; 2019-04-27 11:59)
DX: Z43.3 Encounter for attention to colostomy (principal); I69.351 Hemiplegia and hemiparesis following cerebral infarction affecting right dominant side; Z79.84 Long term (current) use of oral hypoglycemic drugs; K76.0 Fatty (change of) liver, not elsewhere classified; F32.9 Major depressive disorder, single episode, unspecified; K20.9 Esophagitis, unspecified; E11.22 Type 2 diabetes mellitus with diabetic chronic kidney disease; I12.9 Hypertensive chronic kidney disease with stage 1 through stage 4 chronic kidney disease, or unspecified chronic kidney disease; N18.9 Chronic kidney disease, unspecified; J44.9 Chronic obstructive pulmonary disease, unspecified; Z83.3 Family history of diabetes mellitus; Z88.8 Allergy status to other drugs, medicaments and biological substances; Z87.891 Personal history of nicotine dependence
CPT/HCPCS: 36415; 80048; 80053; 82948; 85025; 86850; 86900; 88304; 88307; 93005; 96361; 97139; J0694; J1100; J1170; J1650; J2001; J2250; J2405; J3010; J7030

== ENCOUNTER 2019-05-02 20:24 | Inpatient (IN) | payer BC ==
[~2019-05-02] VITALS: Ht 172.7 cm; Wt 103.9 kg
--- NOTE | 2019-05-02 20:43 | NUR ---
DR. HUA AT BEDSIDE FOR EVAL.
[2019-05-02 20:54] LABS: BASOPHILS # (AUTO) 0.1 (0.0-0.1); BASOPHILS % 0.7 % (0.0-1.0); EOSINOPHILS # (AUTO) 0.8 (0.0-0.4); EOSINOPHILS % 7.5 % (0.0-6.0); HEMOGLOBIN 10.8 g/dL (12.0-16.0); LYMPHOCYTES # (AUTO) 1.6 (1.0-3.2); LYMPHOCYTES % 15.1 % (18.0-39.1); MEAN CORPUSCULAR HEMOGLOBIN 25.9 pg (28-32); MEAN CORPUSCULAR HGB CONC 30.9 g/dL (31-35); MEAN CORPUSCULAR VOLUME 83.9 fL (81-99); MONOCYTES # (AUTO) 1.4 (0.2-0.8); MONOCYTES % 12.6 % (4.4-11.3); NEUTROPHILS # (AUTO) 6.9 (2.1-6.9); NEUTROPHILS % 63.6 % (38.7-80.0); PLATELET COUNT 303 x10e3/uL (140-360); RED BLOOD COUNT 4.17 x10e6/uL (3.6-5.1)
[2019-05-02 21:06] LABS: INR 1.11; PROTHROMBIN TIME 14.8 seconds (11.9-14.5)
[2019-05-02 21:14] LABS: ALBUMIN 2.7 g/dL (3.5-5.0); ALBUMIN/GLOBULIN RATIO 0.6 (0.8-2.0); ANION GAP 16.5 mmol/L (8-16); CALCIUM 8.8 mg/dL (8.4-10.2); CREATININE, SERUM 2.12 mg/dL (0.57-1.11); POTASSIUM 3.5 mmol/L (3.5-5.1)
[2019-05-02 21:25] LABS: CREATINE KINASE MB 0.9 ng/mL (0-5.0)
[2019-05-02] MEDS ORDERED: SODIUM CHLORIDE 0.9% 1000ML 1,000 ML IV SCH (21:30)
[2019-05-02 21:54] LABS: BILIRUBIN,URINE NEGATIVE (NEGATIVE); CLARITY,URINE SL CLOUDY (CLEAR); COLOR,URINE YELLOW (YELLOW); KETONES,URINE NEGATIVE (NEGATIVE); LEUKOCYTE ESTERASE ,URINE MODERATE (NEGATIVE); NITRITE,URINE POSITIVE (NEGATIVE); PROTEIN,URINE DIPSTICK 2+ (NEGATIVE); URINE UROBILINOGEN 0.2 mg/dL (0.2 - 1)
[2019-05-02 22:10] LABS: BACTERIA,URINE MODERATE /HPF; EPITHELIAL CELLS,URINE RARE /LPF; WBC,URINE (MAN) >50 /HPF (0-5)
[2019-05-02] MEDS ORDERED: HEPARIN SOD (PORCINE) 5,000 UNIT/ML VIAL IV ONE (22:15)
[2019-05-02] MEDS ORDERED: MORPHINE SULFATE INJ 4 MG/ML INJ 1ML ONE (23:05)
[2019-05-02] MEDS ORDERED: ONDANSETRON HCL INJ 2MG/ML 2ML 2 MG/ML VIAL ONE (23:05)
[2019-05-02] MEDS ORDERED: ONDANSETRON HCL INJ 2MG/ML 2ML 2 MG/ML VIAL IV STA (23:11)
[2019-05-02] MEDS ORDERED: MORPHINE SULFATE 5 MG/ML VIAL IV ONE (23:15)
[2019-05-03] VITALS (18 sets, daily range): BP systolic 95–120; BP diastolic 51–76
--- NOTE | 2019-05-03 00:13 | Diagnostic Imaging Report ---
EXAMINATION: CT of the abdomen and pelvis without contrast. TECHNIQUE: Spiral CT images of the abdomen and pelvis were performed from the lung bases to the lesser trochanters. No intravenous contrast was given per referring physician request. Coronal and sagittal reformatted images were obtained. COMPARISON: CT abdomen and pelvis without contrast 12/01/2018. CLINICAL HISTORY:Colostomy reversal 04/27/2019, abdominal pain, tachycardia DISCUSSION: ABSENCE OF INTRAVENOUS CONTRAST DECREASES SENSITIVITY FOR DETECTION OF FOCAL LESIONS AND VASCULAR PATHOLOGY. ABDOMEN/PELVIS: LOWER THORAX: Small left pleural effusion. Consolidation of the lateral segment of the right middle lobe. Bandlike opacities in the bilateral lower lobes. HEPATOBILIARY:No focal hepatic lesion or intrahepatic biliary ductal dilatation. The gallbladder is collapsed. SPLEEN: No splenomegaly. PANCREAS: No focal masses or ductal dilatation. ADRENALS: No adrenal nodules. KIDNEYS/URETERS: Left extrarenal pelvis without overt hydronephrosis. No focal renal lesions. Punctate nonobstructing calculus in the lower pole of the left kidney, unchanged compared to prior. Left ureteral stent has been removed. PELVIC ORGANS/BLADDER: The urinary bladder is collapsed around a Tillman catheter. Uterus is not identified and has presumably been removed. PERITONEUM/RETROPERITONEUM: No ascites. No pneumoperitoneum. LYMPH NODES: No pelvic sidewall, retroperitoneal, or mesenteric lymphadenopathy. VESSELS: Limited evaluation without intravenous contrast. There is atherosclerotic calcification of the abdominal aorta and major branch vessels without aneurysmal dilatation. GI TRACT: Anastomotic suture line at the upper rectum. There is gas and fecal material throughout the visualized large bowel. Intact suture line along the proximal transverse colon. The cecum and ascending colon are distended and fluid-filled. The stomach is unremarkable. There is no small bowel dilatation to suggest obstruction. BONES AND SOFT TISSUES: The bones are diffusely osteopenic. Surgical hardware at L3, L4, and L5, unchanged. Unchanged mild anterior compression deformity of L1. Mild anasarca. Right upper quadrant skin gretel with underlying subcutaneous edema and a rectus defect presumably related to recent bowel surgery. IMPRESSION: Postsurgical changes of probable right upper quadrant colostomy takedown and reanastomosis, with expected subcutaneous and intraperitoneal inflammatory changes. No free pelvic fluid to suggest anastomotic leak, and no pneumoperitoneum to suggest perforation per clinical query. Distended, fluid-filled cecum may reflect postsurgical ileus. No findings of small bowel obstruction. Signed by: Dr. Ej Rocha M.D. on 05/03/2019 12:10 AM
[2019-05-03] MEDS ORDERED: AMPICILLIN TRI500 MG PO (01:02)
[2019-05-03] MEDS ORDERED: ONDANSETRON HCL4 MG PO (01:02)
[2019-05-03] MEDS ORDERED: LORAZEPAM0.5 MG PO (01:02)
[2019-05-03] MEDS: ONDANSETRON HCL INJ 2MG/ML 2ML 2 MG/ML VIAL IV PRN ×2 (01:45→08:56)
[2019-05-03] MEDS: MORPHINE SULFATE INJ 4 MG/ML INJ 1ML IV PRN ×2 (01:45→09:03)
--- NOTE | 2019-05-03 02:00 | NUR ---
ON OUR WAY BACK FROM [place], WE MET UP WITH DR CESAR, WHERE AN ASSESMENT WAS DONE. HE TOLD THE PT THAT WE WOULD KEEP ON MONITORING HER FROM ICU. NO NEW ORDERS RECEIVED.
--- NOTE | 2019-05-03 02:31 | Consultation ---
DATE OF CONSULTATION: 05/03/2019 HISTORY OF PRESENT ILLNESS: The patient is a 44-year-old female with multiple medical problems, who had surgery about a week ago. She had reversal of colostomy done. She was home for a few days and then return to the hospital today with complaints of shortness of breath and was found to have tachycardia. She is noted to have abdominal distention in the emergency room. She has been evaluated with CT scan of the abdomen and pelvis, which revealed some dilated colon, but no other abnormalities seen. No sign of anastomotic leak or serous intraabdominal findings on the CT scan. The patient does complain of some abdominal pain. She has not had any definite fever. She did have a bowel movement while in the emergency room. PAST MEDICAL HISTORY: Significant for multiple medical problems, history of diabetes, hypertension, previous cerebrovascular accident with aphasia, chronic kidney disease, peripheral neuropathy, gastroesophageal reflux disease. She has had multiple previous surgeries include back surgery, knee surgery, section, hysterectomy, appendectomy, sigmoid colon resection, which required repair of the ureter at that time and also she had a transverse colostomy done at that time. The ureter healed without any trouble and she had a recent reversal of her colostomy as stated in the history of present illness. MEDICATIONS: At home were listed in the chart. ALLERGIES: SHE HAS ALLERGIES TO DAPTOMYCIN, LYRICA, PREDNISONE AND SOMA. FAMILY HISTORY: Significant for chronic kidney disease. SOCIAL HISTORY: The patient smokes cigarettes. Does not drink alcohol. REVIEW OF SYSTEMS: Cannot be obtained. PHYSICAL EXAMINATION: GENERAL: The patient is awake and alert. VITAL SIGNS: Reveal a heart rate of 106 at this time, blood pressure is normal, O2 saturation with supplemental oxygen is 98%. HEENT: There was no scleral icterus. Neck had no masses. LUNGS: Decreased breath sounds at the left base. CARDIAC: Regular rate and rhythm. ABDOMEN: Distended with some tenderness in the upper abdomen. Surgical wound is intact and clean. EXTREMITIES: Had slight edema. NEUROLOGIC: Reveals left hemiplegia and aphasia. LABORATORY DATA: White blood cell count 10.87, hemoglobin 10.8, hematocrit 35. Chemistries, elevated creatinine of 2.12, with a baseline creatinine around 1.2. Electrolytes otherwise were normal. ASSESSMENT: A 44-year-old female with findings of some tachycardia and tachypnea concerning for pulmonary embolus. She is to be evaluated with V/Q scan and started on anticoagulation. Abdominal findings are most suggestive of colonic ileus at this time and no findings that would warrant immediate surgical intervention. Recommend keeping the patient n.p.o. with IV fluids. We then treat her underlying medical condition as has been ordered. Thank you for asking me to see Ms. De Leon. MD NATALIIA Tavarez/JOHNATHAN /[id number]
--- NOTE | 2019-05-03 02:46 | Diagnostic Imaging Report ---
Ventilation/perfusion lung scan Clinical Information: Shortness of breath, concern for pulmonary embolus Comparison: CT abdomen and pelvis 05/02/2019, chest radiograph 03/18/2019 Discussion: Xenon-133 gas 21 mCi was administered via inhalation. Dynamic images of the lungs in the posterior projection were obtained through single breath, equilibrium, and washout phases. Distribution of tracer activity appears physiologic throughout the upper lungs, with diminished ventilation in the left lower lung, related to pleural effusion on comparison CT. There are no segmental ventilatory defects. Washout of tracer is normal with no evidence of air trapping. Perfusion images of the lungs were obtained in multiple projections following intravenous administration of approximately 6.6 mCi of Tc-99m MAA. Distribution of tracer appears physiologic throughout the lungs, again with the exception of the left lower lung, with diminished distribution of tracer. The contours of the lungs are well demarcated. There are no segmental perfusion defects of any size. The cardiomediastinal silhouette is unremarkable. Impression: Nonsegmental matched ventilation and perfusion defect in the left lung base related to pleural effusion seen on comparison CT abdomen and pelvis 05/02/2019. 1. Scan findings represent a LOW probability for acute pulmonary embolic disease based on the PIOPED II criteria. Signed by: Dr. Ej Rocha M.D. on 05/03/2019 2:42 AM
[2019-05-03 03:04] LABS: BASOPHILS # (AUTO) 0.1 (0.0-0.1); BASOPHILS % 0.8 % (0.0-1.0); EOSINOPHILS # (AUTO) 0.7 (0.0-0.4); HEMATOCRIT 32.2 % (34.2-44.1); LYMPHOCYTES # (AUTO) 1.8 (1.0-3.2); LYMPHOCYTES % 17.9 % (18.0-39.1); MEAN CORPUSCULAR HEMOGLOBIN 25.9 pg (28-32); MEAN CORPUSCULAR HGB CONC 31.1 g/dL (31-35); MEAN CORPUSCULAR VOLUME 83.4 fL (81-99); MONOCYTES # (AUTO) 1.4 (0.2-0.8); MONOCYTES % 14.1 % (4.4-11.3); NEUTROPHILS % 59.8 % (38.7-80.0); PLATELET COUNT 279 x10e3/uL (140-360); RED BLOOD COUNT 3.86 x10e6/uL (3.6-5.1); RED CELL DISTRIBUTION WIDTH 18.1 % (11.7-14.4)
[2019-05-03 03:15] LABS: ALBUMIN 2.5 g/dL (3.5-5.0); ALBUMIN/GLOBULIN RATIO 0.5 (0.8-2.0); ANION GAP 13.4 mmol/L (8-16); CALCIUM 8.5 mg/dL (8.4-10.2); CREATININE, SERUM 1.88 mg/dL (0.57-1.11); POTASSIUM 3.4 mmol/L (3.5-5.1)
[2019-05-03] MEDS: CEFTRIAXONE SOD 1 GM/NS 50 ML 50 ML IV SCH (04:55)
[2019-05-03 06:04] LABS: BASOPHILS # (AUTO) 0.1 (0.0-0.1); BASOPHILS % 0.6 % (0.0-1.0); EOSINOPHILS # (AUTO) 0.7 (0.0-0.4); EOSINOPHILS % 7.7 % (0.0-6.0); HEMATOCRIT 32.5 % (34.2-44.1); HEMOGLOBIN 10.1 g/dL (12.0-16.0); LYMPHOCYTES # (AUTO) 1.8 (1.0-3.2); LYMPHOCYTES % 19.2 % (18.0-39.1); MEAN CORPUSCULAR HEMOGLOBIN 26.3 pg (28-32); MEAN CORPUSCULAR HGB CONC 31.1 g/dL (31-35); MEAN CORPUSCULAR VOLUME 84.6 fL (81-99); MONOCYTES # (AUTO) 1.3 (0.2-0.8); NEUTROPHILS # (AUTO) 5.4 (2.1-6.9); NEUTROPHILS % 58.2 % (38.7-80.0); PLATELET COUNT 255 x10e3/uL (140-360); RED BLOOD COUNT 3.84 x10e6/uL (3.6-5.1)
[2019-05-03] MEDS: METRONIDAZOLE 500MG/NS 100ML 100 ML IV SCH ×3 (06:06→22:50)
[2019-05-03 06:27] LABS: ANION GAP 12.2 mmol/L (8-16); CALCIUM 8.5 mg/dL (8.4-10.2); CREATININE, SERUM 1.76 mg/dL (0.57-1.11); POTASSIUM 3.2 mmol/L (3.5-5.1)
--- NOTE | 2019-05-03 12:00 | NUR ---
Informed credit charge authorizer that family requests to speak with him regarding Dr Mcgee rounding and assessing patient. Unable to speak with family, casting house laborer called. Directed to call attending.
--- NOTE | 2019-05-03 12:15 | NUR ---
[address] Schaeffer who states we will discuss consulting a surgeon when he rounds.
--- NOTE | 2019-05-03 12:45 | NUR ---
Rapid Response called. Patient refusing to wear nasal cannula, pale and O2 sats 76%.
--- NOTE | 2019-05-03 13:00 | NUR ---
Dr Rivera aware of consult.
--- NOTE | 2019-05-03 13:15 | NUR ---
Dr Schaeffer to bedside.
[2019-05-03] MEDS ORDERED: LORAZEPAM INJ 2 MG/ML VIAL ONE (13:29)
[2019-05-03] MEDS ORDERED: D5NS/KCL 20MEQ 1,000 ML IV SCH (13:45)
[2019-05-03] MEDS ORDERED: LORAZEPAM INJ 2 MG/ML VIAL IV ONE (14:00)
[2019-05-03] MEDS ORDERED: LORAZEPAM INJ 2 MG/ML VIAL IV PRN (14:00)
[2019-05-03 14:12] LABS: BASOPHILS # (AUTO) 0.1 (0.0-0.1); BASOPHILS % 0.7 % (0.0-1.0); EOSINOPHILS # (AUTO) 0.6 (0.0-0.4); EOSINOPHILS % 7.7 % (0.0-6.0); HEMATOCRIT 34.2 % (34.2-44.1); HEMOGLOBIN 10.5 g/dL (12.0-16.0); MEAN CORPUSCULAR HEMOGLOBIN 25.8 pg (28-32); MEAN CORPUSCULAR HGB CONC 30.7 g/dL (31-35); MONOCYTES % 12.6 % (4.4-11.3); NEUTROPHILS # (AUTO) 5.4 (2.1-6.9); NEUTROPHILS % 66.5 % (38.7-80.0); PLATELET COUNT 268 x10e3/uL (140-360); RED BLOOD COUNT 4.07 x10e6/uL (3.6-5.1); RED CELL DISTRIBUTION WIDTH 18.1 % (11.7-14.4)
[2019-05-03] MEDS ORDERED: MORPHINE SULFATE 2 MG/ML SYR 1ML IV PRN (14:30)
[2019-05-03 14:32] LABS: ANION GAP 14.9 mmol/L (8-16); CALCIUM 8.7 mg/dL (8.4-10.2); CREATININE, SERUM 1.64 mg/dL (0.57-1.11); POTASSIUM 3.9 mmol/L (3.5-5.1)
--- NOTE | 2019-05-03 14:32 | Diagnostic Imaging Report ---
A single frontal view of the chest. HISTORY: Shortness of breath, respiratory distress COMPARISON: Chest radiograph March 18, 2019 DISCUSSION: Portable technique, limits sensitivity of the exam. Soft tissue attenuation partially limits sensitivity of the exam. Overlying monitoring leads. Tubes/Lines: None Lungs and pleura: Low lung volumes result in bibasilar vascular crowding, accentuation of the pulmonary interstitial markings, central pulmonary vasculature, and the cardiac silhouette. Allowing for these limitations, the findings are as follows: Bibasilar atelectasis. Small left pleural effusion. Diffusely increased pulmonary interstitial markings. No definite pleural effusion or pneumothorax is identified. Heart and mediastinum: The cardiac silhouette appear(s) and central pulmonary vasculature appear enlarged. Bones and soft tissues: Appear unremarkable, given this limited exam. IMPRESSION: 1. Small left pleural effusion and bibasilar atelectasis. 2. Probable volume overload resulting in central pulmonary vascular congestion and moderate pulmonary edema. 3. Superimposed pneumonia or aspiration may be a consideration the appropriate settings. Signed by: Dr. Scott Hermosillo D.O., M.M.M. on 05/03/2019 2:29 PM
[2019-05-03] MEDS: VANCOMYCIN 1GM/NS 250 ML 250 ML IV SCH (14:44)
[2019-05-03] MEDS ORDERED: ALBUTEROL/IPRATROPIUM 3 ML NEB NEB PRN (15:00)
[2019-05-03] MEDS ORDERED: DEXTROSE 50% SYRINGE 50 ML IV PRN (15:00)
[2019-05-03] MEDS: FUROSEMIDE INJ 10 MG/ML 4 ML VIAL IV SCH ×2 (15:43→22:50)
[2019-05-03] MEDS: DULOXETINE HCL 30 MG DELAYED RELEASE PO SCH (16:58)
[2019-05-03] MEDS: METOCLOPRAMIDE HCL 10 MG TAB PO SCH (17:00)
[2019-05-03] MEDS: DIVALPROEX SODIUM 125 MG TABDR...ER PO SCH (17:00)
[2019-05-03] MEDS: ENOXAPARIN SOD INJ 40 MG/0.4 ML SYR SC SCH (17:19)
--- NOTE | 2019-05-03 17:19 | NUR ---
Per juan Logan to give PO meds.
[2019-05-03] MEDS: GABAPENTIN 300 MG CAP PO SCH (20:09)
[2019-05-03] MEDS: HYDROMORPHONE 1MG/1ML INJ IV PRN (20:10)
--- NOTE | 2019-05-03 21:09 | History and Physical ---
CHIEF COMPLAINT: Shortness of breath. HISTORY OF PRESENT ILLNESS: This is a patient of Dr. Jean Marie Palacios. I am covering for him. A 44-year-old female, morbidly obese, who has a history of hyperlipidemia, depression, peripheral neuropathy, type 2 diabetes, chronic pain syndrome. Reportedly, comes into the emergency room department with complaints of shortness of breath, ongoing for the last two or three days. The patient was recently discharged here from the [facility] after having a recent reversal of her colostomy performed by General Surgery, Dr. Mcgee. She did well when she got discharged and had no issues, but when she went home she started having this shortness of breath that began acute onset. No reports of any cough, congestion, fever, or any chest pain. She also reports having increased abdominal distention, decreased flatus, decreased oral intake, but no nausea, no vomiting. On arrival here to the emergency room, she was found to be very tachypneic in which her V/Q scan was performed and found to be low probability of a pulmonary embolism. CT imaging of abdomen and pelvis revealed dilated colon, but no other abnormality seen. There is no evidence of anastomotic leak or serous intraabdominal findings on CT scan. The patient was evaluated by General Surgery on admission and did not recommend any NG tube placement. The patient was still complaining of abdominal pain, but no evidence of any fever or white count. During my evaluation, the patient was very combative, refusing nasal cannula. We called the family and they were present at bedside. They decided to come to be present at bedside and convince the patient to wear a BiPAP. The patient has a history of chronic pain syndrome and was demanding pain medications. Overall, patient's baseline is aphasic from prior CVAs in the past. I had a long discussion with the medical power of truant officer's, who were present at bedside. The patient agreed to BiPAP. An ICU attending has been consulted. The family now does not want Dr. Mcgee as her general surgeon. I suggested Dr. Rizo and they do not want him either. At this time, it was up to the family to find another general surgeon, who is willing to see Ms. De Leon. Currently at this moment, her vital signs are stable. She is on BiPAP and she is doing very well. Pain medications were given. REVIEW OF SYSTEMS: Pertinent positive: Tachypnea, abdominal distention, abdominal pain. Pertinent negatives: Denies any chest pain, palpitation, nausea, vomiting, diarrhea, dysuria, hematuria, frequency, urgency, lightheadedness, dizziness, headache, cough, congestion, fever, or any other complaints. The rest of 14-point review of systems have been reviewed with the patient and are negative. ALLERGIES: SOMA, DAPTOMYCIN, PREDNISONE AND PREGABALIN. HOME MEDICATIONS: Amitriptyline, aspirin, Lipitor, colchicine, Cymbalta, Fentanyl patch, gabapentin, lorazepam, Protonix, Seroquel, Reglan, divalproex, Percocet, and Novolin 70/30. PAST MEDICAL HISTORY: Diabetes, hypertension, CVA in the past with baseline aphasia, CKD, peripheral neuropathy, acid reflux, chronic pain syndrome, recent colostomy reversal. PAST SURGICAL HISTORY: Back surgery, knee surgery, C-sections, hysterectomy, appendectomy, sigmoid colon resection, had a transverse colectomy, now has a recent reversal of her colostomy. She also had a ureter repaired at the time of her transverse colostomy. FAMILY HISTORY: Known for diabetes, hypertension, chronic kidney disease. SOCIAL HISTORY: No drugs. No alcohol. She does smoke. Has several family members. PHYSICAL EXAMINATION: VITAL SIGNS: Temperature is 98.9, pulse 90, respiratory rate is 20, blood pressure 105/57, pulse ox 100%. She is on BiPAP during my evaluation. GENERAL: She is alert, but very combative on examination, noncooperative until family was present, was able to listen to the family. HEENT: Head; normocephalic and atraumatic. Eyes; pupils are equal, round, and reactive to light bilaterally. Extraocular movements are intact bilaterally. Throat; has poor dentition. NECK: Supple. Good range of motion. PULMONARY: Positive rales, fine crackles appreciated. CARDIOVASCULAR: Positive S1 and S2. No murmurs, rubs, or gallops appreciated. ABDOMEN: Distended. She did have some tender to palpation, has gretel around her abdomen incision. MUSCULOSKELETAL: The patient was not cooperative with this exam. NEUROLOGIC: She is aphasic, noncooperative with this exam. SKIN: Intact. Warm to touch. Good cap refill. PSYCHIATRIC: She is aphasic, very combative, noncooperative. LABORATORY DATA: Lab findings show on admission, white count 10.18 downtrended to 8.1, hemoglobin 10.5, hematocrit 34, platelets of 268. Coagulation; PT 14, INR 1.1, PTT 32. Urinalysis concerning for underlying UTI. Chemistry; sodium 140, potassium 3.9, chloride 103, bicarbonate 26, anion gap of 14, BUN 20, creatinine is 1.64. Lactic acid was found to be normal 8.3 at this hospital. Calcium is 8.3, glucose is 128. Troponins were negative. Albumin was 2.5. Procalcitonin is pending. LFTs were within normal range. MICROBIOLOGY: Blood and urine cultures are pending. IMAGING STUDIES: V/Q scan consistent with low probability for any acute pulmonary embolic disease. CT abdomen and pelvis shows postsurgical changes of probable right upper quadrant colostomy takedown and reanastomosis with expected subcutaneous and intraperitoneal inflammatory changes. No free and no pneumoperitoneum to suggest perforation for clinical query. Distended fluid-filled cecum may reflect postsurgical ileus. No findings of small-bowel obstruction. Chest x-ray performed this afternoon shows small left pleural effusion, bibasilar atelectasis. Probable volume overload resulting in central pulmonary vascular congestion and moderate pulmonary edema. Superimposed pneumonia or aspiration may be consideration as well. IMPRESSION: 1. Acute respiratory distress with concern for underlying pulmonary edema. 2. Abdominal pain with probable abdominal wall cellulitis. 3. Recent status post reversal colostomy performed by General Surgery. 4. Probable urinary tract infection. 5. Acute kidney injury, likely secondary to dehydration. 6. Type 2 diabetes. 7. Hypertension. 8. Chronic pain syndrome. 9. History of psychiatric disorders. 10. History of cerebrovascular accident in the past at baseline, aphasic. PLAN: At this time, in terms of her respiratory status, recent chest x-ray shows pulmonary edema. I will go ahead and decrease the IV fluids and give her some IV diuretics as well. I did consult with Pulmonary Critical Care. She currently has a BiPAP and agreed to wear it so long as the family is at bedside. She refuses an ABG despite trying several attempts. We will put her on DuoNeb treatments as needed. In relation to her abdominal pain, CT findings of the abdomen and pelvis were noted. It seems to be normal findings according to General Surgery's note. He does not recommend an NG tube at this time. The dilemma now is that the family fired Dr. Mcgee and refuses Dr. Rizo and currently we do not have a surgeon, who is going to come and evaluate the patient. I discussed this with the medical [id number] and she could not give me an answer and it will be very difficult for an additional surgeon to come and evaluate this patient for a different opinion, but at this time once the family provides me a surgeon, who is willing to come see her, I will be more than happy to consult with them. At this time, I would recommend continuing with Dr. Mcgee until we were able to get a different surgeon to come evaluate the patient. I reiterated that with the family, they seem to understand that plan of care as well. Also, she may have probable urinary tract infection. She is currently on IV antibiotics for possible underlying intra abdominal etiology with Cipro and Flagyl and I also added vancomycin for probable abdominal wall cellulitis as well. Blood and urine cultures are pending. She was found to be in acute kidney injury likely due to decreased oral intake and dehydration in which her creatinine is now downtrending with fluid hydration. She will get some Lasix as well due to pulmonary edema. In relation to her diabetes, I will put her on insulin sliding scale. Currently, her blood pressure is stable. I am going to hold all her blood pressure medications. I will go ahead and restart all her psych medications as well. In relation to her chronic pain syndrome, I will restart some of her pain medications, but try to avoid any hypotension as well. She is being covered with broad-spectrum antibiotics as well and consultants with Pulmonary Critical Care and General Surgery. I will put her on Lovenox for DVT prophylaxis as well. She is currently n.p.o. We will go ahead and get speech therapy. Otherwise, we will continue to follow with all the consultants. I discussed plan of care with medical [id number], the patient and the family at bedside including the nursing staff. MD JENNIFER Beltrán/JOHNATHAN /[id number]
--- NOTE | 2019-05-03 21:19 | Consultation ---
DATE OF CONSULTATION: 05/03/2019 Pulmonary and Critical Care Medicine Consult REASON FOR REFERRAL: Acute respiratory failure. HISTORY OF PRESENT ILLNESS: Mrs. De Leon is a pleasant 44-year-old female with a complex preceding medical history with acute respiratory failure. The patient had surgery 1 week ago with reversal of colostomy. The patient went home for a few days. The patient was having increasing shortness of breath and tachycardia. No concomitant, mild abdominal distention in the emergency room. Emergency CT abdomen and pelvic was consistent with possible ileus. No evidence of abscess. The patient with apparent intact colon, although there was distention of the bowel. The patient was admitted to the hospital. She became gradually short of breath. The patient became emotional. She started to have hyperventilation. Her oxygen saturation went down to 70%, she became pale, at that time, rapid response was called. The patient was offered intubation, but refused at that point. I am consulted. PAST MEDICAL HISTORY: Diabetes, hypertension, previous CVA in December 2017, with aphasia and mild right-sided weakness, then in october 2018, repeat CVA with more profound right-sided weakness, cirrhosis due to hemochromatosis, CKD, peripheral neuropathy, GERD. Back surgery, knee surgery, , hysterectomy, appendectomy, sigmoid colon resection, which required repair of the ureter at that time and also transverse colostomy done at that time. Ureter healed without trouble. Recent reversal of colostomy. MEDICATIONS: Medication list reviewed per the chart record. ALLERGIES: DAPTOMYCIN, LYRICA, PREDNISONE, SOMA. FAMILY HISTORY: Noncontributory. SOCIAL HISTORY: The patient smokes cigarettes 1/2 pack a day from age 15 to 44. No heavy alcohol. No drugs. 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 REVIEW OF SYSTEMS: Cannot be obtained as the patient on BiPAP emergently. OBJECTIVE: VITAL SIGNS: Afebrile, vital signs are noted and reviewed per the chart record. Tachycardia 110. GENERAL: On respiratory support device, in bed, secondary muscles use to breathe. HEENT: Normocephalic, atraumatic. NECK: Supple. Throat, midline. LUNGS: Bilateral air entry, decreased breath sounds at bases, rare rhonchi. CARDIOVASCULAR: S1, S2. No murmurs, rubs, or gallops. ABDOMINAL: Soft, nontender. EXTREMITIES: No clubbing. No cyanosis. There is 1+ edema of the legs, painful to touch. INTEGUMENT: No rash. No purpura. LABORATORY DATA: Labs were reviewed per the chart record. 1.76 creatinine. V/Q with low probability for PE. IMPRESSION AND PLAN: 1. Acute respiratory failure, BiPAP salvage. 2. Suspect chronic cardiopulmonary disease. 3. Obesity, chance of obesity hypoventilation. 4. Abdominal distention, worsen by ileus. 5. Odynophagia, cannot rule out obstructive sleep apnea or even hypoventilation. 6. Decreased lung volumes on chest radiography, chronic. Obesity hypoventilation definitely to be considered. 7. History of aphagia, possible upper airway, laryngeal palsies, or dystonia. 8. Debility, chronic. Chronic right-sided dense hemiparesis. The patient walks 1 to 2 rooms with a walker now. 9. Abnormal chest radiography, left-sided pleural effusion, possibly small. 10. Postoperative stay, status post reversal of colostomy 1 week ago. 11. Postoperative ileus. 12. Diabetes, hypertension, history of two cerebrovascular accidents, chronic kidney disease, peripheral neuropathy, gastroesophageal reflux disease. 13. History of cirrhosis due to hemochromatosis. 14. Chronic smoker. Continue BiPAP salvage. Continue diuretics. Bronchodilators as needed. We will consider steroids to be used, but it was felt that the patient will continue to improve. Early mobilization will be helpful for the postoperative ileus. Based on serial abdominal exams, consideration will be given if the patient requires any suppository. We will follow along closely. Outpatient testing is definitely indicated at multiple levels. Repeat chest x-ray tomorrow, make sure the pleural effusion is not worsening. Greater than 30 minutes in direct care and coordination performed today. Time spent with family and nursing to review issues. Thank you very much for this consult. Please call with questions. MD MILTON Martin/JOHNATHAN /[id number]
[2019-05-03] MEDS ORDERED: BISACODYL 10 MG SUPP PR PRN (21:30)
[2019-05-03] MEDS: AMITRIPTYLINE HCL 25 MG TAB PO SCH (22:50)
[2019-05-03] MEDS: ATORVASTATIN 10 MG TAB PO SCH (22:50)
[2019-05-03] MEDS ORDERED: POTASSIUM CHLORIDE 20MEQ/100ML 200 ML IV ONE (23:00)
[2019-05-04] VITALS (26 sets, daily range): BP systolic 109–150; BP diastolic 41–105
[2019-05-04] MEDS: CEFTRIAXONE SOD 1 GM/NS 50 ML 50 ML IV SCH (01:00)
[2019-05-04] MEDS ORDERED: SODIUM CHLORIDE 0.9% 250ML 250 ML ONE ×3 (01:15→22:15)
[2019-05-04] MEDS: HYDROMORPHONE 1MG/1ML INJ IV PRN ×4 (01:30→20:54)
[2019-05-04 05:33] LABS: BASOPHILS # (AUTO) 0.1 (0.0-0.1); BASOPHILS % 0.9 % (0.0-1.0); EOSINOPHILS # (AUTO) 0.6 (0.0-0.4); EOSINOPHILS % 9.1 % (0.0-6.0); HEMATOCRIT 32.9 % (34.2-44.1); HEMOGLOBIN 10.3 g/dL (12.0-16.0); LYMPHOCYTES % 14.2 % (18.0-39.1); MEAN CORPUSCULAR HEMOGLOBIN 26.5 pg (28-32); MEAN CORPUSCULAR HGB CONC 31.3 g/dL (31-35); MEAN CORPUSCULAR VOLUME 84.6 fL (81-99); MONOCYTES # (AUTO) 0.9 (0.2-0.8); MONOCYTES % 13.5 % (4.4-11.3); NEUTROPHILS # (AUTO) 4.2 (2.1-6.9); NEUTROPHILS % 61.9 % (38.7-80.0); PLATELET COUNT 259 x10e3/uL (140-360); RED BLOOD COUNT 3.89 x10e6/uL (3.6-5.1)
[2019-05-04 05:52] LABS: ANION GAP 14.8 mmol/L (8-16); CALCIUM 8.5 mg/dL (8.4-10.2); CREATININE, SERUM 1.36 mg/dL (0.57-1.11); POTASSIUM 3.8 mmol/L (3.5-5.1)
[2019-05-04] MEDS: VANCOMYCIN 1GM/NS 250 ML 250 ML IV SCH ×2 (06:22→16:02)
[2019-05-04] MEDS: FUROSEMIDE INJ 10 MG/ML 4 ML VIAL IV SCH ×2 (06:40→20:23)
--- NOTE | 2019-05-04 07:17 | NUR ---
Pt became aggressive and combative when network professional came to draw labs. After talking, pt agreed to have labs drawn. Radiology came shortly after that, again pt became aggressive and refused CXR. Day shift RN, Anastacia aware that this needs to be completed still. Shortly after, pt O2 alarming, at bedside and pt is again aggressive, removing NC O2, pulling at IV/BP cuff, becoming very combative and refusing O2. Pt finally agreed to put O2 back on, O2 improved to 96%. Pt displays that she is very upset, however with the communication barrier it is hard to assist in needs. Tried to calm pt down and reassure her I am here to help and refusing care at this time is not a good decision. Pt finally calmed down, all monitoring/O2 attached, and bedside report given.
[2019-05-04] MEDS: PANTOPRAZOLE SOD 40 MG TABEC PO SCH (08:03)
[2019-05-04] MEDS: DULOXETINE HCL 30 MG DELAYED RELEASE PO SCH ×2 (08:03→16:02)
[2019-05-04] MEDS: METRONIDAZOLE 500MG/NS 100ML 100 ML IV SCH ×3 (08:03→22:10)
[2019-05-04] MEDS: GABAPENTIN 300 MG CAP PO SCH ×2 (08:03→16:02)
[2019-05-04] MEDS: METOCLOPRAMIDE HCL 10 MG TAB PO SCH ×2 (08:03→16:02)
[2019-05-04] MEDS: DIVALPROEX SODIUM 125 MG TABDR...ER PO SCH ×2 (08:03→16:02)
--- NOTE | 2019-05-04 10:27 | Diagnostic Imaging Report ---
A single frontal view of the chest. HISTORY: Acute respiratory failure, effusion COMPARISON: None available. DISCUSSION: Portable technique, limits sensitivity of the exam. Soft tissue attenuation markedly limits sensitivity of the exam. Overlying artifacts. Left anterior oblique rotation. Tubes/Lines: None Lungs and pleura: Low lung volumes result in bibasilar vascular crowding, accentuation of the pulmonary interstitial markings, central pulmonary vasculature, and the cardiac silhouette. Allowing for these limitations, the findings are as follows: Bibasilar atelectasis. Small left pleural effusion. Diffusely increased pulmonary interstitial markings. Left greater than right small pleural effusions are probable. Heart and mediastinum: The visualized cardiac silhouette appear(s) and central pulmonary vasculature appear enlarged. Bones and soft tissues: Appear unremarkable, given this limited exam. IMPRESSION: 1. Probable left greater than right pleural effusions and left greater than right atelectasis. 2. Probable volume overload resulting in central pulmonary vascular congestion and moderate pulmonary edema. 3. Superimposed pneumonia or aspiration may be a consideration the appropriate settings. Signed by: Dr. Scott Hermosillo D.O., M.M.M. on 05/04/2019 10:24 AM
[2019-05-04] MEDS ORDERED: FENTANYL 50 MCG/HR PATCH TOP SCH (15:00)
[2019-05-04] MEDS: FENTANYL 50 MCG/HR PATCH TOP SCH ×2 (15:23→16:02)
[2019-05-04] MEDS: ENOXAPARIN SOD INJ 40 MG/0.4 ML SYR SC SCH (16:03)
--- NOTE | 2019-05-04 16:52 | Progress Note ---
DATE: 05/04/2019 Medicine Progress Note SUBJECTIVE: The patient did well overnight. She was able to tolerate the BiPAP and now she is on nasal cannula. She does get aggressive on occasion according to the nursing staff. There was the patient's mother at bedside. I discussed plan of care with her. She seems to be okay, has no other issues, no complaints, no comments at this time. Otherwise, the patient is stable. General Surgery did come see her, Dr. Mcgee, no complaints from there as well. PHYSICAL EXAMINATION: VITAL SIGNS: Temperature is 97.2, pulse 82, respiratory rate is 16, blood pressure 111/68, and pulse ox 93% on 3.5 liters of nasal cannula. GENERAL: Not in acute distress. Alert and oriented x3. Cooperative on examination. HEENT: Head is normocephalic and atraumatic. Eyes; pupils are equal, round, and reactive to light bilaterally. Extraocular movements are intact bilaterally. Throat; no evidence of erythema or exudates in the posterior pharynx. Has poor dentition. NECK: Supple. Good range of motion. PULMONARY: Clear to auscultation bilaterally. No wheezing or rhonchi. Does have positive rales. CARDIOVASCULAR: Positive S1 and S2. No murmurs, rubs, or gallops appreciated. ABDOMEN: Soft, nondistended, and nontender to palpation. Bowel sounds present. MUSCULOSKELETAL: Strength is 5/5 throughout. No evidence of any muscle deficits on examination. No weakness appreciated. NEUROLOGIC: Cranial nerves II through XII grossly intact. No evidence of any neurological deficits on exam. SKIN: Intact. Warm to touch. Good cap refill. PSYCHIATRIC: Normal affect and mood. EXTREMITIES: No edema. Good range of motion throughout. LABORATORY DATA: Show a white count of 6.7, hemoglobin 10.3, hematocrit 32.9, and platelets of 259. PT 14, INR 1.1, and PTT is 31. Chemistry; sodium 141, potassium 3.8, chloride 103, bicarb 27, anion gap of 14, BUN is 21, creatinine is 1.36, glucose is 125, lactic acid 8.3, but normal, and calcium 8.5. Procalcitonin is pending, probably no need at this time as the patient is stable. Troponins are negative. Urinalysis, concerning for underlying UTI. Microbiology: Urine culture positive for gram-negative bacillus. Awaiting for final identification. Blood cultures, no growth. IMAGING STUDIES: Chest x-ray, this morning shows left greater than right pleural effusions and left greater than right atelectasis. Probable volume overload resulting in central pulmonary vascular congestion and moderate pulmonary edema. Superimposed pneumonia or aspiration can be a consideration as well. IMPRESSION: 1. Acute respiratory distress, likely due to underlying pulmonary edema, now currently on nasal cannula. 2. Abdominal pain with probable underlying ileus. 3. Concerns for abdominal wall cellulitis. 4. Status post reports of colostomy performed by General Surgery several weeks ago. 5. Does have urinary tract infection. 6. Acute kidney injury secondary to dehydration. 7. Type 2 diabetes. 8. Hypertension. 9. Chronic pain syndrome. 10. History of psychiatric disorders. 11. History of cerebrovascular accident in the past, at baseline, aphasic. PLAN: At this time, in relation to her respiratory status, she has improved tremendously. She is on 3.5 liters nasal cannula and agreed to continue to wear the oxygen during my evaluation. We did stop the fluids, put her on IV diuretics for increased diuresis. She is still getting antibiotics for her underlying possible abdominal wall cellulitis as well. General Surgery did evaluate her, feels very comfortable in what she is doing and advanced her diet to clear liquid diet. In relation to her UTI, we are still pending. It is positive for urine gram-negative bacilli, awaiting identification. Continue with IV antibiotics for now. Her kidney function improved after IV hydration as well. She is on insulin sliding scale, Accu-Cheks, A1c. Blood pressure is stable. Now that she is taking oral pills, I did renew her home medications. I have renewed her fentanyl patch as well. She does have a history of multiple psychiatric disorders for which her medications have now been restarted. Otherwise, she is currently doing well, has no other issues. We will continue to follow very closely with all the consultants. She did get denied for transferred to [facility]. They are still working on some other means of transport to different facility due to family reasons. We will continue with same plan of care and monitor very closely and get a.m. labs. MD JENNIFER Beltrán/JOHNATHAN /[id number]
[2019-05-04] MEDS ORDERED: POTASSIUM CHLORIDE 20 MEQ TAB CR PO STA (19:12)
--- NOTE | 2019-05-04 19:12 | NUR ---
PULMONARY / CRITICAL CARE MEDICINE DATE OF ENCOUNTER: 05/04/2019 SUBJECTIVE: BIPAP off yesterday pm Some desaturations to 70% during the night when off oxygen multiple BMs resumed last night, patient is much better miranda, UOP patient getting pain medications again REVIEW OF SYSTEMS: no headaches, no rash OBJECTIVE: VITAL SIGNS: vital signs are noted and reviewed per the chart GENERAL: NAD, AO x 3 HEENT: Normocephalic, atraumatic. NECK: Supple. Throat, midline. LUNGS: Bilateral air entry, decreased breath sounds at bases, rare rhonchi. CARDIOVASCULAR: S1, S2. No murmurs, rubs, or gallops. ABDOMINAL: Soft, nontender. EXTREMITIES: No clubbing. No cyanosis. trace edema of the legs, painful to touch. INTEGUMENT: No rash. No purpura. LABORATORY DATA: cr 1.36, bun 21, hco3 27, 3.8 k 33 hct wbc 7 IMPRESSION AND PLAN: 1. Acute respiratory failure, BiPAP salvage on/off 2. Suspect chronic cardiopulmonary disease. 3. Obesity, chance of obesity hypoventilation. 4. Abdominal distention, worsen by ileus. 5. Suspected obstructive sleep apnea / sleep hypoventilation. 6. Decreased lung volumes on chest radiography, chronic. Obesity hypoventilation risk 7. History of aphasia, possible upper airway, laryngeal palsies, or dystonia. 8. Debility, chronic. Chronic right-sided hemiparesis. The patient walks 1 to 2 rooms with a walker now. 9. Abnormal chest radiography, left-sided pleural effusion, small to moderate 10. Postoperative stay, status post reversal of colostomy 1 week ago. 11. Postoperative ileus. Post operative + opiates +/- other 12. Diabetes, hypertension, history of two cerebrovascular accidents, chronic kidney disease, peripheral neuropathy, gastroesophageal reflux disease. 13. History of cirrhosis due to hemochromatosis. 14. Chronic smoker. Continue off BiPAP rescue, although BIPAP can be offered for chronic issues above. Continue diuretics. Give more K Bronchodilators as needed. Early mobilization Pain medications per patient/family/others. Opened subject but this seemed to be emotional Ensure bowel function Check chest US, chest x-ray intermittent, make sure the pleural effusion is not worsening. Thank you very much for this consult. Please call with questions.
--- NOTE | 2019-05-04 19:50 | NUR ---
Verified order of 20 PO K for K 3.[address] Rivera.
[2019-05-04] MEDS: AMITRIPTYLINE HCL 25 MG TAB PO SCH (20:22)
[2019-05-04] MEDS: ATORVASTATIN 10 MG TAB PO SCH (20:22)
--- NOTE | 2019-05-04 23:37 | NUR ---
OFFERED TO ASSIST WITH TURNING PATIENT AND GAVE ORAL CUES TO TURN AT 2000 AND 2300. PATIENT REFUSED TO TURN. EDUCATED PATIENT ON IMPORTANCE OF TURNING TO PREVENT SKIN BREAKDOWN. PT VERBALIZED UNDERSTANDING BUT STILL REFUSED. SISTER AT BEDSIDE EXPLAINED ALSO TO PATIENT.
[2019-05-05] VITALS (20 sets, daily range): BP systolic 96–128; BP diastolic 46–80
[2019-05-05] MEDS: CEFTRIAXONE SOD 1 GM/NS 50 ML 50 ML IV SCH ×2 (00:05→23:50)
[2019-05-05] MEDS: VANCOMYCIN 1GM/NS 250 ML 250 ML IV SCH (01:24)
[2019-05-05] MEDS: HYDROMORPHONE 1MG/1ML INJ IV PRN ×5 (01:25→20:17)
[2019-05-05 05:00] LABS: BASOPHILS # (AUTO) 0.1 (0.0-0.1); BASOPHILS % 1.1 % (0.0-1.0); EOSINOPHILS # (AUTO) 0.5 (0.0-0.4); EOSINOPHILS % 8.2 % (0.0-6.0); HEMATOCRIT 35.3 % (34.2-44.1); HEMOGLOBIN 10.7 g/dL (12.0-16.0); LYMPHOCYTES # (AUTO) 1.1 (1.0-3.2); LYMPHOCYTES % 16.6 % (18.0-39.1); MEAN CORPUSCULAR HEMOGLOBIN 25.4 pg (28-32); MEAN CORPUSCULAR HGB CONC 30.3 g/dL (31-35); MEAN CORPUSCULAR VOLUME 83.6 fL (81-99); MONOCYTES % 14.9 % (4.4-11.3); NEUTROPHILS # (AUTO) 3.8 (2.1-6.9); NEUTROPHILS % 58.7 % (38.7-80.0); PLATELET COUNT 289 x10e3/uL (140-360); RED BLOOD COUNT 4.22 x10e6/uL (3.6-5.1); RED CELL DISTRIBUTION WIDTH 17.8 % (11.7-14.4)
[2019-05-05 05:29] LABS: ANION GAP 14.4 mmol/L (8-16); CALCIUM 8.7 mg/dL (8.4-10.2); CREATININE, SERUM 1.24 mg/dL (0.57-1.11); POTASSIUM 3.4 mmol/L (3.5-5.1)
[2019-05-05] MEDS: METRONIDAZOLE 500MG/NS 100ML 100 ML IV SCH ×3 (05:40→21:09)
--- NOTE | 2019-05-05 06:18 | Diagnostic Imaging Report ---
EXAMINATION: CHEST SINGLE (PORTABLE) COMPARISON: Chest x-ray 05/04/2019 INDICATION: CHF, respiratory failure ^chf ^[id number] ^[id number] DISCUSSION: Frontal view of the chest obtained at 0603 hours. HEART AND MEDIASTINUM: Stable cardiomegaly and aortic tortuosity. Pulmonary veins are prominent and stable. LINES: None. LUNGS: Lung volumes are low. There is bibasilar atelectasis. Discoid atelectasis in the left upper lobe is stable. PLEURA: Right and left lateral costophrenic angles are blunted. No pneumothorax. BONES AND SOFT TISSUES: No focal osseous lesion. The soft tissues are normal. IMPRESSION: No change in atelectasis and small pleural effusions. Stable cardiomegaly and pulmonary venous congestion. Signed by: Dr. She Seymour MD on 05/05/2019 6:15 AM
[2019-05-05] MEDS: PANTOPRAZOLE SOD 40 MG TABEC PO SCH (07:56)
[2019-05-05] MEDS: METOCLOPRAMIDE HCL 10 MG TAB PO SCH ×2 (08:42→17:15)
[2019-05-05] MEDS: DIVALPROEX SODIUM 125 MG TABDR...ER PO SCH ×2 (08:42→17:15)
[2019-05-05] MEDS: GABAPENTIN 300 MG CAP PO SCH ×2 (08:42→17:15)
[2019-05-05] MEDS: DULOXETINE HCL 30 MG DELAYED RELEASE PO SCH ×2 (08:42→17:15)
[2019-05-05] MEDS: FUROSEMIDE INJ 10 MG/ML 4 ML VIAL IV SCH (08:42)
[2019-05-05] MEDS ORDERED: POTASSIUM CHLORIDE 10MEQ EA PO ONE (12:30)
--- NOTE | 2019-05-05 13:04 | NUR ---
ST NOTE: Pt refused Speech Therapy services today, will reattempt follow up session at later time. Hand off to SELVIN Hayes
--- NOTE | 2019-05-05 13:35 | NUR ---
PULMONARY / CRITICAL CARE MEDICINE DATE OF ENCOUNTER: 05/05/2019 SUBJECTIVE: 2 L/min oxygen 96% saturation miranda in place not needing bipap REVIEW OF SYSTEMS: no headaches, no rash OBJECTIVE: VITAL SIGNS: vital signs are noted and reviewed per the chart GENERAL: NAD, AO x 3 HEENT: Normocephalic, atraumatic. NECK: Supple. Throat, midline. LUNGS: Bilateral air entry, decreased breath sounds at bases, rare rhonchi. CARDIOVASCULAR: S1, S2. No murmurs, rubs, or gallops. ABDOMINAL: Soft, nontender. EXTREMITIES: No clubbing. No cyanosis. trace edema of the legs, painful to touch. INTEGUMENT: No rash. No purpura. LABORATORY DATA: cr 1.24, k 3.4, wbc 6.4, hct 35, plt 289 IMPRESSION AND PLAN: 1. Acute respiratory failure, BiPAP salvage on/off 2. Suspect chronic cardiopulmonary disease. 3. Obesity, chance of obesity hypoventilation. 4. Abdominal distention, worsen by ileus. 5. Suspected obstructive sleep apnea / sleep hypoventilation. 6. Decreased lung volumes on chest radiography, chronic. Obesity hypoventilation risk 7. History of aphasia, possible upper airway, laryngeal palsies, or dystonia. 8. Debility, chronic. Chronic right-sided hemiparesis. The patient walks 1-2 rooms with a walker now. 9. Abnormal chest radiography, left-sided pleural effusion, small to moderate 10. Postoperative stay, status post reversal of colostomy 1 week ago. 11. Postoperative ileus. Post operative + opiates +/- other 12. Diabetes, hypertension, history of two cerebrovascular accidents, chronic kidney disease, peripheral neuropathy, gastroesophageal reflux disease. 13. History of cirrhosis due to hemochromatosis. 14. Chronic smoker. Continue off BiPAP rescue, although BIPAP can be offered for chronic issues above. Continue diuretics. Give more K Bronchodilators as needed. Early mobilization Pain medications per patient/family/others. chest x-ray intermittent, make sure the pleural effusion is not worsening else check US chest Thank you very much for this consult. Please call with questions.
[2019-05-05] MEDS ORDERED: FUROSEMIDE INJ 10 MG/ML 4 ML VIAL IV ONE (14:00)
[2019-05-05] MEDS: ENOXAPARIN SOD INJ 40 MG/0.4 ML SYR SC SCH (17:15)
[2019-05-05] MEDS ORDERED: SODIUM CHLORIDE 0.9% 250ML 250 ML ONE (20:02)
[2019-05-05] MEDS: ATORVASTATIN 10 MG TAB PO SCH (20:11)
[2019-05-05] MEDS: AMITRIPTYLINE HCL 25 MG TAB PO SCH (20:11)
[2019-05-05] MEDS ORDERED: VANCOMYCIN HCL 1.25 GM in SODIUM CHLORIDE 0.9% 250ML 250 ML IV SCH (22:00)
[2019-05-06] VITALS (7 sets, daily range): BP systolic 106–159; BP diastolic 56–85
[2019-05-06] MEDS: ONDANSETRON HCL INJ 2MG/ML 2ML 2 MG/ML VIAL IV PRN ×2 (04:33→20:42)
[2019-05-06] MEDS: HYDROMORPHONE 1MG/1ML INJ IV PRN ×4 (04:33→20:42)
--- NOTE | 2019-05-06 05:42 | Diagnostic Imaging Report ---
EXAMINATION: CHEST SINGLE (PORTABLE) COMPARISON: 05/05/2019 INDICATION: Pleural effusion, CHF ^chf DISCUSSION: Frontal view of the chest obtained at 0521 hours. HEART AND MEDIASTINUM: Stable cardiomegaly LINES: None. LUNGS: Improved aeration of the right lower lobe. Subsegmental atelectasis of the middle lobe persists. Improved aeration of the left lower lobe with stable subsegmental atelectasis of the upper lobe. No interstitial edema. PLEURA: No pleural effusion or pneumothorax. BONES AND SOFT TISSUES: No focal osseous lesion. The soft tissues are normal. IMPRESSION: Improved aeration of the lower lobes. Persistent subsegmental atelectasis in the right middle lobe and left upper lobe. Signed by: Dr. She Seymour MD on 05/06/2019 5:38 AM
[2019-05-06 05:59] LABS: BASOPHILS # (AUTO) 0.1 (0.0-0.1); BASOPHILS % 1.1 % (0.0-1.0); EOSINOPHILS # (AUTO) 0.5 (0.0-0.4); EOSINOPHILS % 7.5 % (0.0-6.0); HEMOGLOBIN 11.3 g/dL (12.0-16.0); LYMPHOCYTES # (AUTO) 1.3 (1.0-3.2); LYMPHOCYTES % 19.5 % (18.0-39.1); MEAN CORPUSCULAR HGB CONC 31.4 g/dL (31-35); MEAN CORPUSCULAR VOLUME 82.9 fL (81-99); MONOCYTES % 14.3 % (4.4-11.3); NEUTROPHILS # (AUTO) 3.8 (2.1-6.9); PLATELET COUNT 277 x10e3/uL (140-360); RED BLOOD COUNT 4.34 x10e6/uL (3.6-5.1); RED CELL DISTRIBUTION WIDTH 17.4 % (11.7-14.4)
[2019-05-06] MEDS: METRONIDAZOLE 500MG/NS 100ML 100 ML IV SCH ×3 (06:08→21:09)
[2019-05-06 06:20] LABS: ANION GAP 12.7 mmol/L (8-16); CALCIUM 8.6 mg/dL (8.4-10.2); CREATININE, SERUM 1.13 mg/dL (0.57-1.11)
[2019-05-06 06:27] LABS: POTASSIUM 2.7 mmol/L (3.5-5.1)
--- NOTE | 2019-05-06 06:33 | NUR ---
Received lab critical results for K 2.7. Called carlos manuel Christianson to give K 40 meq now and K 40 meq in 2 hours.
[2019-05-06] MEDS ORDERED: POTASSIUM CHLORIDE 20 MEQ TAB CR PO ONE ×2 (07:00→09:30)
[2019-05-06] MEDS: GABAPENTIN 300 MG CAP PO SCH ×2 (08:28→16:45)
[2019-05-06] MEDS: PANTOPRAZOLE SOD 40 MG TABEC PO SCH (08:28)
[2019-05-06] MEDS: DULOXETINE HCL 30 MG DELAYED RELEASE PO SCH ×2 (08:28→16:45)
[2019-05-06] MEDS: METOCLOPRAMIDE HCL 10 MG TAB PO SCH ×2 (08:28→16:45)
[2019-05-06] MEDS: FUROSEMIDE 40 MG TAB PO SCH (08:28)
[2019-05-06] MEDS: DIVALPROEX SODIUM 125 MG TABDR...ER PO SCH ×2 (08:28→16:45)
[2019-05-06 08:37] LABS: MAGNESIUM 1.4 MG/DL (1.3-2.1); PHOSPHORUS 3.8 MG/DL (2.3-4.7)
--- NOTE | 2019-05-06 15:35 | NUR ---
PULMONARY / CRITICAL CARE MEDICINE DATE OF ENCOUNTER: 05/06/2019 SUBJECTIVE: chronic miranda in back pain PO diet tolerated 1L/min oxygen REVIEW OF SYSTEMS: no headaches, no rash OBJECTIVE: VITAL SIGNS: vital signs are noted and reviewed per the chart GENERAL: NAD, AO x 3 HEENT: Normocephalic, atraumatic. NECK: Supple. Throat, midline. LUNGS: Bilateral air entry, decreased breath sounds at bases, rare rhonchi. CARDIOVASCULAR: S1, S2. No murmurs, rubs, or gallops. ABDOMINAL: Soft, nontender. EXTREMITIES: No clubbing. No cyanosis. trace edema of the legs, painful to touch. INTEGUMENT: No rash. No purpura. LABORATORY DATA: 2.7 k, cr 1.1, wbc 6.6, hct 36 IMPRESSION AND PLAN: 1. Acute respiratory failure, BiPAP salvage on/off 2. Suspect chronic cardiopulmonary disease. 3. Obesity, chance of obesity hypoventilation. 4. Abdominal distention, worsen by ileus. 5. Suspected obstructive sleep apnea / sleep hypoventilation. 6. Decreased lung volumes on chest radiography, chronic. Obesity hypoventilation risk 7. History of aphasia, possible upper airway, laryngeal palsies, or dystonia. 8. Debility, chronic. Chronic right-sided hemiparesis. The patient walks 1-2 rooms with a walker now. 9. Abnormal chest radiography, left-sided pleural effusion, small to moderate 10. Postoperative stay, status post reversal of colostomy 1 week ago. 11. Postoperative ileus. Post operative + opiates +/- other 12. Diabetes, hypertension, history of two cerebrovascular accidents, chronic kidney disease, peripheral neuropathy, gastroesophageal reflux disease. 13. History of cirrhosis due to hemochromatosis. 14. Chronic smoker. Continue diuretics. Give more K Bronchodilators as needed. Early mobilization Pain medications per patient/family/others. chest x-ray intermittent, make sure the pleural effusion is not worsening else check US chest Thank you very much for this consult. Please call with questions.
[2019-05-06] MEDS: ENOXAPARIN SOD INJ 40 MG/0.4 ML SYR SC SCH (16:45)
--- NOTE | 2019-05-06 19:49 | NUR ---
RECEIVED PATIENT LAYING SEMI FOWLERS IN BED, AAOX3, RR EVEN AND NON-LABORED, O2 BY NC AT 2L. NO S/SX OF DISTRESS NOTED. (L) IV WRAPPED FOR PATIENT TO RECEIVE BED BATH. LEFT PT LAYING SEMI FOWLERS IN BED, BED IN LOW LOCKED POSITION, SIDE RAILS UPX2, CALL LIGHT AND PHONE WITHIN REACH.
[2019-05-06] MEDS: ATORVASTATIN 10 MG TAB PO SCH (20:42)
[2019-05-06] MEDS: AMITRIPTYLINE HCL 25 MG TAB PO SCH (20:42)
[2019-05-06] MEDS ORDERED: VANCOMYCIN HCL 1.25 GM in SODIUM CHLORIDE 0.9% 250ML 250 ML IV SCH (22:00)
[2019-05-07] VITALS (8 sets, daily range): BP systolic 110–158; BP diastolic 59–96
[2019-05-07] MEDS: CEFTRIAXONE SOD 1 GM/NS 50 ML 50 ML IV SCH (01:18)
[2019-05-07] MEDS: HYDROMORPHONE 1MG/1ML INJ IV PRN ×5 (01:18→21:01)
[2019-05-07] MEDS: METRONIDAZOLE 500MG/NS 100ML 100 ML IV SCH (05:48)
[2019-05-07 06:06] LABS: BASOPHILS # (AUTO) 0.1 (0.0-0.1); BASOPHILS % 1.6 % (0.0-1.0); EOSINOPHILS # (AUTO) 0.6 (0.0-0.4); HEMATOCRIT 37.9 % (34.2-44.1); HEMOGLOBIN 11.5 g/dL (12.0-16.0); LYMPHOCYTES # (AUTO) 1.7 (1.0-3.2); MEAN CORPUSCULAR HEMOGLOBIN 25.5 pg (28-32); MEAN CORPUSCULAR HGB CONC 30.3 g/dL (31-35); MONOCYTES # (AUTO) 0.9 (0.2-0.8); MONOCYTES % 14.5 % (4.4-11.3); NEUTROPHILS # (AUTO) 3.1 (2.1-6.9); NEUTROPHILS % 48.4 % (38.7-80.0); PLATELET COUNT 276 x10e3/uL (140-360); RED BLOOD COUNT 4.51 x10e6/uL (3.6-5.1); RED CELL DISTRIBUTION WIDTH 17.4 % (11.7-14.4)
[2019-05-07 06:34] LABS: CALCIUM 9.1 mg/dL (8.4-10.2); CREATININE, SERUM 1.17 mg/dL (0.57-1.11)
[2019-05-07] MEDS ORDERED: MAGNESIUM SULFATE 2GM/50ML IV ONE (08:30)
[2019-05-07] MEDS ORDERED: DEXTROSE 50% SYRINGE 50 ML IV PRN (08:30)
[2019-05-07] MEDS ORDERED: MAGNESIUM SULFATE 2GM/50ML 50 ML IV ONE (08:30)
[2019-05-07] MEDS: FUROSEMIDE 40 MG TAB PO SCH (09:08)
[2019-05-07] MEDS: DULOXETINE HCL 30 MG DELAYED RELEASE PO SCH ×2 (09:08→18:31)
[2019-05-07] MEDS: GABAPENTIN 300 MG CAP PO SCH ×2 (09:08→18:31)
[2019-05-07] MEDS: PANTOPRAZOLE SOD 40 MG TABEC PO SCH (09:08)
[2019-05-07] MEDS: DIVALPROEX SODIUM 125 MG TABDR...ER PO SCH ×2 (09:08→18:31)
[2019-05-07] MEDS: METOCLOPRAMIDE HCL 10 MG TAB PO SCH ×2 (09:08→18:31)
[2019-05-07] MEDS: POTASSIUM CHLORIDE 20 MEQ TAB CR PO SCH ×3 (10:03→18:31)
--- NOTE | 2019-05-07 10:09 | NUR ---
patient in bed, changed diaper, patient tried to get out from bed Tillman pulled in side of bed and she said its hurting , redirected her to bed, not in any distress, encouraged her to use call light which in reach, Bed alarm ON
[2019-05-07] MEDS: INSULIN LISPRO 100 UNIT/1 ML 3ML VIAL SQ SCH ×3 (11:51→21:01)
--- NOTE | 2019-05-07 13:06 | NUR ---
PULMONARY / CRITICAL CARE MEDICINE DATE OF ENCOUNTER: 05/07/2019 SUBJECTIVE: miranda in place 3L/min oxygen CXR better aeration REVIEW OF SYSTEMS: no headaches, no rash OBJECTIVE: VITAL SIGNS: vital signs are noted and reviewed per the chart GENERAL: NAD, AO x 3 HEENT: Normocephalic, atraumatic. NECK: Supple. Throat, midline. LUNGS: Bilateral air entry, decreased breath sounds at bases, rare rhonchi. CARDIOVASCULAR: S1, S2. No murmurs, rubs, or gallops. ABDOMINAL: Soft, nontender. EXTREMITIES: No clubbing. No cyanosis. trace edema of the legs, painful to touch. INTEGUMENT: No rash. No purpura. LABORATORY DATA: k 3.0, cr 1.2. 6 wbc. IMPRESSION AND PLAN: 1. Acute respiratory failure, BiPAP salvage on/off 2. Suspect chronic cardiopulmonary disease. 3. Obesity, chance of obesity hypoventilation. 4. Abdominal distention, worsen by ileus. 5. Suspected obstructive sleep apnea / sleep hypoventilation. 6. Decreased lung volumes on chest radiography, chronic. Obesity hypoventilation risk 7. History of aphasia, possible upper airway, laryngeal palsies, or dystonia. 8. Debility, chronic. Chronic right-sided hemiparesis. The patient walks 1-2 rooms with a walker now. 9. Abnormal chest radiography, left-sided pleural effusion, small to moderate 10. Postoperative stay, status post reversal of colostomy 1 week ago. 11. Postoperative ileus. Post operative + opiates +/- other 12. Diabetes, hypertension, history of two cerebrovascular accidents, chronic kidney disease, peripheral neuropathy, gastroesophageal reflux disease. 13. History of cirrhosis due to hemochromatosis. 14. Chronic smoker. Continue diuretics. Give more K Bronchodilators as needed. Early mobilization Pain medications per patient/family/others. chest x-ray intermittent, effusion is improving Thank you very much for this consult. Please call with questions.
[2019-05-07] MEDS: FENTANYL 50 MCG/HR PATCH TOP SCH (15:14)
[2019-05-07] MEDS ORDERED: NOVOLIN SQ SCH (16:30)
[2019-05-07] MEDS: HUMULIN 70/30 VIAL SQ SCH (16:50)
--- NOTE | 2019-05-07 18:10 | NUR ---
patient resting in bed, no distress noted, call light in reach
[2019-05-07] MEDS: ENOXAPARIN SOD INJ 40 MG/0.4 ML SYR SC SCH (18:31)
--- NOTE | 2019-05-07 18:52 | NUR ---
WALKING ROUNDS PERFORMED, RECEIVED PT LAYING SEMI FOWLERS IN BED, AAOX3, RR EVEN AND NON-LABORED, O2 BY NC AT 2L. NO S/SX OF DISTRESS NOTED. ANTERIOR ABD INCISION CDI. LEFT PT LAYING SEMI FOWLERS IN BED, BED IN LOW LOCKED POSITION, SIDE RAILS UPX2, CALL LIGHT AND PHONE WITHIN REACH.
[2019-05-07] MEDS ORDERED: QUETIAPINE FUMARATE 25 MG TAB PO SCH (21:00)
[2019-05-07] MEDS: AMITRIPTYLINE HCL 25 MG TAB PO SCH (21:01)
[2019-05-07] MEDS: ATORVASTATIN 10 MG TAB PO SCH (21:01)
[2019-05-08] VITALS: BP 111/69
[2019-05-08] MEDS: CEFTRIAXONE SOD 1 GM/NS 50 ML 50 ML IV SCH (01:21)
[2019-05-08] MEDS: HYDROMORPHONE 1MG/1ML INJ IV PRN ×3 (03:21→12:28)
[2019-05-08 04:00] VITALS: BP 139/66
[2019-05-08 06:11] LABS: BASOPHILS # (AUTO) 0.1 (0.0-0.1); BASOPHILS % 1.2 % (0.0-1.0); EOSINOPHILS # (AUTO) 0.7 (0.0-0.4); EOSINOPHILS % 8.6 % (0.0-6.0); HEMATOCRIT 37.5 % (34.2-44.1); HEMOGLOBIN 11.6 g/dL (12.0-16.0); LYMPHOCYTES # (AUTO) 1.8 (1.0-3.2); LYMPHOCYTES % 22.9 % (18.0-39.1); MEAN CORPUSCULAR HEMOGLOBIN 25.7 pg (28-32); MEAN CORPUSCULAR HGB CONC 30.9 g/dL (31-35); MEAN CORPUSCULAR VOLUME 83.1 fL (81-99); MONOCYTES % 12.8 % (4.4-11.3); NEUTROPHILS # (AUTO) 4.2 (2.1-6.9); NEUTROPHILS % 53.7 % (38.7-80.0); PLATELET COUNT 298 x10e3/uL (140-360); RED BLOOD COUNT 4.51 x10e6/uL (3.6-5.1); RED CELL DISTRIBUTION WIDTH 17.4 % (11.7-14.4)
[2019-05-08 06:35] LABS: CREATININE, SERUM 1.09 mg/dL (0.57-1.11)
--- NOTE | 2019-05-08 07:10 | NUR ---
Received patient lying in bed with eyes closed. Respiration even and unlabored without SOB. Call light in reach.
[2019-05-08] MEDS: HUMULIN 70/30 VIAL SQ SCH (08:00)
[2019-05-08] MEDS: INSULIN LISPRO 100 UNIT/1 ML 3ML VIAL SQ SCH ×2 (08:00→12:16)
[2019-05-08 08:04] VITALS: BP 132/73
[2019-05-08] MEDS: DULOXETINE HCL 30 MG DELAYED RELEASE PO SCH (08:11)
[2019-05-08] MEDS: METOCLOPRAMIDE HCL 10 MG TAB PO SCH (08:12)
[2019-05-08] MEDS: GABAPENTIN 300 MG CAP PO SCH (08:12)
[2019-05-08] MEDS: FUROSEMIDE 40 MG TAB PO SCH (08:12)
[2019-05-08] MEDS: PANTOPRAZOLE SOD 40 MG TABEC PO SCH (08:13)
[2019-05-08] MEDS: DIVALPROEX SODIUM 125 MG TABDR...ER PO SCH (08:20)
[2019-05-08 08:34] VITALS: BP 132/73
--- NOTE | 2019-05-08 09:11 | NUR ---
CM ATTEMPTED X 2 YESTERDAY AND ONCE THIS AM TO REACH PT'S MOTHER REJI MI AT [phone]; NO ANSWER; LEFT VOICE MAIL EACH TIME WITH NO RETURN CALL SPOKE WITH DR ROLLE THIS AM REGARDING INABILITY TO REACH PT'S MOTHER DR ROLLE IS PERSONAL FRIENDS WITH PT'S SISTER, ANT MACIAS AND GAVE ME HER NUMBER TO CONTACT ANT MACIAS [phone] I SPOKE WITH ANT MACIAS WHO CONFIRMED PT'S ADDRESS AND STATES PT'S MOTHER IS HOME JUST NOT ANSWERING PHONE CALLS EXPLAINED THAT PT WILL BE DISCHARGED TODAY SHE STATES THEY WISH TO RESUME HOME HEALTH WITH [facility] PH [phone]; FAX [phone] CHOICE LETTER SIGNED OVER PHONE WITH DR ROLLE WITNESS FAXED ORDERS TO ABOVE FAX AND CONFIRMATION REC'D ANT MACIAS REQUESTS CALL WHEN PT IS READY TO COME HOME AND FAMILY WILL COME PICK HER UP NURSE TAMELA NOTIFIED OF ABOVE
--- NOTE | 2019-05-08 11:47 | NUR ---
Patient lying in bed with eyes open. 12 gretel removed from abdomen. No bleeding noted. Wound intact and no s/s of infection noted. Respiration even and unlabored without SOB.
[2019-05-08] MEDS ORDERED: DURAGESIC1 EAC1 TD (12:01)
[2019-05-08 12:04] VITALS: BP 139/82
--- NOTE | 2019-05-08 12:51 | NUR ---
PULMONARY / CRITICAL CARE MEDICINE DATE OF ENCOUNTER: 05/08/2019 SUBJECTIVE: Looking better still in lots of pain BM REVIEW OF SYSTEMS: no headaches, no rash OBJECTIVE: VITAL SIGNS: vital signs are noted and reviewed per the chart GENERAL: NAD, AO x 3 HEENT: Normocephalic, atraumatic. NECK: Supple. Throat, midline. LUNGS: Bilateral air entry, decreased breath sounds at bases, rare rhonchi. CARDIOVASCULAR: S1, S2. No murmurs, rubs, or gallops. ABDOMINAL: Soft, nontender. EXTREMITIES: No clubbing. No cyanosis. trace edema of the legs, painful to touch. INTEGUMENT: No rash. No purpura. LABORATORY DATA: k 4.0, cr 1.09. 8 wbc, hct 37 IMPRESSION AND PLAN: 1. Acute respiratory failure, BiPAP salvage on/off 2. Suspect chronic cardiopulmonary disease. 3. Obesity, chance of obesity hypoventilation. 4. Abdominal distention, worsen by ileus. 5. Suspected obstructive sleep apnea / sleep hypoventilation. 6. Decreased lung volumes on chest radiography, chronic. Obesity hypoventilation risk 7. History of aphasia, possible upper airway, laryngeal palsies, or dystonia. 8. Debility, chronic. Chronic right-sided hemiparesis. The patient walks 1-2 rooms with a walker now. 9. Abnormal chest radiography, left-sided pleural effusion, small to moderate 10. Postoperative stay, status post reversal of colostomy 1 week ago. 11. Postoperative ileus. Post operative + opiates +/- other 12. Diabetes, hypertension, history of two cerebrovascular accidents, chronic kidney disease, peripheral neuropathy, gastroesophageal reflux disease. 13. History of cirrhosis due to hemochromatosis. 14. Chronic smoker. Continue some diuretics. Bronchodilators as needed. Early mobilization Pain medications per patient/family/others. chest x-ray intermittent, effusion is improving. Outpatient CXR Pulmonary workup as outpatient reasonable Thank you very much for this consult. Please call with questions.
--- NOTE | 2019-05-08 13:10 | NUR ---
The patient is to be discharge to home today. PIV to left FA discontinued, catheter tip intact, no bleeding noted. Family members at bedside.
--- NOTE | 2019-05-08 13:19 | NUR ---
Patient discharged from facility to home. Patient assisted out via staff. Reviewed discharge instructions, follow up appts and RX's given.
--- NOTE | 2019-05-08 19:53 | Discharge Summary ---
PRIMARY CARE PHYSICIAN: Jean Marie Palacios MD. ADDITIONAL ATTENDING PHYSICIAN: Jean Marie Palacios MD. CONSULTANTS: 1. Ej Mcgee MD. 2. Cal Rivera MD. FINAL DIAGNOSES: 1. Small bowel obstruction secondary to ileus with recent colostomy takedown with the reanastomosis. 2. Acute hypoxia secondary to panic attack and abdominal pain. 3. Baseline cerebrovascular accident with right-sided weakness, mostly bed and wheelchair-bound, required shipping and receiving assistant. 4. Electrolyte disorder, particularly hypokalemia, status post replacement. 5. Baseline depression and anxiety disorder. SUMMARY: The patient is a 44-year-old female came into the hospital with a panic attack after she was having difficulty with pain control, small bowel obstruction with ileus, and abdominal distention. The patient with recent abdominal surgery, colostomy takedown with anastomosis. CT scan showed no leakage or any abscess forming in the abdomen basically with the patient with significant ileus due to multiple problem including constipation and immobilities. The patient then developed significant panic attack, pain and went into near respiratory failure, hypoxia secondary to hyperventilation. The patient is stable now. She is doing well. She has tolerated all her diet. Workup showed no evidence of PE or DVT. The patient is comfortable now. She has stayed stable. Potassium finally replaced with level of 4. BUN and creatinine of 10 and 1.89, sodium 136. WBC 7.8, hemoglobin of 11.6, hematocrit 37.5, and platelets is 298. The patient is stable, tolerated all her diet. She had bowel movement. She will remain with a Tillman catheter in place. We will discharge the patient home, resume home medication and we will continue to monitor the patient closely outpatient. At this time, the patient is stable. She will go home today. Discussed with the patient and family at length on multiple day and the patient will continue with outpatient close monitoring. Resume home health and physical therapy. MD Monalisa IbrahimT/MODL /[id number]
== END 2019-05-08 13:19 | disposition home or self-care (01) | DRG 871 ==
LOC: ER 20:24 → ERHOLD 05-03 00:28 → ICU 05-03 02:24 → MED/SURG 05-05 15:16
PROVIDERS: ADMIT Internal Medicine; ATTEND Internal Medicine
DX: A41.9 Sepsis, unspecified organism (principal); J96.01 Acute respiratory failure with hypoxia; N17.9 Acute kidney failure, unspecified; N39.0 Urinary tract infection, site not specified; K91.30 Postprocedural intestinal obstruction, unspecified as to partial versus complete; I69.351 Hemiplegia and hemiparesis following cerebral infarction affecting right dominant side; L03.311 Cellulitis of abdominal wall; F41.0 Panic disorder [episodic paroxysmal anxiety]; E87.8 Other disorders of electrolyte and fluid balance, not elsewhere classified; F32.9 Major depressive disorder, single episode, unspecified; F41.9 Anxiety disorder, unspecified; Z99.3 Dependence on wheelchair; Z90.710 Acquired absence of both cervix and uterus; E11.22 Type 2 diabetes mellitus with diabetic chronic kidney disease; I12.9 Hypertensive chronic kidney disease with stage 1 through stage 4 chronic kidney disease, or unspecified chronic kidney disease; N18.9 Chronic kidney disease, unspecified; Z79.4 Long term (current) use of insulin; K21.9 Gastro-esophageal reflux disease without esophagitis; E11.42 Type 2 diabetes mellitus with diabetic polyneuropathy; I69.320 Aphasia following cerebral infarction; Z90.49 Acquired absence of other specified parts of digestive tract; F17.200 Nicotine dependence, unspecified, uncomplicated; G47.33 Obstructive sleep apnea (adult) (pediatric); I69.391 Dysphagia following cerebral infarction; R13.19 Other dysphagia; G89.4 Chronic pain syndrome; E86.0 Dehydration; E66.9 Obesity, unspecified; Z68.34 Body mass index [BMI] 34.0-34.9, adult; E87.6 Hypokalemia; K74.60 Unspecified cirrhosis of liver
CPT/HCPCS: 36415; 71045; 74176; 78582; 80048; 80053; 80202; 81001; 82550; 82553; 82948; 83036; 83605; 83735; 84100; 84145; 84484; 85025; 85610; 85730; 87040; 87086; 87186; 93005; 93306; 94660; 97139; 99284; A9540; A9558; J0696; J1170; J1644; J1650; J1940; J2060; J2270; J2405; J3370; J3475; J3480; J7030; J7050